=== PATIENT | female | born 1955 | race African-American/Black ===

== ENCOUNTER 2017-02-24 11:15 | Inpatient (IN) | payer MEDICARE, BC ==
[2017-02-24 14:30] VITALS: BMI 36.8
[2017-03-02] MEDS ORDERED: Tranexamic Acid 1,000 MG/100 ML BAG ONE ×2 (08:27→13:06)
[2017-03-02] MEDS ORDERED: Levofloxacin 500 mg/D5W 100 ml Premix Bag ONE (08:27)
[2017-03-02] MEDS ORDERED: Tranexamic Acid 1,000 MG in Sodium Chloride 0.9% 100 ML IVPB SCH (08:45)
[2017-03-02] MEDS ORDERED: Vancomycin HCl 1.5 GM in Sodium Chloride 0.9% 250 ML 300 ML IVPB SCH ×2 (08:45→21:00)
[2017-03-02] MEDS ORDERED: Ropivacaine 0.2% HCl/PF 20 ML ONE (09:33)
[2017-03-02] MEDS ORDERED: Fentanyl 100 MCG/2 ML VIAL ONE ×3 (09:33→15:23)
[2017-03-02] MEDS ORDERED: Midazolam HCl 2 mg/2 ml Vial ONE (09:33)
[2017-03-02] MEDS ORDERED: Ketorolac Tromethamine 30 MG/ML VIAL IVP PRN (10:38)
[2017-03-02] MEDS ORDERED: HYDROcodone/Acetaminophen 10/325 mg Tablet PO PRN (10:38)
[2017-03-02] MEDS ORDERED: Ropivacaine 0.2% 550 ML 550 ML NERVE BLCK SCH (10:38)
[2017-03-02] MEDS ORDERED: Ondansetron HCl/PF 4 MG/2 ML Vial IVP PRN ×2 (10:38→12:36)
[2017-03-02] MEDS ORDERED: Zolpidem Tartrate 5 MG TAB PO PRN ×2 (10:38→10:48)
[2017-03-02] MEDS ORDERED: Promethazine HCl 25 MG/ML VIAL IM PRN ×3 (10:38→12:36)
[2017-03-02] MEDS ORDERED: Fentanyl 100 MCG/2 ML VIAL SLOW IVP PRN ×2 (10:39→10:48)
[2017-03-02] MEDS ORDERED: diphenhydrAMINE 25 MG CAP PO PRN (10:48)
[2017-03-02] MEDS ORDERED: Acetaminophen 325 MG TAB PO PRN (10:48)
[2017-03-02] MEDS ORDERED: Ropivacaine 0.5% HCl/PF (150 MG/30 ML VIAL) ONE (11:02)
[2017-03-02] MEDS ORDERED: PHENYLEPHRINE-NS 100 MCG/ML 10 ML SYRINGE ONE (11:28)
[2017-03-02] MEDS ORDERED: Propofol 200 MG/20 ML VIAL ONE (11:28)
[2017-03-02] MEDS ORDERED: Ondansetron HCl/PF 4 MG/2 ML Vial ONE ×2 (11:28→15:40)
[2017-03-02] MEDS ORDERED: ePHEDrine/0.9% NaCl/PF SYRINGE 50 mg/10 ml ONE (11:28)
[2017-03-02] MEDS ORDERED: Promethazine HCl 25 MG/ML VIAL SLOW IVP PRN (12:36)
--- NOTE | 2017-03-02 12:57 | OP ---
PREOPERATIVE DIAGNOSIS: Degenerative joint disease of the left knee. POSTOPERATIVE DIAGNOSIS: Degenerative joint disease of the left knee. SURGEON: Choco Church M.D. CAFETERIA SUPERVISOR: Anthony Burgess PA-C. BLOOD LOSS: Minimal. SPECIMEN: None. DRAINS: None. COMPLICATIONS: None. TOURNIQUET TIME: 53 minutes. IMPLANTS USED: [place] [employer] 4 femur, 3 tibia, 11 mm CSX3 polyethylene, and A29 patella. PROCEDURE IN DETAIL: After informed consent was obtained in the preoperative holding area. The tone ent was taken to the operative suite where general anesthesia was induced. Once adequate level of ge neral anesthesia was obtained, the patient was positioned and a well-padded tourniquet was placed danica und the left proximal thigh. The left lower extremity was then prepped and draped in the usual steri le fashion. Prior to exsanguination, a time out was called and all members of the surgical team agre ed upon site, surgeon, and patient. The extremity was then exsanguinated and the tourniquet was rais ed. A midline longitudinal incision was then made directly over the patella extending two fingerbrea dths above the superior pole of the patella and two fingerbreadths inferior to the inferior patellar pole of the patella. Deeper subcutaneous layers were dissected sharply and local bleeding was contro lled with Bovie electrocautery. A quad tendon longitudinal split was then made sharply and a median parapatellar arthrotomy was carried out both sharp and with Bovie electrocautery, carried down to one fingerbreadth medial to the tibial tubercle. The knee was then placed into flexion and the patella was everted nicely, and a copious fat pad ectomy was performed allowing for greater exposure of the t ibia. The computer-assisted distal femoral fiducial was then placed and pinned firmly, and the dista l femoral cutting guide was pinned firmly into place. The oscillating saw was then used to remove th e appropriate amount of bone. The 4-in-1 cutting block was then placed on the distal femur and the o scillating saw was used to remove the appropriate amount of bone off of the anterior, posterior, and chamfer cuts. After completion of bone cuts, the anterior cruciate ligament was resected sharply and the posterior cruciate ligament retractor was placed and the tibia was subluxed for better exposure. Partial meniscectomies were carried out, and the tibial computer-assisted fiducial was pinned, and the cutting guide was placed. Oscillating saw was then used to remove the bone with Hohmann retracto rs used to take care and protect the collateral ligaments. After the tibial resection was performed, a laminar front desk was placed in between the freshened bone cuts. The knee placed at 90 degrees and further bilateral meniscectomies were carried out, and the curved osteotome and curettage was used t o remove any excess bone spurs in the posterior compartment. Exparel was then injected into the post erior capsule, ondina-articular synovia, pre-patella synovia, and musculature surrounding the capsule. The trial femoral component, tibial baseplate were placed with the appropriate polyethylene trial in sert with an appropriate polyethylene spacer and patellar button. The knee was taken through full ra nge of motion with flexion and extension from 0-90 degrees and patellar broach squarely in the troch michelle without any squinting or subluxation noted. The knee was also stable to varus and valgus stressi ng at 0, 15, 45, and 90 degrees of flexion. The drawer was negative. All trial components were then removed and the keel punch was used to provide the appropriate defect in the tibia with a mallet. Th e freshened bone cuts were copiously irrigated with pulsatile lavage of about 1-1/2 liters to remove all excess debris. The freshened bone cuts were then dried and with suction and lap sponge. The kne e was placed in flexion and retractors were placed to provide access to all bone cuts. Tobramycin im pregnated methyl methacrylate cement was then placed on the freshened bone cuts and implants which we re malleted firmly into place. Curettage and [place] elevators were used to remove any excess bone portia ent. The knee was placed into full extension and the patellar button was placed under compression, a nd the cement was allowed to cure. Once completed, the components were again taken through full rang e of motion and copious irrigation of the knee was carried out with another liter of normal saline. All components were inspected fully with full range of motion and varus and valgus stressing. There w as no laxity noted and full extension was observed clinically. Primary closure was accomplished with #2 interrupted Vicryl stitch of the arthrotomy defect. This was oversewn with a #2 running Quill ba rbed stitch. The gravitational platelet system was then injected into the arthrotomy prior to closur e. The subcutaneous layer was then closed with a running 0 barbed Monocryl stitch and skin closure a ccomplished with a running subcuticular 3-0 Monocryl barbed Quill stitch and augmented with cement on the skin. Tourniquet was lowered. Good spontaneous return of distal pulses was noted clinically an d a sterile dressing was applied to the incision. The procedure was terminated without any complicat ions. The patient was awakened in the operative suite and the tourniquet was removed, and the patien t was taken to the recovery room in stable condition.
--- NOTE | 2017-03-02 14:33 | RAD ---
LEFT KNEE TWO VIEWS: History: Post op total knee. Comparison: None. FINDINGS/IMPRESSION: Satisfactory appearance of left total knee arthroplasty. Expected post-operative gas and edema. POS: [facility]
[2017-03-02] MEDS ORDERED: HYDROcodone/Acetaminophen 10/325 mg Tablet ONE (15:35)
[2017-03-02] MEDS ORDERED: HYDROcodone/Acetaminophen 10/325 mg Tablet PO SCH (15:45)
[2017-03-02] MEDS ORDERED: Ondansetron HCl/PF 4 MG/2 ML Vial SLOW IVP SCH (15:45)
[2017-03-02] MEDS: Sodium Chloride 0.9% 1,000 ML IV SCH (17:44)
[2017-03-02] MEDS: HYDROcodone/Acetaminophen 10/325 mg Tablet PO PRN ×2 (18:29→23:24)
--- NOTE | 2017-03-02 18:45 | PDOC.PN ---
- Subjective Encounter Start Date: 03/02/17 Encounter Start Time: 17:45 Pt seen for management of medical comorbidities, including hypertension. Denies chest pain, shortness of breath, fevers or chills. - Objective MAR Reviewed: Yes Vital Signs & Weight: Vital Signs (12 hours) Temp Pulse Resp BP Pulse Ox 03/02/17 16:20 97.5 F L 87 18 103/67 96 Weight Weight 215 lb Phys Exam - Physical Examination Obese HEENT: moist MMs Neck: supple Respiratory: clear to auscultation bilateral Cardiovascular: RRR Gastrointestinal: soft s/p L knee surgery Neurological: moves all 4 limbs Psychiatric: normal affect Dx/Plan (1) Hypertension Code(s): I10 - ESSENTIAL (PRIMARY) HYPERTENSION Status: Chronic (2) Diabetes type 2, controlled Code(s): E11.9 - TYPE 2 DIABETES MELLITUS WITHOUT COMPLICATIONS Status: Chronic (3) Dyslipidemia Code(s): E78.5 - HYPERLIPIDEMIA, UNSPECIFIED Status: Chronic (4) Hypothyroidism Code(s): E03.9 - HYPOTHYROIDISM, UNSPECIFIED Status: Chronic (5) Obesity (BMI 30-39.9) Code(s): E66.9 - OBESITY, UNSPECIFIED Status: Chronic (6) Tobacco abuse Code(s): Z72.0 - TOBACCO USE Status: Chronic - Plan * . Monitor vital signs, titrate antihypertensives as needed. Start accuchecksw, insulin sliding scale. Smoking cessation counseling provided, start nicotine replacement therapy. Review of Systems - Review of Systems Respiratory: negative: Cough, Dry, Shortness of Breath, Hemoptysis, SOB with Excertion, Pleuritic Pain, Sputum, Wheezing Cardiovascular: negative: chest pain, palpitations, orthopnea, paroxysmal nocturnal dyspnea, edema, light headedness - Medications/Allergies Allergies/Adverse Reactions: Allergies Allergy/AdvReac Type Severity Reaction Status Date / Time amitriptyline Allergy Verified 02/24/17 14:31 amlodipine besylate Allergy Swollen Verified 02/24/17 14:31 [[address] [facility]] Lips amoxicillin Allergy Verified 02/24/17 14:31 atorvastatin Allergy Verified 02/24/17 14:31 azithromycin Allergy Verified 02/24/17 14:31 simvastatin Allergy Verified 02/24/17 14:33 tramadol Allergy makes me Verified 02/24/17 14:31 crazy Medications: Current Medications Acetaminophen (Tylenol) 650 mg PO Q4H PRN PRN Reason: RAMOS/ T > 101F; Mild Pain (1-3) Hydrocodone Bitart/Acetaminophen ([place] 10/325) 1 tab PO Q4H PRN PRN Reason: Pain (1-3) Hydrocodone Bitart/Acetaminophen ([place] 10/325) 2 tab PO Q4H PRN PRN Reason: PAIN (4-6) Last Admin: 03/02/17 18:29 Dose: 2 tab Alogliptin Benzoate (Alogliptin) 25 mg PO QAM [facility] Aspirin (Aspirin) 325 mg PO BID [facility] Celecoxib (Celebrex) 200 mg PO BID [facility] Cyclobenzaprine HCl (Flexeril) 5 mg PO TID PRN PRN Reason: SPASM Diphenhydramine HCl (Benadryl) 25 mg PO Q6H PRN PRN Reason: Itching Ergocalciferol (Drisdol) 1.25 mg PO Q7DAYS [facility] Fentanyl (Sublimaze) 50 mcg SLOW IVP Q1H PRN PRN Reason: breakthrough pain Ferrous Gluconate (Fergon) 324 mg PO BID-WM [facility] Glipizide (Glucotrol) 5 mg PO DAILY-AC [facility] Ropivacaine (Ropivacaine 0.2% 550 Ml) 550 mls @ 10 mls/hr NERVE BLCK INF [facility] Levofloxacin 500 mg/ Device 100 mls @ 100 mls/hr IVPB 0900 [facility] Stop: 03/03/17 09:59 Sodium Chloride (Normal Saline 0.9%) 1,000 mls @ 100 mls/hr IV .Q10H [facility] Last Admin: 03/02/17 17:44 Dose: Not Given Vancomycin HCl 1.5 gm/ Sodium (Chloride) 300 mls @ 200 mls/hr IVPB 2100 [facility] Stop: 03/02/17 22:29 Iron/Minerals/Multivitamins (Theragran M) 1 tab PO DAILY [facility] Ketorolac Tromethamine (Toradol) 15 mg IVP Q6H PRN PRN Reason: Moderate Pain (4-6) Stop: 03/05/17 10:39 Levothyroxine Sodium (Synthroid) 75 mcg PO 0600 [facility] Mometasone Furoate/Formoterol Fumar (Dulera 200 Mcg/5 Mcg Inhaler) 1 puff INH BID-RT [facility] Ondansetron HCl (Zofran) 4 mg IVP Q6H PRN PRN Reason: Nausea/Vomiting Pregabalin (Lyrica) 75 mg PO BID [facility] Promethazine HCl (Phenergan) 12.5 mg IM Q4H PRN PRN Reason: Nausea/Vomiting Rosuvastatin Calcium (Crestor) 10 mg PO HS [facility] Senna/Docusate Sodium (Senokot S) 2 tab PO BID [facility] Sertraline HCl (Zoloft) 50 mg PO QAM [facility] Sodium Chloride (Flush - Normal Saline) 10 ml IVF PRN PRN PRN Reason: Saline Flush Triamterene/HCTZ (Maxzide-25) 1 tab PO QAM [facility] Zolpidem Tartrate (Ambien) 5 mg PO HSPRN PRN PRN Reason: Insomnia
[2017-03-02] MEDS ORDERED: hydrALAZINE 20 MG/ML VIAL SLOW IVP PRN (19:04)
[2017-03-02] MEDS ORDERED: Dextrose 50% Abboject 50 ML SYRINGE SLOW IVP PRN (19:04)
[2017-03-02] MEDS ORDERED: Dextrose 5% in Water 1,000 ML IV PRN (19:04)
[2017-03-02] MEDS: Cyclobenzaprine 10 MG TAB PO PRN (19:48)
[2017-03-02] MEDS: Pregabalin 75 MG CAP PO SCH (19:48)
[2017-03-02] MEDS: Nicotine 14 MG PATCH TD SCH (19:49)
[2017-03-02] MEDS: Aspirin 325 MG TAB PO SCH (19:49)
[2017-03-02] MEDS: Mometasone/Formoterol 120 PUFF INHALER INH SCH (20:36)
[2017-03-03] MEDS: Sodium Chloride 0.9% 1,000 ML IV SCH ×3 (00:42→16:49)
[2017-03-03] MEDS: HYDROcodone/Acetaminophen 10/325 mg Tablet PO PRN ×2 (04:49→09:00)
[2017-03-03] MEDS: Levothyroxine Sodium 75 MCG TAB PO SCH (04:50)
[2017-03-03 05:20] LABS: Hematocrit 39.9 % (36.0-47.0); Mean Platelet Volume 6.7 fL (7.4-10.4); Red Blood Cell (RBC) Count 3.73 mill/uL (4.20-5.40); White Blood Cell (WBC) Count 11.3 thou/uL (4.8-10.8)
[2017-03-03] MEDS: Mometasone/Formoterol 120 PUFF INHALER INH SCH ×2 (07:03→18:29)
[2017-03-03] MEDS: Ferrous Gluconate 324 MG TAB PO SCH ×2 (07:52→17:20)
[2017-03-03] MEDS: glipiZIDE 5 MG TAB PO SCH (07:52)
[2017-03-03] MEDS: Alogliptin 25 MG TAB PO SCH (08:52)
[2017-03-03] MEDS: Aspirin 325 MG TAB PO SCH ×2 (08:52→20:32)
[2017-03-03] MEDS: Pregabalin 75 MG CAP PO SCH ×2 (08:53→20:31)
[2017-03-03] MEDS: Multivitamin W/ Minerals 1 TAB PO SCH (08:53)
[2017-03-03] MEDS: Senokot S 8.6-50 MG TAB PO SCH ×2 (08:54→20:31)
[2017-03-03] MEDS: Triamterene/Hydrochlorothiazide 37.5 mg/25 mg Tablet PO SCH (08:54)
[2017-03-03] MEDS: Cyclobenzaprine 10 MG TAB PO PRN (08:59)
[2017-03-03] MEDS ORDERED: Fentanyl 5000 MCG/250 ML CADD IV PRN (12:09)
[2017-03-03] MEDS ORDERED: Naloxone HCl 0.4 mg/ml Vial IV PRN (12:09)
[2017-03-03] MEDS ORDERED: FENTANYL IV PRN (13:45)
[2017-03-03] MEDS ORDERED: SODIUM CHLORIDE IV PRN (13:45)
[2017-03-03] MEDS ORDERED: ADMIXTURE FEE IV PRN (13:45)
[2017-03-03] MEDS: HumaLOG 300 UNITS/3 ML VIAL SC PRN (17:21)
--- NOTE | 2017-03-03 19:27 | PDOC.PN ---
- Subjective Encounter Start Date: 03/03/17 Encounter Start Time: 19:26 Subjective: seen and examined feeling nauseous - Objective Vital Signs & Weight: Vital Signs (12 hours) Temp Pulse Resp BP Pulse Ox Pulse Ox Pulse Ox 03/03/17 18:29 85 16 94 L 03/03/17 15:30 98.1 F 97 16 107/70 96 03/03/17 11:25 97.9 F 91 16 99/68 96 03/03/17 08:48 92 L 87 L 03/03/17 07:45 99 F 108 H 20 92 L Pulse Ox 03/03/17 18:29 03/03/17 15:30 03/03/17 11:25 03/03/17 08:48 90 L 03/03/17 07:45 Weight Admit Weight 215 lb Weight 215 lb I&O: 03/02/17 03/03/17 03/04/17 06:59 06:59 06:59 Intake Total 1420 1390 Output Total 500 450 Balance 920 940 Result Diagrams: 03/03/17 04:48 Additional Labs: Accuchecks 03/03/17 03/03/17 03/03/17 15:51 11:33 05:55 POC Glucose 223 H 137 H 211 H Phys Exam - Physical Examination Constitutional: NAD HEENT: PERRLA, moist MMs, sclera anicteric, TM's clear Neck: no nodes, no JVD, supple, full ROM Respiratory: no wheezing, no rales, no rhonchi Cardiovascular: RRR, no significant murmur, no rub Gastrointestinal: soft, non-tender, no distention, positive bowel sounds Dx/Plan (1) S/P lumbar fusion Code(s): Z98.1 - ARTHRODESIS STATUS Status: Acute (2) Status post total right knee replacement Code(s): Z96.651 - PRESENCE OF RIGHT ARTIFICIAL KNEE JOINT Status: Acute (3) Anxiety Code(s): F41.9 - ANXIETY DISORDER, UNSPECIFIED Status: Chronic (4) Diabetes type 2, controlled Code(s): E11.9 - TYPE 2 DIABETES MELLITUS WITHOUT COMPLICATIONS Status: Chronic (5) Dyslipidemia Code(s): E78.5 - HYPERLIPIDEMIA, UNSPECIFIED Status: Chronic (6) Hypertension Code(s): I10 - ESSENTIAL (PRIMARY) HYPERTENSION Status: Chronic (7) Hypothyroidism Code(s): E03.9 - HYPOTHYROIDISM, UNSPECIFIED Status: Chronic (8) Obesity (BMI 30-39.9) Code(s): E66.9 - OBESITY, UNSPECIFIED Status: Chronic - Plan plan discussed w/ family, PT/OT, health social work professor, speech therapy pain management via [employer]OR pump -: Zofran for nausea -: Dispo planning * .
[2017-03-03] MEDS: Nicotine 14 MG PATCH TD SCH (20:31)
[2017-03-03] MEDS: Ondansetron HCl/PF 4 MG/2 ML Vial IVP PRN (20:32)
[2017-03-04] MEDS: Sodium Chloride 0.9% 1,000 ML IV SCH ×2 (03:18→13:31)
[2017-03-04 05:56] LABS: Hematocrit 37.2 % (36.0-47.0); Mean Platelet Volume 6.8 fL (7.4-10.4); Red Blood Cell (RBC) Count 3.51 mill/uL (4.20-5.40); White Blood Cell (WBC) Count 12.8 thou/uL (4.8-10.8)
[2017-03-04] MEDS: HumaLOG 300 UNITS/3 ML VIAL SC PRN ×3 (06:05→20:51)
[2017-03-04] MEDS: Levothyroxine Sodium 75 MCG TAB PO SCH (06:07)
[2017-03-04] MEDS: glipiZIDE 5 MG TAB PO SCH (06:57)
[2017-03-04] MEDS: Mometasone/Formoterol 120 PUFF INHALER INH SCH ×2 (07:34→18:27)
[2017-03-04] MEDS: Senokot S 8.6-50 MG TAB PO SCH ×2 (08:34→20:52)
[2017-03-04] MEDS: Ferrous Gluconate 324 MG TAB PO SCH ×2 (08:37→17:14)
[2017-03-04] MEDS: Pregabalin 75 MG CAP PO SCH ×2 (08:38→21:07)
[2017-03-04] MEDS: Triamterene/Hydrochlorothiazide 37.5 mg/25 mg Tablet PO SCH (08:38)
[2017-03-04] MEDS: Aspirin 325 MG TAB PO SCH ×2 (08:38→20:50)
[2017-03-04] MEDS: Alogliptin 25 MG TAB PO SCH (08:39)
[2017-03-04] MEDS: Multivitamin W/ Minerals 1 TAB PO SCH (08:39)
[2017-03-04] MEDS: HYDROcodone/Acetaminophen 10/325 mg Tablet PO PRN ×3 (09:54→19:44)
[2017-03-04 17:24] LABS: Anion Gap 9 mmol/L (10-20); BUN (Urea Nitrogen) 11 mg/dL (9.8-20.1); BUN/Creatinine Ratio 12.79; Calc. Creatinine Clearance 103 mL/min (70-130); Calcium 8.3 mg/dL (7.8-10.44); Carbon Dioxide 27 mmol/L (23-31); Chloride 100 mmol/L (98-107); Estimated GFR-MDRD 81; Magnesium 2.1 mg/dL (1.6-2.6); Phosphorus 2.4 mg/dL (2.3-4.7)
[2017-03-04] MEDS: Ondansetron HCl/PF 4 MG/2 ML Vial IVP PRN (17:25)
[2017-03-04 17:51] LABS: Troponin I 0.165 ng/mL (< 0.028)
--- NOTE | 2017-03-04 18:14 | RAD ---
PORTABLE CHEST 03/04/17 PROVIDED CLINICAL HISTORY: Shortness of breath. FINDINGS: Comparison 07/04/16. The cardiac silhouette remains enlarged. Vascular calcification involves the aortic arch. There is qu estion of left mid lung zone air space disease. Evaluation is limited by portable technique and patie nt body habitus. IMPRESSION: 1. Cardiomegaly. 2. Possible left mid lung zone air space disease. Followup PA and lateral views of the chest are recommended. POS: [facility]
--- NOTE | 2017-03-04 19:34 | PDOC.PN ---
- Subjective Encounter Start Date: 03/04/17 Encounter Start Time: 17:00 Patient seen and examined. Was in pain when seen around 9 am. RN called around 4 pm due to tachycardia with temp 100. No overnight events - Objective MAR Reviewed: Yes Vital Signs & Weight: Vital Signs (12 hours) Temp Pulse Resp BP Pulse Ox 03/04/17 18:27 78 16 03/04/17 16:48 92/62 92 L 03/04/17 16:46 119 H 22 H 94/68 78 L 03/04/17 16:00 100 F H 120 H 22 H 94/59 L 94 L 03/04/17 12:35 97.9 F 79 18 100/70 96 03/04/17 11:20 110 H 18 99/68 94 L 03/04/17 10:02 116 H 20 95/63 03/04/17 08:00 98.2 F 82 18 99/68 93 L 03/04/17 07:55 98 F 98 18 Weight Admit Weight 215 lb Weight 215 lb I&O: 03/03/17 03/04/17 03/05/17 06:59 06:59 06:59 Intake Total 1420 1390 950 Output Total 500 1400 Balance 920 -10 950 Result Diagrams: 03/05/17 05:07 03/04/17 16:55 Additional Labs: Accuchecks 03/04/17 03/04/17 03/04/17 16:36 12:00 05:27 POC Glucose 219 H 132 H 210 H 03/03/17 20:55 POC Glucose 180 H EKG Reviewed by me: Yes (ST) Phys Exam - Physical Examination Constitutional: NAD Respiratory: no wheezing, no rhonchi Dec AE at bases, Symmetrical, Scat rales at bases Cardiovascular: RRR, no rub tachycardic, no heaves/pulsations Gastrointestinal: soft, non-tender, no distention, positive bowel sounds Musculoskeletal: no edema Neurological: moves all 4 limbs Psychiatric: normal affect, A&O x 3 Dx/Plan - Plan DVT proph w/SCDs (ASA BID per protocol) IMPRESSION: 1. Sinus tachycardia due to low grade fever 2. Fever - prob due to suspected Pneumonia ?Pneumococcus 3. Elevated troponins prob due to #1 4. DM2 5. HTN 6. Obesity BMI 36.9 7. Hypokalemia PLAN: * Empiric Atbx * Follow troponins * AM labs * Encourage IS * Cont to monitor * Replace Potassium Review of Systems - Medications/Allergies Allergies/Adverse Reactions: Allergies Allergy/AdvReac Type Severity Reaction Status Date / Time amitriptyline Allergy Verified 02/24/17 14:31 amlodipine besylate Allergy Swollen Verified 02/24/17 14:31 [From [facility]] Lips amoxicillin Allergy Verified 02/24/17 14:31 atorvastatin Allergy Verified 02/24/17 14:31 azithromycin Allergy Verified 02/24/17 14:31 simvastatin Allergy Verified 02/24/17 14:33 tramadol Allergy makes me Verified 02/24/17 14:31 crazy Medications: Current Medications Acetaminophen (Tylenol) 650 mg PO Q4H PRN PRN Reason: RAMOS/ T > 101F; Mild Pain (1-3) Hydrocodone Bitart/Acetaminophen ([place] 10/325) 1 tab PO Q4H PRN PRN Reason: Pain (1-3) Hydrocodone Bitart/Acetaminophen ([place] 10/325) 2 tab PO Q4H PRN PRN Reason: PAIN (4-6) Last Admin: 03/04/17 15:29 Dose: 2 tab Alogliptin Benzoate (Alogliptin) 25 mg PO QAM [facility] Last Admin: 03/04/17 08:39 Dose: 25 mg Aspirin (Aspirin) 325 mg PO BID [facility] Last Admin: 03/04/17 08:38 Dose: 325 mg Celecoxib (Celebrex) 200 mg PO BID [facility] Cyclobenzaprine HCl (Flexeril) 5 mg PO TID PRN PRN Reason: SPASM Last Admin: 03/03/17 08:59 Dose: 5 mg Dextrose/Water (Dextrose 50%) 25 gm SLOW IVP PRN PRN PRN Reason: Hypoglycemia Diphenhydramine HCl (Benadryl) 25 mg PO Q6H PRN PRN Reason: Itching Ergocalciferol (Drisdol) 1.25 mg PO Q7DAYS [facility] Fentanyl (Sublimaze) 50 mcg SLOW IVP Q1H PRN PRN Reason: breakthrough pain Ferrous Gluconate (Fergon) 324 mg PO BID-[facility] Last Admin: 03/04/17 17:14 Dose: Not Given Glipizide (Glucotrol) 5 mg PO DAILY-[facility] Last Admin: 03/04/17 06:57 Dose: 5 mg Glucagon (Glucagon) 1 mg IM PRN PRN PRN Reason: Hypoglycemia Hydralazine HCl (Apresoline) 10 mg SLOW IVP Q6H PRN PRN Reason: SBP Greater Than 170 Ropivacaine (Ropivacaine 0.2% 550 Ml) 550 mls @ 10 mls/hr NERVE BLCK INF [facility] Dextrose/Water (D5w) 1,000 mls @ 0 mls/hr IV .Q0M PRN; As Directed PRN Reason: Hypoglycemia Fentanyl 5,000 mcg/Miscellaneous Medication 1 each/ Sodium Chloride 250 mls @ 0 mls/hr IV INF PRN; As Directed PRN Reason: Pain Last Admin: 03/03/17 14:34 Dose: 250 mls Insulin Human Lispro (Humalog) 0 units SC .MILD SLIDING SCALE PRN PRN Reason: Mild Correctional Scale Last Admin: 03/04/17 18:51 Dose: 4 unit Iron/Minerals/Multivitamins (Theragran M) 1 tab PO DAILY [facility] Last Admin: 03/04/17 08:39 Dose: 1 tab Ketorolac Tromethamine (Toradol) 15 mg IVP Q6H PRN PRN Reason: Moderate Pain (4-6) Stop: 03/05/17 10:39 Last Admin: 03/04/17 08:39 Dose: 15 mg Levothyroxine Sodium (Synthroid) 75 mcg PO 0600 [facility] Last Admin: 03/04/17 06:07 Dose: 75 mcg Mometasone Furoate/Formoterol Fumar (Dulera 200 Mcg/5 Mcg Inhaler) 1 puff INH BID-RT [facility] Last Admin: 03/04/17 18:27 Dose: 1 puff Naloxone HCl (Narcan) 0.2 mg IV Q5MIN PRN PRN Reason: RR <8 or pt obtun/unarousable Nicotine (Nicoderm Patch) 14 mg TD Q24HR [facility] Last Admin: 03/03/17 20:31 Dose: 14 mg Ondansetron HCl (Zofran) 4 mg IVP Q6H PRN PRN Reason: Nausea/Vomiting Last Admin: 03/04/17 17:25 Dose: 4 mg Pregabalin (Lyrica) 75 mg PO BID [facility] Last Admin: 03/04/17 08:38 Dose: 75 mg Promethazine HCl (Phenergan) 12.5 mg IM Q4H PRN PRN Reason: Nausea/Vomiting Rosuvastatin Calcium (Crestor) 10 mg PO HS [facility] Last Admin: 03/03/17 20:32 Dose: 10 mg Senna/Docusate Sodium (Senokot S) 2 tab PO BID [facility] Last Admin: 03/04/17 08:34 Dose: 2 tab Sertraline HCl (Zoloft) 50 mg PO QAM [facility] Last Admin: 03/04/17 08:38 Dose: 50 mg Sodium Chloride (Flush - Normal Saline) 10 ml IVF PRN PRN PRN Reason: Saline Flush Triamterene/HCTZ (Maxzide-25) 1 tab PO QAM [facility] Last Admin: 03/04/17 08:38 Dose: 1 tab Zolpidem Tartrate (Ambien) 5 mg PO HSPRN PRN PRN Reason: Insomnia
[2017-03-04 20:34] LABS: Troponin I 0.224 ng/mL (< 0.028)
[2017-03-04] MEDS: Nicotine 14 MG PATCH TD SCH (20:50)
[2017-03-04] MEDS: Cyclobenzaprine 10 MG TAB PO PRN (23:05)
[2017-03-05] MEDS: HYDROcodone/Acetaminophen 10/325 mg Tablet PO PRN ×4 (02:00→13:48)
[2017-03-05 05:48] LABS: Hematocrit 36.7 % (36.0-47.0); Mean Platelet Volume 7.3 fL (7.4-10.4); Red Blood Cell (RBC) Count 3.47 mill/uL (4.20-5.40); White Blood Cell (WBC) Count 12.4 thou/uL (4.8-10.8)
[2017-03-05 06:11] LABS: Troponin I 0.156 ng/mL (< 0.028)
[2017-03-05] MEDS: Levothyroxine Sodium 75 MCG TAB PO SCH (06:12)
[2017-03-05] MEDS: HumaLOG 300 UNITS/3 ML VIAL SC PRN (06:14)
[2017-03-05] MEDS: Mometasone/Formoterol 120 PUFF INHALER INH SCH (07:10)
[2017-03-05] MEDS: Alogliptin 25 MG TAB PO SCH (08:44)
[2017-03-05] MEDS: Pregabalin 75 MG CAP PO SCH (08:45)
[2017-03-05] MEDS: glipiZIDE 5 MG TAB PO SCH (08:45)
[2017-03-05] MEDS: Aspirin 325 MG TAB PO SCH (08:45)
[2017-03-05] MEDS: Ferrous Gluconate 324 MG TAB PO SCH (08:45)
[2017-03-05] MEDS: Multivitamin W/ Minerals 1 TAB PO SCH (08:45)
[2017-03-05] MEDS: Triamterene/Hydrochlorothiazide 37.5 mg/25 mg Tablet PO SCH (08:48)
[2017-03-05] MEDS: Senokot S 8.6-50 MG TAB PO SCH (08:48)
[2017-03-05] MEDS ORDERED: Potassium Chloride 10 MEQ TAB PO SCH (09:30)
[2017-03-05 12:23] VITALS: BP 109/75; TEMP 98.1
--- NOTE | 2017-03-05 20:56 | PDOC.PN ---
- Subjective Encounter Start Date: 03/05/17 Encounter Start Time: 09:00 Patient seen and examined. No new complaints. No overnight events. Feels better. No CP/SOB. On room air - Objective Vital Signs & Weight: Vital Signs (12 hours) Temp Pulse Resp BP Pulse Ox 03/05/17 13:19 96 16 94 L 03/05/17 12:00 96 03/05/17 11:47 98.1 F 104 H 16 109/75 94 L 03/05/17 10:35 100 16 Weight Admit Weight 215 lb Weight 215 lb I&O: 03/04/17 03/05/17 03/06/17 06:59 06:59 06:59 Intake Total 1390 1450 Output Total 1400 Balance -10 1450 Result Diagrams: 03/05/17 05:07 03/04/17 16:55 Additional Labs: Accuchecks 03/05/17 03/05/17 11:48 05:47 POC Glucose 168 H 222 H Phys Exam - Physical Examination Constitutional: NAD Respiratory: no wheezing, no rhonchi Cardiovascular: RRR, no rub Gastrointestinal: soft, non-tender, positive bowel sounds Musculoskeletal: no edema Dx/Plan - Plan IMPRESSION: 1. Sinus tachycardia due to low grade fever - resolved. 2. Fever - prob due to suspected Pneumonia ?Pneumococcus - on Levaquin - improving 3. Elevated troponins prob due to #1 with hypoxia requiring supplemental O2 4. DM2 5. HTN 6. Obesity BMI 36.9 7. Hypokalemia PLAN: * Cont Levaquin - script sent * Advised patient to follow up with Dr Michel for possible stress test * AM labs * Encourage IS Laboratory Tests 03/04/17 03/04/17 03/05/17 16:55 19:54 05:07 Troponin I 0.165 H 0.224 H 0.156 H Review of Systems - Review of Systems Cardiovascular: negative: chest pain, palpitations, orthopnea, paroxysmal nocturnal dyspnea, edema, light headedness Gastrointestinal: negative: Nausea, Vomiting, Abdominal Pain, Diarrhea, Constipation, Melena, Hematochezia - Medications/Allergies Allergies/Adverse Reactions: Allergies Allergy/AdvReac Type Severity Reaction Status Date / Time amitriptyline Allergy Verified 02/24/17 14:31 amlodipine besylate Allergy Swollen Verified 02/24/17 14:31 [From [facility]] Lips amoxicillin Allergy Verified 02/24/17 14:31 atorvastatin Allergy Verified 02/24/17 14:31 azithromycin Allergy Verified 02/24/17 14:31 simvastatin Allergy Verified 02/24/17 14:33 tramadol Allergy makes me Verified 02/24/17 14:31 jason
[2017-03-05] MEDS ORDERED: CeleCOXIB 100 MG CAP PO SCH (21:00)
--- NOTE | 2017-03-08 12:16 | EKG ---
Test Reason : Blood Pressure : / mmHG Vent. Rate : 118 BPM Atrial Rate : 118 BPM P-R Int : 140 ms QRS Dur : 086 ms QT Int : 330 ms P-R-T Axes : 055 -22 -29 degrees QTc Int : 462 ms Sinus tachycardia Possible Left atrial enlargement Septal infarct , age undetermined cannot be excluded Abnormal ECG Confirmed by RUBY STEVENSON ([id number]) on 03/08/2017 12:16:16 PM Referred By: JOLIE Confirmed By:RUBY STEVENSON
[2017-03-09] MEDS ORDERED: Ergocalciferol 1.25 MG(50,000 UNITS) CAP PO SCH (09:00)
--- NOTE | 2017-03-09 13:23 | DIS ---
DATE OF ADMISSION: 03/02/2017 DATE OF DISCHARGE: 03/05/2017 PREOPERATIVE DIAGNOSIS: Left knee osteoarthritis/degenerative joint disease. DISCHARGE DIAGNOSIS: Left knee osteoarthritis/degenerative joint disease. PROCEDURE: The patient underwent a left total knee replacement. HOSPITAL COURSE: Hospital stay was unremarkable. The patient was admitted to [address] she worked with staff, physical therapy, occupational therapy, and did quite well. She was also seen by our medical service and overall our hospital stay was unremarkable. DISCHARGE CONDITION: Good/stable. DISPOSITION: Home with home health. FOLLOWUP: Followup would be in 3-4 weeks or sooner if there are problems or concerns. DISCHARGE MEDICATIONS: Given with usage instructions. This is Anthony Burgess PA-C dictating for Choco Church M.D.
== END 2017-03-05 14:10 | disposition home health service (06) | DRG 469 ==
LOC: SJJU 03-02 08:00 → SURG B 03-02 16:54
PROVIDERS: ADMIT Orthopaedic Surgery; ATTEND Orthopaedic Surgery
PROC: 0SRD0J9 Replacement of Left Knee Joint with Synthetic Substitute, Cemented, Open Approach (ICD-10-PCS; principal; 2017-03-02)
PROC: 3E0T3BZ Introduction of Anesthetic Agent into Peripheral Nerves and Plexi, Percutaneous Approach (ICD-10-PCS; 2017-03-02)
DX: M17.12 Unilateral primary osteoarthritis, left knee (principal); J13 Pneumonia due to Streptococcus pneumoniae; M06.9 Rheumatoid arthritis, unspecified; E03.9 Hypothyroidism, unspecified; E11.9 Type 2 diabetes mellitus without complications; I10 Essential (primary) hypertension; M79.7 Fibromyalgia; G47.33 Obstructive sleep apnea (adult) (pediatric); E55.9 Vitamin D deficiency, unspecified; F32.9 Major depressive disorder, single episode, unspecified; J45.909 Unspecified asthma, uncomplicated; K57.30 Diverticulosis of large intestine without perforation or abscess without bleeding; Z96.651 Presence of right artificial knee joint; Z98.1 Arthrodesis status; F17.210 Nicotine dependence, cigarettes, uncomplicated; Z79.84 Long term (current) use of oral hypoglycemic drugs; Z88.1 Allergy status to other antibiotic agents; Z88.8 Allergy status to other drugs, medicaments and biological substances; R50.82 Postprocedural fever; R00.0 Tachycardia, unspecified; E66.9 Obesity, unspecified; Z68.36 Body mass index [BMI] 36.0-36.9, adult; E87.6 Hypokalemia; F41.9 Anxiety disorder, unspecified; E78.2 Mixed hyperlipidemia; R09.02 Hypoxemia
CPT/HCPCS: 36415; 36416; 71010; 80069; 83735; 84484; 85027; 93005; 93010; 94640; 94664; 94760; A4306; C1713; C1776; G8978-GP-CL; G8979-GP-CI; J1885; J1956; J2250; J2405; J2704; J2795; J3010; J3370; J7050; J7620

== ENCOUNTER 2017-02-24 13:56 | Outpatient (CLI) | payer MEDICARE, BC ==
--- NOTE | 2017-02-24 15:55 | RAD ---
TWO VIEWS CHEST: Comparison: 05-21-15 History: Pre-operative radiograph. FINDINGS: Two views of the chest show normal sized cardiomediastinal silhouette. There is no evidence of consol idation, mass, or pleural effusion. Bone anchors are seen in the left humerus from prior left shoulde r surgery. IMPRESSION: No evidence of acute cardiopulmonary disease. POS: [facility]
[2017-02-24 16:23] LABS: Bilirubin Negative (Negative); Blood, Urine Negative (Negative); Glucose, Urine (Dipstick) Negative (Negative); Ketone, Urine Negative (Negative); Nitrite Negative (Negative); Protein, Urine (Dipstick) Negative (Neg-Trace); Urobilinogen 0.2 mg/dL (0.2-1.0)
[2017-02-24 16:25] LABS: Bacteria/HPF None Seen HPF (None Seen); Hyaline Casts/LPF 0-3 HYALINE CAST LPF (0-3 Hyaline)
[2017-02-24 16:28] LABS: Prothrombin Time 13.3 SEC (12.0-14.7)
[2017-02-24 16:29] LABS: PTT 35.5 SEC (22.9-36.1)
[2017-02-24 16:39] LABS: Anion Gap 14 mmol/L (10-20); BUN (Urea Nitrogen) 23 mg/dL (9.8-20.1); Calc. Creatinine Clearance 0 mL/min (70-130); Calcium 9.8 mg/dL (7.8-10.44); Carbon Dioxide 28 mmol/L (23-31); Chloride 103 mmol/L (98-107); Estimated GFR-MDRD 76
[2017-02-24 18:59] LABS: #Basophils 0.1 thou/uL (0.0-0.2); #Eosinphils 0.1 thou/uL (0.0-0.7); #Lymphocytes 4.5 thou/uL (1.20-3.40); #Monocytes 0.9 thou/uL (0.11-0.59); #Neutrophils 8.4 thou/uL (1.40-6.50); %Basophils 0.8 % (0.0-1.0); %Eosinophils 0.9 % (0.0-10.0); %Lymphocytes 32.1 % (21.0-51.0); %Monocytes 6.2 % (0.0-10.0); Hematocrit 50.9 % (36.0-47.0); Macrocytosis SLIGHT = 6-15 cells (100X) (0-5/hpf); Mean Platelet Volume 6.9 fL (7.4-10.4); Polychromasia SLIGHT = 2-3 cells (100X) (0-2/hpf); Red Blood Cell (RBC) Count 4.81 mill/uL (4.20-5.40); White Blood Cell (WBC) Count 14.1 thou/uL (4.8-10.8)
== END 2017-02-24 13:57 | disposition home or self-care (01) ==
LOC: LABBT 13:56
PROVIDERS: ATTEND Orthopaedic Surgery
DX: Z01.818 Encounter for other preprocedural examination (principal); M17.12 Unilateral primary osteoarthritis, left knee
CPT/HCPCS: 71020; 80048; 81001; 85025; 85610; 85730; 86850; 86900; 86901; 87081; 93005; 93010

== ENCOUNTER 2017-03-18 09:25 | Inpatient (IN) | payer MEDICARE, BC ==
[2017-03-17 14:40] VITALS: BMI 36.8
[2017-03-18 10:14] LABS: #Basophils 0.1 thou/uL (0.0-0.2); #Eosinphils 0.1 thou/uL (0.0-0.7); #Lymphocytes 3.2 thou/uL (1.20-3.40); #Monocytes 0.6 thou/uL (0.11-0.59); #Neutrophils 6.5 thou/uL (1.40-6.50); %Basophils 0.6 % (0.0-1.0); %Lymphocytes 30.7 % (21.0-51.0); %Monocytes 5.9 % (0.0-10.0); %Neutrophils 61.8 % (42.0-75.0); Hemoglobin 13.8 g/dL (12.0-16.0); Mean Corpuscular HGB CONC 33.1 g/dL (32.0-36.0); Mean Corpuscular Hemoglobin 35.5 pg (27.0-31.0); Mean Platelet Volume 6.2 fL (7.4-10.4); Platelet Count 401 thou/uL (130-400); RBC Distribution Width 14.3 % (11.5-14.5); Red Blood Cell (RBC) Count 3.88 mill/uL (4.20-5.40); White Blood Cell (WBC) Count 10.6 thou/uL (4.8-10.8)
[2017-03-18] MEDS ORDERED: Fentanyl 100 MCG/2 ML VIAL ONE ×4 (10:53→14:46)
[2017-03-18] MEDS ORDERED: cefTRIAXone\\ROCEPHIN 2 GM in Sodium Chloride 0.9% 100 ML IVPB SCH (12:15)
[2017-03-18] MEDS ORDERED: Vancomycin HCl 1.5 GM in Sodium Chloride 0.9% 250 ML 300 ML IVPB SCH (12:15)
[2017-03-18] MEDS ORDERED: Zolpidem Tartrate 5 MG TAB PO PRN (12:54)
[2017-03-18] MEDS ORDERED: Acetaminophen 325 MG TAB PO PRN (12:54)
[2017-03-18] MEDS ORDERED: diphenhydrAMINE 25 MG CAP PO PRN (12:54)
[2017-03-18] MEDS ORDERED: Promethazine HCl 25 MG/ML VIAL IM PRN (12:54)
[2017-03-18] MEDS ORDERED: Ondansetron HCl/PF 4 MG/2 ML Vial IVP PRN (12:54)
--- NOTE | 2017-03-18 13:21 | OP ---
PREOPERATIVE DIAGNOSES: Rupture of quadriceps and traumatic rupture of total knee incision. POSTOPERATIVE DIAGNOSES: Rupture of quadriceps and traumatic rupture of total knee incision. PROCEDURE: Irrigation and debridement of the left knee with revision of one portion total knee repla cement, size 11 x 3 tibial liner. SURGEON: Choco Chruch M.D. CARD WRITER HAND: Anthony Burgess PA-C. BLOOD LOSS: 200 mL SPECIMEN: Cultures were obtained before antibiotics were given. DRAINS: None. COMPLICATIONS: None. DESCRIPTION OF PROCEDURE: The patient was taken to the operating room where general anesthesia was i nduced. Left leg was prepped and draped in the usual sterile fashion. I did not use a tourniquet on this case. I opened up the skin incision. After the skin was opened, I could see that the quadrice ps tendon repair had ruptured, so the joint was exposed. I performed a complete synovectomy of the j oint. I removed the polyethylene liner and performed posterior synovectomy as well, removed all four materials consisting of sutures and all space including hematoma and nonviable synovium. The f luid was quite clear, did not see any signs of infection. Pulsatile lavage irrigation was used 5 lit ers of Betadine and 5 liters of clear. The retinaculum was repaired with #1 Vicryl for about 12 sutu res and then reinforced with #2 StrataFix, subcutaneous closed with 0 StrataFix, skin was closed with 0 Prolene, and a new polyethylene liner was left in the joint. Postoperative plan for this patient is to consult Dr. Sanchez. She will need 6 weeks of IV antibiotics . Cultures are pending at this time. I just started on vancomycin and Rocephin after cultures were obtained.
[2017-03-18] MEDS ORDERED: Lidocaine 1% PF 5 ML VIAL ONE (13:24)
[2017-03-18] MEDS ORDERED: PROPOFOL 200 MG/20 ML VIAL ONE (13:24)
[2017-03-18] MEDS ORDERED: Ondansetron HCl/PF 4 MG/2 ML Vial ONE (13:24)
[2017-03-18] MEDS ORDERED: Dexamethasone 20 MG/5 ML VIAL ONE (13:24)
[2017-03-18] MEDS ORDERED: HYDROmorphone 0.5 MG/0.5 ML SYRINGE ONE (14:45)
[2017-03-18] MEDS: Sodium Chloride 0.9% 1,000 ML IV SCH ×2 (16:18→20:15)
[2017-03-18] MEDS: Fentanyl 100 MCG/2 ML VIAL SLOW IVP PRN (16:23)
--- NOTE | 2017-03-18 19:10 | CON ---
DATE OF CONSULTATION: 03/18/2017 REASON FOR CONSULTATION: Left TKR disruption with concern for possible infection. HISTORY OF PRESENT ILLNESS: A 61-year-old female with history of type 2 diabetes, hyperlipidemia, hy pertension, hypothyroidism, and rheumatoid arthritis who underwent left knee replacement recently unf ortunately sustained a fall and disruption of the skin. The surgeon was not informed about this and now he had to take her in and do a washout. I did not have a chance of reviewing the operative proce dure. The note has not been transcribed yet. I spoke with Dr. Church and he did a liner exchange an d currently, Ms. Saab denies any headaches. No cough or sputum production. No chest pain. No abdo hank pain, mild pain at the operative site. Little bit drowsy from the anesthesia. PAST MEDICAL HISTORY: Hypertension, osteoarthritis, rheumatoid arthritis, hyperlipidemia, hypothyroi dism, type 2 diabetes. MEDICATIONS: Trazodone, vitamin D, Prozac, albuterol, Celebrex, levothyroxine, Januvia, cyclobenzapr ine, Cymbalta, Nasonex, Valium, glipizide, [place], triamterene, hydrochlorothiazide, and is on vancomy colleen and Rocephin. ALLERGIES: NORVASC, ZOCOR, LIPITOR, AMOXICILLIN, AND AZITHROMYCIN. FAMILY HISTORY: Noncontributory. PHYSICAL EXAMINATION: VITAL SIGNS: Temperature 98.7, blood pressure 140/70, pulse 78, respiratory rate 22. SKIN: Exam of the left knee operative site, peripheral IV access and a Patton catheter. HEENT: Ocular movements are conjugate. Oral cavity is unremarkable. NECK: Supple. LUNGS: With symmetric breath sounds with bilateral faint expiratory wheezing. HEART: S1, S2. Regular rate. No S3 or S4. ABDOMEN: Soft. Not distended or tender. No ascites. No bladder distention. EXTREMITIES: Limitation of movements in lower extremities associated with postop state plus the surg ical procedure. LABORATORY DATA: C-reactive 1.49. White cell count 10.6, hemoglobin 13.8, platelets 401. Chemistri es from 03/04/2017 with potassium 3.3, creatinine 0.7, glucose 230. Liver profile was normal. CRP w as 1.49 from last visit. Microbiology with pending cultures at this time. Gram stain with rare wbc' s, no organism seen. ASSESSMENT: 1. Rheumatoid arthritis. 2. Diabetes type 2. 3. Recent left total knee replacement with disruption following accidental fall, status post washout and liner exchange. DISCUSSION: The patient will continue on IV therapy and then we will follow up the culture results a nd adjust antimicrobials accordingly. PICC line placement. Disposition will probably be either reha bilitation transfer or home. She lives in [place]. I think she has a supportive family. The tone ent needs to strongly consider smoking cessation.
[2017-03-18] MEDS: Senokot S 8.6-50 MG TAB PO SCH (20:14)
[2017-03-18] MEDS: Aspirin 325 MG TAB PO SCH (20:14)
[2017-03-18] MEDS: HYDROcodone/Acetaminophen 10/325 mg Tablet PO PRN (20:14)
[2017-03-18] MEDS: Ferrous Gluconate 324 MG TAB PO SCH (20:15)
[2017-03-19] MEDS: Vancomycin HCl 1.5 GM in Sodium Chloride 0.9% 250 ML 300 ML IVPB SCH ×2 (01:05→14:22)
[2017-03-19] MEDS: HYDROcodone/Acetaminophen 10/325 mg Tablet PO PRN ×6 (01:44→23:07)
[2017-03-19] MEDS ORDERED: Dextrose 5% in Water 1,000 ML IV PRN (04:33)
[2017-03-19] MEDS ORDERED: Dextrose 50% Abboject 50 ML SYRINGE SLOW IVP PRN (04:33)
[2017-03-19] MEDS ORDERED: HumaLOG 300 UNITS/3 ML VIAL SC PRN (04:33)
--- NOTE | 2017-03-19 04:39 | PDOC.PN ---
- Subjective Encounter Start Date: 03/19/17 Encounter Start Time: 04:37 Pt seen for management of medical comorbidities, including diabetes mellitus. Reports pain in L knee, denies chest pain. Reports occasioanl SOBOE. - Objective MAR Reviewed: Yes Vital Signs & Weight: Vital Signs (12 hours) Temp Pulse Resp BP Pulse Ox 03/19/17 00:00 98.5 F 93 18 119/76 93 L 03/18/17 20:15 98.6 F 105 H 18 91 L 03/18/17 20:00 98.6 F 105 H 18 112/71 91 L Weight Weight 215 lb I&O: 03/17/17 03/18/17 03/19/17 06:59 06:59 06:59 Intake Total 610 Output Total 100 Balance 510 Result Diagrams: 03/18/17 10:04 Phys Exam - Physical Examination Obese HEENT: moist MMs, sclera anicteric Neck: supple Respiratory: clear to auscultation bilateral Cardiovascular: RRR Gastrointestinal: soft L knee in dressing Neurological: moves all 4 limbs Psychiatric: normal affect Skin: no rash Dx/Plan (1) DM2 (diabetes mellitus, type 2) Status: Chronic (2) Hypertension Code(s): I10 - ESSENTIAL (PRIMARY) HYPERTENSION Status: Chronic (3) Dyslipidemia Code(s): E78.5 - HYPERLIPIDEMIA, UNSPECIFIED Status: Chronic (4) Hypothyroidism Code(s): E03.9 - HYPOTHYROIDISM, UNSPECIFIED Status: Chronic (5) Obesity (BMI 30-39.9) Code(s): E66.9 - OBESITY, UNSPECIFIED Status: Chronic (6) Tobacco abuse Code(s): Z72.0 - TOBACCO USE Status: Chronic (7) Anxiety Code(s): F41.9 - ANXIETY DISORDER, UNSPECIFIED Status: Chronic - Plan * . Start accuchecks, insulin sliding scale. Monitor vital signs, titrarte antihypertensives as needed. PRN IV hydralazine for blood pressure spikes. Antibiotics as per ID service. Pt counseled re: tobacco cessation, start nicotine patch. DVT prophylaxis and pain management per orthopedic surgery service. Review of Systems - Review of Systems Respiratory: SOB with Excertion. negative: Cough, Dry, Shortness of Breath, Hemoptysis, Pleuritic Pain, Sputum, Wheezing Cardiovascular: negative: chest pain, palpitations, orthopnea, paroxysmal nocturnal dyspnea, edema, light headedness Musculoskeletal: Other (L knee pain) - Medications/Allergies Allergies/Adverse Reactions: Allergies Allergy/AdvReac Type Severity Reaction Status Date / Time amitriptyline Allergy Verified 03/17/17 14:29 amlodipine besylate Allergy Swollen Verified 03/17/17 14:29 [From [facility]] Lips amoxicillin Allergy Verified 03/17/17 14:29 atorvastatin Allergy Verified 03/17/17 14:29 azithromycin Allergy Verified 03/17/17 14:29 simvastatin Allergy Verified 03/17/17 14:29 tramadol Allergy makes me Verified 03/17/17 14:29 crazy Medications: Current Medications Acetaminophen (Tylenol) 650 mg PO Q4H PRN PRN Reason: RAMOS/ T > 101F; Mild Pain (1-3) Hydrocodone Bitart/Acetaminophen ([place] 10/325) 2 tab PO Q4H PRN PRN Reason: Severe Pain (7-10) Last Admin: 03/19/17 01:44 Dose: 2 tab Aspirin (Aspirin) 325 mg PO BID [facility] Last Admin: 03/18/17 20:14 Dose: 325 mg Dextrose/Water (Dextrose 50%) 25 gm SLOW IVP PRN PRN PRN Reason: Hypoglycemia Diphenhydramine HCl (Benadryl) 25 mg PO Q6H PRN PRN Reason: Itching Fentanyl (Sublimaze) 50 mcg SLOW IVP Q30MIN PRN PRN Reason: Moderate Pain (4-6) Fentanyl (Sublimaze) 100 mcg SLOW IVP Q1H PRN PRN Reason: Severe Pain (7-10) Last Admin: 03/18/17 16:23 Dose: 100 mcg Ferrous Gluconate (Fergon) 324 mg PO BID [facility] Last Admin: 03/18/17 20:15 Dose: 324 mg Glucagon (Glucagon) 1 mg IM PRN PRN PRN Reason: Hypoglycemia Ceftriaxone Sodium 2 gm/ (Sodium Chloride) 100 mls @ 200 mls/hr IVPB 1300 [place] Sodium Chloride (Normal Saline 0.9%) 1,000 mls @ 100 mls/hr IV .Q10H [facility] Last Admin: 03/18/17 20:15 Dose: 1,000 mls Vancomycin HCl 1.5 gm/ Sodium (Chloride) 300 mls @ 200 mls/hr IVPB 0200,1400 [facility] Last Admin: 03/19/17 01:05 Dose: 300 mls Dextrose/Water (D5w) 1,000 mls @ 0 mls/hr IV .Q0M PRN; As Directed PRN Reason: Hypoglycemia Insulin Human Lispro (Humalog) 0 units SC .MILD SLIDING SCALE PRN PRN Reason: Mild Correctional Scale Iron/Minerals/Multivitamins (Theragran M) 1 tab PO DAILY [place] Ondansetron HCl (Zofran) 4 mg IVP Q6H PRN PRN Reason: Nausea/Vomiting Promethazine HCl (Phenergan) 12.5 mg IM Q4H PRN PRN Reason: Nausea/Vomiting Senna/Docusate Sodium (Senokot S) 2 tab PO BID [facility] Last Admin: 03/18/17 20:14 Dose: 2 tab Sodium Chloride (Flush - Normal Saline) 10 ml IVF PRN PRN PRN Reason: Saline Flush Zolpidem Tartrate (Ambien) 5 mg PO HSPRN PRN PRN Reason: Insomnia
[2017-03-19] MEDS: Levothyroxine Sodium 75 MCG TAB PO SCH (05:44)
[2017-03-19 06:34] LABS: Hemoglobin 12.2 g/dL (12.0-16.0); Mean Corpuscular HGB CONC 32.5 g/dL (32.0-36.0); Mean Corpuscular Hemoglobin 35.1 pg (27.0-31.0); Mean Platelet Volume 6.5 fL (7.4-10.4); Platelet Count 391 thou/uL (130-400); Red Blood Cell (RBC) Count 3.47 mill/uL (4.20-5.40); White Blood Cell (WBC) Count 11.9 thou/uL (4.8-10.8)
[2017-03-19 06:38] LABS: INR-International Normal Ratio 1.2; Prothrombin Time 15.2 SEC (12.0-14.7)
[2017-03-19 06:57] LABS: Anion Gap 9 mmol/L (10-20); BUN (Urea Nitrogen) 16 mg/dL (9.8-20.1); Calc. Creatinine Clearance 112 mL/min (70-130); Calcium 8.6 mg/dL (7.8-10.44); Carbon Dioxide 27 mmol/L (23-31); Chloride 104 mmol/L (98-107); Estimated GFR-MDRD 89; Glucose 190 mg/dL (80-115); Potassium 4.3 mmol/L (3.5-5.1); Sodium 136 mmol/L (136-145)
[2017-03-19] MEDS: Ferrous Gluconate 324 MG TAB PO SCH ×2 (08:25→20:14)
[2017-03-19] MEDS: Multivitamin W/ Minerals 1 TAB PO SCH (08:26)
[2017-03-19] MEDS: Nicotine 21 MG PATCH TD SCH (08:26)
[2017-03-19] MEDS: Aspirin 325 MG TAB PO SCH ×2 (08:26→20:14)
[2017-03-19] MEDS: Senokot S 8.6-50 MG TAB PO SCH ×2 (08:26→20:14)
[2017-03-19] MEDS: Fentanyl 100 MCG/2 ML VIAL SLOW IVP PRN ×6 (08:49→22:17)
[2017-03-19] MEDS: Sodium Chloride 0.9% 1,000 ML IV SCH ×2 (08:49→20:26)
[2017-03-19] MEDS ORDERED: Ergocalciferol 1.25 MG(50,000 UNITS) CAP PO SCH (09:00)
[2017-03-19] MEDS: cefTRIAXone\\ROCEPHIN 2 GM in Sodium Chloride 0.9% 100 ML IVPB SCH (12:06)
[2017-03-19] MEDS: Mometasone/Formoterol 120 PUFF INHALER INH SCH ×2 (13:04→19:47)
--- NOTE | 2017-03-19 13:42 | SPC ---
RIGHT UPPER EXTREMITY PICC LINE ULTRASOUND AND FLUOROSCOPIC GUIDANCE: Fluoroscopy time: Zero minutes. Dose: 109 mGy*cm2. PROCEDURE: After informed consent had been obtained, the patient was placed on the interventional suite table in a supine position. The right upper arm was prepped and draped in a standard sterile fashion. Topic al anesthesia was achieved utilizing 1% Lidocaine and sodium bicarbonate. Under real-time sonography , the basilic vein of the right upper extremity was accessed with a small caliber needle with venous flash present at the needle hub. A guidewire was then advanced in to the needle, and under real-time fluoroscopy, the guidewire was advanced to the level of the inferior vena cava to confirm appropriat e venous placement. A small skin incision was made and the needle was removed. Over the guidewire, a single lumen PICC line was cut to 42 cm. The PICC line was advanced under real-time fluoroscopy ov er the guidewire to the level of the cavoatrial junction. The guidewire and peelaway sheath were the n removed. PICC line flushed and aspirated appropriately and was secured to the right upper extremit y. There were no procedural complications. IMPRESSION: Technically successful ultrasound and fluoroscopic-guided right upper extremity peripherally inserted central catheter line placement, as above. POS: [facility]
[2017-03-19] MEDS ORDERED: Heparin 1,000 UNITS/ML VIAL ONE (15:21)
[2017-03-19] MEDS ORDERED: Pregabalin 75 MG CAP PO SCH (20:45)
[2017-03-20] MEDS: Vancomycin HCl 1.5 GM in Sodium Chloride 0.9% 250 ML 300 ML IVPB SCH ×2 (01:12→15:03)
[2017-03-20] MEDS: Fentanyl 100 MCG/2 ML VIAL SLOW IVP PRN ×2 (02:26→17:02)
[2017-03-20] MEDS: HYDROcodone/Acetaminophen 10/325 mg Tablet PO PRN ×5 (03:53→21:33)
[2017-03-20] MEDS: Sodium Chloride 0.9% 1,000 ML IV SCH ×2 (03:53→17:48)
[2017-03-20] MEDS: Levothyroxine Sodium 75 MCG TAB PO SCH (05:46)
[2017-03-20 06:37] LABS: Hemoglobin 12.1 g/dL (12.0-16.0); Mean Corpuscular HGB CONC 31.7 g/dL (32.0-36.0); Mean Corpuscular Hemoglobin 34.2 pg (27.0-31.0); Mean Platelet Volume 6.7 fL (7.4-10.4); Platelet Count 365 thou/uL (130-400); RBC Distribution Width 14.2 % (11.5-14.5); Red Blood Cell (RBC) Count 3.53 mill/uL (4.20-5.40); White Blood Cell (WBC) Count 11.3 thou/uL (4.8-10.8)
[2017-03-20] MEDS ORDERED: HYDROcodone/Acetaminophen 10/325 mg Tablet PO PRN (08:11)
[2017-03-20] MEDS: ALPRAZolam 0.5 MG TAB PO PRN ×2 (08:33→18:55)
[2017-03-20] MEDS: Nicotine 21 MG PATCH TD SCH (08:33)
[2017-03-20] MEDS: Losartan 25 MG TAB PO SCH (08:33)
[2017-03-20] MEDS: Aspirin 325 MG TAB PO SCH ×2 (08:33→21:29)
[2017-03-20] MEDS: Ferrous Gluconate 324 MG TAB PO SCH ×2 (08:34→21:29)
[2017-03-20] MEDS: Alogliptin 25 MG TAB PO SCH (08:34)
[2017-03-20] MEDS: Pregabalin 75 MG CAP PO SCH ×2 (08:34→21:30)
[2017-03-20] MEDS: Triamterene/Hydrochlorothiazide 37.5 mg/25 mg Tablet PO SCH (08:34)
[2017-03-20] MEDS: Cyclobenzaprine 10 MG TAB PO PRN ×2 (08:34→18:56)
[2017-03-20] MEDS: Multivitamin W/ Minerals 1 TAB PO SCH (08:34)
[2017-03-20] MEDS ORDERED: CELECOXIB 50 MG PO SCH (09:00)
[2017-03-20] MEDS: Senokot S 8.6-50 MG TAB PO SCH ×2 (09:16→21:30)
[2017-03-20] MEDS: CeleCOXIB 100 MG CAP PO SCH ×2 (09:46→21:29)
[2017-03-20 13:16] LABS: Vancomycin, Trough 22.7 ug/mL
[2017-03-20] MEDS: cefTRIAXone\\ROCEPHIN 2 GM in Sodium Chloride 0.9% 100 ML IVPB SCH (13:59)
--- NOTE | 2017-03-20 14:17 | PDOC.PN ---
- Subjective Encounter Start Date: 03/20/17 Encounter Start Time: 11:20 Pt seen and examined, chart reviewed in its entirety, this is my first visit with this patient. S/P Left TKA revision for presumed infection, on Vanc and rocephin post op. No F/c, no CP or sOB, no N/V/D/C, no hematuria. sykes in place Cultures with rare growth today, no mention of morphology. 10 point ROS performed and neg for all systems except as per HPI - Objective MAR Reviewed: Yes Vital Signs & Weight: Vital Signs (12 hours) Temp Pulse Resp BP Pulse Ox 03/20/17 12:34 97.3 F L 85 16 162/95 H 95 03/20/17 09:03 97.6 F 87 20 150/90 H 95 03/20/17 08:45 97.6 F 87 20 95 03/20/17 04:38 85 20 145/95 H 95 Weight Admit Weight 215 lb Weight 215 lb I&O: 03/19/17 03/20/17 03/21/17 06:59 06:59 06:59 Intake Total 610 1400 Output Total 600 750 Balance 10 650 Result Diagrams: 03/20/17 06:05 03/19/17 06:16 Additional Labs: Accuchecks 03/20/17 03/20/17 03/19/17 11:24 05:59 19:43 POC Glucose 82 110 144 H 03/19/17 16:20 POC Glucose 139 H Radiology Reviewed by me: Yes EKG Reviewed by me: Yes Phys Exam - Physical Examination Constitutional: NAD HEENT: PERRLA, moist MMs, sclera anicteric, oral pharynx no lesions Neck: no nodes, no JVD, supple, full ROM Respiratory: no wheezing, no rales, no rhonchi, clear to auscultation bilateral Cardiovascular: RRR, no significant murmur, no rub Gastrointestinal: soft, non-tender, no distention, positive bowel sounds Musculoskeletal: pulses present, edema present left leg in striaght leg brace, post op dressing in place not removed Neurological: non-focal, normal sensation, moves all 4 limbs Lymphatic: no nodes Psychiatric: normal affect, A&O x 3 Skin: no rash, normal turgor, cap refill <2 seconds Dx/Plan - Plan cont current plan of care, continue antibiotics, PT/OT, licensed social worker, respiratory therapy, out of bed/ambulate * .
[2017-03-20] MEDS: Mometasone/Formoterol 120 PUFF INHALER INH SCH ×2 (15:38→19:08)
[2017-03-20] MEDS: Rosuvastatin 10 MG TAB PO SCH (21:30)
[2017-03-21] MEDS: Fentanyl 100 MCG/2 ML VIAL SLOW IVP PRN (00:49)
[2017-03-21] MEDS: Sodium Chloride 0.9% 1,000 ML IV SCH ×3 (00:50→17:34)
[2017-03-21] MEDS: Vancomycin HCl 1.5 GM in Sodium Chloride 0.9% 250 ML 300 ML IVPB SCH ×2 (01:30→13:41)
[2017-03-21] MEDS: HYDROcodone/Acetaminophen 10/325 mg Tablet PO PRN ×4 (03:11→21:58)
[2017-03-21] MEDS: ALPRAZolam 0.5 MG TAB PO PRN (03:12)
[2017-03-21] MEDS: Levothyroxine Sodium 75 MCG TAB PO SCH (06:43)
[2017-03-21] MEDS: Cyclobenzaprine 10 MG TAB PO PRN ×2 (06:46→17:34)
[2017-03-21 07:08] LABS: Hemoglobin 11.6 g/dL (12.0-16.0); Mean Corpuscular HGB CONC 32.2 g/dL (32.0-36.0); Mean Corpuscular Hemoglobin 34.7 pg (27.0-31.0); Mean Platelet Volume 6.1 fL (7.4-10.4); Platelet Count 344 thou/uL (130-400); Red Blood Cell (RBC) Count 3.35 mill/uL (4.20-5.40); White Blood Cell (WBC) Count 10.2 thou/uL (4.8-10.8)
[2017-03-21] MEDS: glipiZIDE 5 MG TAB PO SCH (08:26)
[2017-03-21] MEDS: Alogliptin 25 MG TAB PO SCH (08:27)
[2017-03-21] MEDS: CeleCOXIB 100 MG CAP PO SCH ×2 (08:27→21:52)
[2017-03-21] MEDS: Aspirin 325 MG TAB PO SCH ×2 (08:27→21:52)
[2017-03-21] MEDS: Ferrous Gluconate 324 MG TAB PO SCH ×2 (08:28→21:52)
[2017-03-21] MEDS: Multivitamin W/ Minerals 1 TAB PO SCH (08:28)
[2017-03-21] MEDS: Losartan 25 MG TAB PO SCH (08:28)
[2017-03-21] MEDS: Senokot S 8.6-50 MG TAB PO SCH ×2 (08:29→21:51)
[2017-03-21] MEDS: Triamterene/Hydrochlorothiazide 37.5 mg/25 mg Tablet PO SCH (08:29)
[2017-03-21] MEDS: Pregabalin 75 MG CAP PO SCH ×2 (08:29→21:53)
[2017-03-21] MEDS: Mometasone/Formoterol 120 PUFF INHALER INH SCH ×2 (08:32→19:15)
[2017-03-21] MEDS: Nicotine 21 MG PATCH TD SCH (08:36)
[2017-03-21] MEDS: cefTRIAXone\\ROCEPHIN 2 GM in Sodium Chloride 0.9% 100 ML IVPB SCH (13:37)
--- NOTE | 2017-03-21 14:07 | PDOC.PN ---
- Subjective Encounter Start Date: 03/21/17 Encounter Start Time: 10:20 no acute events, no new complaints, left leg aching from not being able ot bend. No F/c, no N/V/D/c, no CP or sOB. anxious earlier this AM, got ativan, better. No acute events overnight 10 point ROS performed and neg for all systems except as above - Objective MAR Reviewed: Yes Vital Signs & Weight: Vital Signs (12 hours) Temp Pulse Resp BP Pulse Ox 03/21/17 12:00 97.9 F 93 16 156/94 H 92 L 03/21/17 08:00 97.8 F 85 20 158/96 H 91 L 03/21/17 07:30 97.8 F 85 20 03/21/17 04:00 97.8 F 85 18 151/88 H 98 Weight Admit Weight 215 lb Weight 215 lb I&O: 03/20/17 03/21/17 03/22/17 06:59 06:59 06:59 Intake Total 1400 2102 1320 Output Total 750 6450 2400 Balance 106 -9413 -9051 Result Diagrams: 03/21/17 06:55 03/19/17 06:16 Additional Labs: Accuchecks 03/21/17 03/21/17 03/20/17 11:11 06:26 20:52 POC Glucose 119 H 111 H 166 H 03/20/17 16:50 POC Glucose 101 Phys Exam - Physical Examination Constitutional: NAD HEENT: PERRLA, moist MMs, sclera anicteric, oral pharynx no lesions Neck: no nodes, no JVD, supple, full ROM Respiratory: no wheezing, no rales, no rhonchi, clear to auscultation bilateral Cardiovascular: RRR, no significant murmur, no rub Gastrointestinal: soft, non-tender, no distention, positive bowel sounds Musculoskeletal: pulses present, edema present Neurological: non-focal, normal sensation, moves all 4 limbs Lymphatic: no nodes Psychiatric: normal affect, A&O x 3 Skin: no rash, normal turgor, cap refill <2 seconds Dx/Plan (1) Infected prosthetic knee joint Code(s): T84.59XA - INFECT/INFLM REACTION DUE TO OTH INTERNAL JOINT PROSTH, INIT ; Z96.659 - PRESENCE OF UNSPECIFIED ARTIFICIAL KNEE JOINT Status: Acute Qualifiers: Encounter type: initial encounter Qualified Code(s): T84.59XA - Infection and inflammatory reaction due to other internal joint prosthesis, initial encounter; Z96.659 - Presence of unspecified artificial knee joint; Z96.659 - Presence of unspecified artificial knee joint Comment: presumed. culture with mixed skin elo. broth cloudy, subbed out. On Vanc and rocephin. CCM, follow up cultures, ID on the case (2) DM2 (diabetes mellitus, type 2) Status: Chronic Qualifiers: Diabetes mellitus complication status: without complication Diabetes mellitus marine oil terminal superintendent insulin use: with halfway use Qualified Code(s): E11.9 - Type 2 diabetes mellitus without complications; Z79.4 - FDC (current) use of insulin; Z79.4 - FDC (current) use of insulin; Z79.4 - computer terminal operator ( current) use of insulin; Z79.4 - computer terminal operator (current) use of insulin (3) S/P lumbar fusion Code(s): Z98.1 - ARTHRODESIS STATUS Status: Acute (4) Status post total right knee replacement Code(s): Z96.651 - PRESENCE OF RIGHT ARTIFICIAL KNEE JOINT Status: Chronic (5) Anxiety Code(s): F41.9 - ANXIETY DISORDER, UNSPECIFIED Status: Chronic (6) Dyslipidemia Code(s): E78.5 - HYPERLIPIDEMIA, UNSPECIFIED Status: Chronic (7) Hypertension Code(s): I10 - ESSENTIAL (PRIMARY) HYPERTENSION Status: Chronic Qualifiers: Hypertension type: essential hypertension Qualified Code(s): I10 - Essential (primary) hypertension (8) Hypothyroidism Code(s): E03.9 - HYPOTHYROIDISM, UNSPECIFIED Status: Chronic Qualifiers: Hypothyroidism type: acquired Qualified Code(s): E03.9 - Hypothyroidism, unspecified (9) Obesity (BMI 30-39.9) Code(s): E66.9 - OBESITY, UNSPECIFIED Status: Chronic - Plan cont current plan of care, continue antibiotics, PT/OT * .
[2017-03-21] MEDS: Rosuvastatin 10 MG TAB PO SCH (21:51)
[2017-03-22] MEDS: Vancomycin HCl 1.5 GM in Sodium Chloride 0.9% 250 ML 300 ML IVPB SCH ×2 (02:33→14:39)
[2017-03-22] MEDS: HYDROcodone/Acetaminophen 10/325 mg Tablet PO PRN ×4 (05:42→23:05)
[2017-03-22] MEDS: Levothyroxine Sodium 75 MCG TAB PO SCH (05:44)
[2017-03-22 05:48] LABS: Hemoglobin 11.6 g/dL (12.0-16.0); Mean Corpuscular HGB CONC 32.6 g/dL (32.0-36.0); Mean Corpuscular Hemoglobin 34.8 pg (27.0-31.0); Mean Platelet Volume 6.8 fL (7.4-10.4); Platelet Count 355 thou/uL (130-400); Red Blood Cell (RBC) Count 3.34 mill/uL (4.20-5.40); White Blood Cell (WBC) Count 9.6 thou/uL (4.8-10.8)
[2017-03-22] MEDS: Mometasone/Formoterol 120 PUFF INHALER INH SCH ×2 (07:48→20:20)
[2017-03-22] MEDS: Nicotine 21 MG PATCH TD SCH (07:56)
[2017-03-22] MEDS: Aspirin 325 MG TAB PO SCH ×2 (07:57→22:13)
[2017-03-22] MEDS: Losartan 25 MG TAB PO SCH (07:57)
[2017-03-22] MEDS: Pregabalin 75 MG CAP PO SCH ×2 (07:58→22:11)
[2017-03-22] MEDS: glipiZIDE 5 MG TAB PO SCH (07:58)
[2017-03-22] MEDS: Multivitamin W/ Minerals 1 TAB PO SCH (07:58)
[2017-03-22] MEDS: CeleCOXIB 100 MG CAP PO SCH ×2 (07:58→22:11)
[2017-03-22] MEDS: Ferrous Gluconate 324 MG TAB PO SCH ×2 (07:58→22:12)
[2017-03-22] MEDS: Alogliptin 25 MG TAB PO SCH (07:58)
[2017-03-22] MEDS: Triamterene/Hydrochlorothiazide 37.5 mg/25 mg Tablet PO SCH (07:58)
[2017-03-22] MEDS: Senokot S 8.6-50 MG TAB PO SCH ×2 (07:59→22:12)
--- NOTE | 2017-03-22 12:39 | PDOC.PN ---
- Subjective Encounter Start Date: 03/22/17 Encounter Start Time: 11:00 Pt just transferred herself back to bed alone. SOB, but no CP, some knee pain, straight-leg brace on. No f/C, no N/V/D/C, no CP or orthopnea. vikas abx without itching or rash 10 point ROS performed and neg for all systems except as above - Objective MAR Reviewed: Yes Vital Signs & Weight: Vital Signs (12 hours) Temp Pulse Resp BP Pulse Ox 03/22/17 11:32 97.8 F 89 16 159/96 H 92 L 03/22/17 08:25 97.9 F 79 15 93 L 03/22/17 07:55 97.9 F 79 15 148/88 H 93 L Weight Admit Weight 215 lb Weight 215 lb I&O: 03/21/17 03/22/17 03/23/17 06:59 06:59 06:59 Intake Total 2102 2601 Output Total 6450 2400 Balance -4348 201 Result Diagrams: 03/22/17 05:15 03/19/17 06:16 Additional Labs: Accuchecks 03/22/17 03/22/17 03/21/17 10:37 05:47 19:40 POC Glucose 107 117 H 151 H 03/21/17 17:14 POC Glucose 133 H Phys Exam - Physical Examination Constitutional: NAD HEENT: PERRLA, moist MMs, sclera anicteric, oral pharynx no lesions Neck: no nodes, no JVD, supple, full ROM Respiratory: no wheezing, no rales, no rhonchi, clear to auscultation bilateral Cardiovascular: RRR, no significant murmur, no rub Gastrointestinal: soft, non-tender, no distention, positive bowel sounds Musculoskeletal: no edema, pulses present Neurological: non-focal, normal sensation, moves all 4 limbs Lymphatic: no nodes Psychiatric: normal affect, A&O x 3 Skin: no rash, normal turgor, cap refill <2 seconds Dx/Plan (1) Infected prosthetic knee joint Code(s): T84.59XA - INFECT/INFLM REACTION DUE TO OTH INTERNAL JOINT PROSTH, INIT ; Z96.659 - PRESENCE OF UNSPECIFIED ARTIFICIAL KNEE JOINT Status: Acute Qualifiers: Encounter type: initial encounter Qualified Code(s): T84.59XA - Infection and inflammatory reaction due to other internal joint prosthesis, initial encounter; Z96.659 - Presence of unspecified artificial knee joint; Z96.659 - Presence of unspecified artificial knee joint Comment: presumed. culture with mixed skin elo. broth cloudy, subbed out. On Vanc and rocephin. CCM, follow up cultures, ID on the case (2) DM2 (diabetes mellitus, type 2) Status: Chronic Qualifiers: Diabetes mellitus complication status: without complication Diabetes mellitus shelter insulin use: with lapel padder use Qualified Code(s): E11.9 - Type 2 diabetes mellitus without complications; Z79.4 - e commerce director (current) use of insulin; Z79.4 - nursing home (current) use of insulin; Z79.4 - nursing home ( current) use of insulin; Z79.4 - nursing home (current) use of insulin (3) S/P lumbar fusion Code(s): Z98.1 - ARTHRODESIS STATUS Status: Acute (4) Status post total right knee replacement Code(s): Z96.651 - PRESENCE OF RIGHT ARTIFICIAL KNEE JOINT Status: Chronic (5) Anxiety Code(s): F41.9 - ANXIETY DISORDER, UNSPECIFIED Status: Chronic (6) Dyslipidemia Code(s): E78.5 - HYPERLIPIDEMIA, UNSPECIFIED Status: Chronic (7) Hypertension Code(s): I10 - ESSENTIAL (PRIMARY) HYPERTENSION Status: Chronic Qualifiers: Hypertension type: essential hypertension Qualified Code(s): I10 - Essential (primary) hypertension (8) Hypothyroidism Code(s): E03.9 - HYPOTHYROIDISM, UNSPECIFIED Status: Chronic Qualifiers: Hypothyroidism type: acquired Qualified Code(s): E03.9 - Hypothyroidism, unspecified (9) Obesity (BMI 30-39.9) Code(s): E66.9 - OBESITY, UNSPECIFIED Status: Chronic - Plan * .
[2017-03-22] MEDS: cefTRIAXone\\ROCEPHIN 2 GM in Sodium Chloride 0.9% 100 ML IVPB SCH (13:20)
[2017-03-22 13:36] LABS: Vancomycin, Trough 26.5 ug/mL
--- NOTE | 2017-03-22 16:29 | RAD ---
PA AND LATERAL CHEST 03/22/17 HISTORY: Decreased oxygen saturation. COMPARISON: 03/04/17. FINDINGS: The cardiac silhouette remains enlarged. The pulmonary vasculature is within normal limits. Minimal l inear density seen in the left mid lung zone, but this is a stable finding and may be related to mild chronic lung changes and superimposition of structures. The lungs are otherwise clear. Right sided P ICC line is noted in place with tip overlying the SVC. Vascular calcifications seen in the thoracic a gaurang. IMPRESSION: Cardiomegaly without evidence of an acute cardiopulmonary process. POS: [facility]
[2017-03-22] MEDS: Rosuvastatin 10 MG TAB PO SCH (22:11)
[2017-03-23] MEDS: Vancomycin HCl 1.5 GM in Sodium Chloride 0.9% 250 ML 300 ML IVPB SCH ×2 (03:32→12:08)
[2017-03-23 05:41] LABS: Hemoglobin 11.2 g/dL (12.0-16.0); Mean Corpuscular HGB CONC 30.8 g/dL (32.0-36.0); Mean Corpuscular Hemoglobin 33.1 pg (27.0-31.0); Mean Platelet Volume 6.6 fL (7.4-10.4); Platelet Count 355 thou/uL (130-400); RBC Distribution Width 13.6 % (11.5-14.5); Red Blood Cell (RBC) Count 3.39 mill/uL (4.20-5.40); White Blood Cell (WBC) Count 9.2 thou/uL (4.8-10.8)
[2017-03-23] MEDS: Levothyroxine Sodium 75 MCG TAB PO SCH (06:58)
[2017-03-23] MEDS: Pregabalin 75 MG CAP PO SCH ×2 (07:41→20:52)
[2017-03-23] MEDS: Multivitamin W/ Minerals 1 TAB PO SCH (07:42)
[2017-03-23] MEDS: Aspirin 325 MG TAB PO SCH ×2 (07:42→20:51)
[2017-03-23] MEDS: Losartan 25 MG TAB PO SCH (07:42)
[2017-03-23] MEDS: Triamterene/Hydrochlorothiazide 37.5 mg/25 mg Tablet PO SCH (07:42)
[2017-03-23] MEDS: Alogliptin 25 MG TAB PO SCH (07:42)
[2017-03-23] MEDS: Nicotine 21 MG PATCH TD SCH (07:43)
[2017-03-23] MEDS: glipiZIDE 5 MG TAB PO SCH (07:43)
[2017-03-23] MEDS: Ferrous Gluconate 324 MG TAB PO SCH ×2 (07:43→20:52)
[2017-03-23] MEDS: Senokot S 8.6-50 MG TAB PO SCH ×2 (07:43→20:53)
[2017-03-23] MEDS: CeleCOXIB 100 MG CAP PO SCH ×2 (07:43→20:51)
[2017-03-23] MEDS ORDERED: ISOVUE-370 76%-LOCM 1 ML ONE ×2 (09:58→09:59)
[2017-03-23] MEDS: Mometasone/Formoterol 120 PUFF INHALER INH SCH ×2 (10:01→19:25)
[2017-03-23] MEDS: ALPRAZolam 0.5 MG TAB PO PRN (12:07)
[2017-03-23] MEDS: cefTRIAXone\\ROCEPHIN 2 GM in Sodium Chloride 0.9% 100 ML IVPB SCH ×2 (12:07→18:40)
[2017-03-23] MEDS: HYDROcodone/Acetaminophen 10/325 mg Tablet PO PRN ×2 (12:29→18:27)
[2017-03-23 14:36] LABS: Actual Bicarbonate (HCO3a) 27.2 mEq/L (22-26); Base Excess (BEa) 2.2 mEq/L (0 (+/-) 2.5); CO2 Tension 43.9 mmHg (35.0-45.0); Calcium, Ionized 1.2 mmol/L (1.12-1.30); Hematocrit-ABG 39.2 % (36.0-47.0); Hemoglobin (Hb) 12.2 g/dL (12.0-16.0); pH, Arterial 7.41 (7.35-7.45)
[2017-03-23 14:38] LABS: O2 Tension (PaO2) 48.5 mmHg (80.0-100.0)
[2017-03-23 14:39] LABS: ALV-art Gradient 45.935 (0-20); Puncture Site RBRACH
--- NOTE | 2017-03-23 16:06 | PDOC.PN ---
- Subjective Encounter Start Date: 03/23/17 Encounter Start Time: 09:50 Pt denies any complaints, but does admit to SOB, no ches tpain. no N/V/D/C. doenst like her accuchecks, sugars have been pretty good. Pt hypoxic, mid 80s on RA 10 point ROS performed and neg for all systems except as above. - Objective MAR Reviewed: Yes Vital Signs & Weight: Vital Signs (12 hours) Temp Pulse Resp BP Pulse Ox 03/23/17 12:05 98.0 F 100 18 132/87 92 L 03/23/17 08:40 98.7 F 104 H 20 92 L 03/23/17 08:05 98.7 F 104 H 20 154/95 H 87 L Weight Admit Weight 215 lb Weight 215 lb I&O: 03/22/17 03/23/17 03/24/17 06:59 06:59 06:59 Intake Total 2601 2020 Output Total 2400 Balance 201 2020 Result Diagrams: 03/23/17 04:55 03/19/17 06:16 Additional Labs: Accuchecks 03/23/17 03/22/17 05:53 19:18 POC Glucose 97 123 H Radiology Reviewed by me: Yes EKG Reviewed by me: Yes Phys Exam - Physical Examination Constitutional: NAD HEENT: PERRLA, moist MMs, sclera anicteric, oral pharynx no lesions Neck: no nodes, no JVD, supple, full ROM Respiratory: no wheezing, no rales, no rhonchi, clear to auscultation bilateral Cardiovascular: no significant murmur, no rub regular, tachy Gastrointestinal: soft, non-tender, no distention, positive bowel sounds Musculoskeletal: pulses present, edema present Neurological: non-focal, normal sensation, moves all 4 limbs Lymphatic: no nodes Psychiatric: normal affect, A&O x 3 Skin: no rash, normal turgor, cap refill <2 seconds Dx/Plan (1) Infected prosthetic knee joint Code(s): T84.59XA - INFECT/INFLM REACTION DUE TO OTH INTERNAL JOINT PROSTH, INIT ; Z96.659 - PRESENCE OF UNSPECIFIED ARTIFICIAL KNEE JOINT Status: Acute Qualifiers: Encounter type: initial encounter Qualified Code(s): T84.59XA - Infection and inflammatory reaction due to other internal joint prosthesis, initial encounter; Z96.659 - Presence of unspecified artificial knee joint; Z96.659 - Presence of unspecified artificial knee joint Comment: presumed. culture with mixed skin elo. broth cloudy, subbed out. On Vanc and rocephin. CCM, follow up cultures, ID on the case (2) DM2 (diabetes mellitus, type 2) Status: Chronic Qualifiers: Diabetes mellitus complication status: without complication Diabetes mellitus care home insulin use: with ground support equipment mechanic use Qualified Code(s): E11.9 - Type 2 diabetes mellitus without complications; Z79.4 - purchasing clerk (current) use of insulin; Z79.4 - nursing home (current) use of insulin; Z79.4 - nursing home ( current) use of insulin; Z79.4 - nursing home (current) use of insulin (3) S/P lumbar fusion Code(s): Z98.1 - ARTHRODESIS STATUS Status: Acute (4) Status post total right knee replacement Code(s): Z96.651 - PRESENCE OF RIGHT ARTIFICIAL KNEE JOINT Status: Chronic (5) Anxiety Code(s): F41.9 - ANXIETY DISORDER, UNSPECIFIED Status: Chronic (6) Dyslipidemia Code(s): E78.5 - HYPERLIPIDEMIA, UNSPECIFIED Status: Chronic (7) Hypertension Code(s): I10 - ESSENTIAL (PRIMARY) HYPERTENSION Status: Chronic Qualifiers: Hypertension type: essential hypertension Qualified Code(s): I10 - Essential (primary) hypertension (8) Hypothyroidism Code(s): E03.9 - HYPOTHYROIDISM, UNSPECIFIED Status: Chronic Qualifiers: Hypothyroidism type: acquired Qualified Code(s): E03.9 - Hypothyroidism, unspecified (9) Obesity (BMI 30-39.9) Code(s): E66.9 - OBESITY, UNSPECIFIED Status: Chronic (10) Hypoxemia Code(s): R09.02 - HYPOXEMIA Status: Acute (11) Hypoxemia requiring supplemental oxygen Code(s): R09.02 - HYPOXEMIA; Z99.81 - DEPENDENCE ON SUPPLEMENTAL OXYGEN Status : Acute Comment: py hypoxic and tachy, ABG confirmed RA hypoxia, with increased A-a gradient. Will get CT angio to R/O PE. DDimer useless in this post op patient. - Plan cont current plan of care, continue antibiotics, PT/OT, respiratory therapy * .
[2017-03-23] MEDS ORDERED: Albuterol Sulfate 2.5 mg/3 ml Neb NEB PRN (16:10)
[2017-03-23] MEDS ORDERED: Furosemide 40 MG/4 ML VIAL SLOW IVP SCH (16:15)
--- NOTE | 2017-03-23 16:20 | CT ---
CT ARTERIOGRAM CHEST WITH IV CONTRAST AND 3D MIP IMAGIN03/23/17 HISTORY: Tachypnea. Dyspnea. Recent surgery. COMPARISON: 07/04/16. FINDINGS: There is good contrast opacification of the pulmonary arteries and aortic arch with bovine origin of the great vessels. Mild arterial calcification is apparent. Pericardial fluid has increased slightly . No lobar consolidation is apparent. Pulmonary hyperinflation with scattered emphysematous changes a re again demonstrated. Scattered nonspecific lymph nodes throughout the mediastinum measure up to 1.7 cm greatest diameter. IMPRESSION: 1. No CT evidence of pulmonary embolus. 2. COPD. 3. Slight interval enlargement of the pericardial effusion. POS: [facility]
[2017-03-23] MEDS: Rosuvastatin 10 MG TAB PO SCH (20:52)
[2017-03-24] MEDS ORDERED: Vancomycin HCl 1.5 GM in Sodium Chloride 0.9% 250 ML 300 ML IVPB SCH ×2 (02:00→06:00)
[2017-03-24] MEDS: HYDROcodone/Acetaminophen 10/325 mg Tablet PO PRN ×4 (03:04→16:46)
[2017-03-24] MEDS: Levothyroxine Sodium 75 MCG TAB PO SCH (05:28)
[2017-03-24 06:02] LABS: Mean Corpuscular HGB CONC 31.9 g/dL (32.0-36.0); Mean Corpuscular Hemoglobin 34.2 pg (27.0-31.0); Mean Platelet Volume 6.5 fL (7.4-10.4); Platelet Count 337 thou/uL (130-400); RBC Distribution Width 13.6 % (11.5-14.5); Red Blood Cell (RBC) Count 3.22 mill/uL (4.20-5.40)
[2017-03-24] MEDS: glipiZIDE 5 MG TAB PO SCH (07:33)
[2017-03-24] MEDS: Mometasone/Formoterol 120 PUFF INHALER INH SCH (08:00)
[2017-03-24] MEDS: Pregabalin 75 MG CAP PO SCH (08:34)
[2017-03-24] MEDS: Senokot S 8.6-50 MG TAB PO SCH (08:34)
[2017-03-24] MEDS: Triamterene/Hydrochlorothiazide 37.5 mg/25 mg Tablet PO SCH (08:35)
[2017-03-24] MEDS: CeleCOXIB 100 MG CAP PO SCH (08:35)
[2017-03-24] MEDS: Losartan 25 MG TAB PO SCH (08:35)
[2017-03-24] MEDS: Multivitamin W/ Minerals 1 TAB PO SCH (08:35)
[2017-03-24] MEDS: Alogliptin 25 MG TAB PO SCH (08:35)
[2017-03-24] MEDS: Ferrous Gluconate 324 MG TAB PO SCH (08:35)
[2017-03-24] MEDS: Aspirin 325 MG TAB PO SCH (08:35)
[2017-03-24] MEDS: Nicotine 21 MG PATCH TD SCH (08:36)
[2017-03-24 12:34] LABS: ALT (SGPT) 11 U/L (8-55); AST (SGOT) 19 U/L (5-34); Albumin 3.6 g/dL (3.4-4.8); Alkaline Phosphatase 63 U/L (40-150); Anion Gap 15 mmol/L (10-20); BUN (Urea Nitrogen) 13 mg/dL (9.8-20.1); Bilirubin, Total 0.4 mg/dL (0.2-1.2); Calc. Creatinine Clearance 118 mL/min (70-130); Calcium 9.5 mg/dL (7.8-10.44); Carbon Dioxide 27 mmol/L (23-31); Chloride 101 mmol/L (98-107); Estimated GFR-MDRD Greater than 90; Globulin 3.2 g/dL (2.4-3.5); Glucose 117 mg/dL (80-115); Potassium 3.6 mmol/L (3.5-5.1); Protein, Total 6.8 g/dL (6.0-8.3); Sodium 139 mmol/L (136-145)
[2017-03-24 12:44] LABS: Vancomycin, Trough 24.6 ug/mL
--- NOTE | 2017-03-24 13:44 | PDOC.PN ---
- Subjective Encounter Start Date: 03/24/17 Encounter Start Time: 06:20 Pt breathing much better. No F/C, no N/V/D/C, no CP, no cough erika with nebs. CTA yesterday negative. Down to 2L NC O2. No other compalints, no overnight events 10 point ROs performed and neg for all systems except as per hPI - Objective MAR Reviewed: Yes Vital Signs & Weight: Vital Signs (12 hours) Temp Pulse Resp BP Pulse Ox 03/24/17 12:58 97.7 F 99 16 135/87 93 L 03/24/17 08:57 98.3 F 89 16 133/84 92 L 03/24/17 08:30 98.3 F 89 16 92 L 03/24/17 03:56 98.3 F 91 16 149/89 H 95 Weight Admit Weight 215 lb Weight 215 lb I&O: 03/23/17 03/24/17 03/25/17 06:59 06:59 06:59 Intake Total 2019 1850 915 Balance 2019 1850 915 Result Diagrams: 03/24/17 05:35 03/24/17 12:03 Radiology Reviewed by me: Yes EKG Reviewed by me: Yes Phys Exam - Physical Examination Constitutional: NAD HEENT: PERRLA, moist MMs, sclera anicteric, oral pharynx no lesions Neck: no nodes, no JVD, supple, full ROM Respiratory: no wheezing, no rales, no rhonchi, clear to auscultation bilateral Cardiovascular: RRR, no significant murmur, no rub Gastrointestinal: soft, non-tender, no distention, positive bowel sounds Musculoskeletal: pulses present, edema present Neurological: non-focal, normal sensation, moves all 4 limbs Lymphatic: no nodes Psychiatric: normal affect, A&O x 3 Skin: no rash, normal turgor, cap refill <2 seconds Dx/Plan (1) Infected prosthetic knee joint Code(s): T84.59XA - INFECT/INFLM REACTION DUE TO OTH INTERNAL JOINT PROSTH, INIT ; Z96.659 - PRESENCE OF UNSPECIFIED ARTIFICIAL KNEE JOINT Status: Acute Qualifiers: Encounter type: initial encounter Qualified Code(s): T84.59XA - Infection and inflammatory reaction due to other internal joint prosthesis, initial encounter; Z96.659 - Presence of unspecified artificial knee joint; Z96.659 - Presence of unspecified artificial knee joint Comment: presumed. culture with mixed skin elo. broth cloudy, subbed out. On Vanc and rocephin. CCM, follow up cultures, ID on the case (2) DM2 (diabetes mellitus, type 2) Status: Chronic Qualifiers: Diabetes mellitus complication status: without complication Diabetes mellitus intermission coordinator insulin use: with chcf use Qualified Code(s): E11.9 - Type 2 diabetes mellitus without complications; Z79.4 - half-way (current) use of insulin; Z79.4 - half-way (current) use of insulin; Z79.4 - half-way ( current) use of insulin; Z79.4 - intermission coordinator (current) use of insulin (3) Status post total right knee replacement Code(s): Z96.651 - PRESENCE OF RIGHT ARTIFICIAL KNEE JOINT Status: Chronic (4) Anxiety Code(s): F41.9 - ANXIETY DISORDER, UNSPECIFIED Status: Chronic (5) Dyslipidemia Code(s): E78.5 - HYPERLIPIDEMIA, UNSPECIFIED Status: Chronic (6) Hypertension Code(s): I10 - ESSENTIAL (PRIMARY) HYPERTENSION Status: Chronic Qualifiers: Hypertension type: essential hypertension Qualified Code(s): I10 - Essential (primary) hypertension (7) Hypothyroidism Code(s): E03.9 - HYPOTHYROIDISM, UNSPECIFIED Status: Chronic Qualifiers: Hypothyroidism type: acquired Qualified Code(s): E03.9 - Hypothyroidism, unspecified (8) Obesity (BMI 30-39.9) Code(s): E66.9 - OBESITY, UNSPECIFIED Status: Chronic (9) Hypoxemia Code(s): R09.02 - HYPOXEMIA Status: Acute Comment: emphesematous changes to CT. Duonebs and ambuterol ordered, improved. Wean o2 as tolerated. Can go home on O2 temporarily if needed (10) Hypoxemia requiring supplemental oxygen Code(s): R09.02 - HYPOXEMIA; Z99.81 - DEPENDENCE ON SUPPLEMENTAL OXYGEN Status : Acute Comment: py hypoxic and tachy, ABG confirmed RA hypoxia, with increased A-a gradient. Will get CT angio to R/O PE. DDimer useless in this post op patient. - Plan cont current plan of care, continue antibiotics, PT/OT, delinquency prevention social worker, respiratory therapy * .
[2017-03-24 16:18] VITALS: BP 134/77; TEMP 98.4
--- NOTE | 2017-03-25 15:17 | DIS ---
DATE OF ADMISSION: 03/18/2017 DATE OF DISCHARGE: 03/24/2017 PREOPERATIVE DIAGNOSES: Rupture of quadriceps and traumatic rupture of total knee incision. POSTOPERATIVE DIAGNOSES: Rupture of quadriceps and traumatic rupture of total knee incision. PROCEDURE: Irrigation and debridement of left knee with revision of 1 portion total knee replacement size 11 X3 tibial liner. HOSPITAL STAY: The patient did okay. She had a lot a bit pain, some anxiousness, which was eased wi th meds, tincture of time, PT/OT staff. We did have her see her hospitalist group for medical assist ant Dr. Sanchez was consulted for antibiotic preventive treatment. Otherwise, rest of her hospital sta y was fairly unremarkable. She did PT, OT, and progressed quite well by 03/24/2017, she was ready to discharge home with family. DISCHARGE CONDITION: Good/stable. DISPOSITION: Home with family. FOLLOWUP: Followup would be in 10-[address] Choco Church, sooner if there are problems or con cerns. She would also follow up with her own PCP regarding her health issues and Dr. Sanchez regarding Infectious Disease issues. DISCHARGE MEDICATIONS: Given with usage instructions.
== END 2017-03-24 17:00 | disposition home or self-care (01) | DRG 488 ==
LOC: SURG A 09:25 → SURG B 16:08
PROVIDERS: ADMIT Orthopaedic Surgery; ATTEND Orthopaedic Surgery
PROC: 0SBD0ZZ Excision of Left Knee Joint, Open Approach (ICD-10-PCS; principal; 2017-03-18)
PROC: 0SPD09Z Removal of Liner from Left Knee Joint, Open Approach (ICD-10-PCS; 2017-03-18)
PROC: 0SUW09Z Supplement Left Knee Joint, Tibial Surface with Liner, Open Approach (ICD-10-PCS; 2017-03-18)
PROC: 02HV33Z Insertion of Infusion Device into Superior Vena Cava, Percutaneous Approach (ICD-10-PCS; 2017-03-19)
PROC: B5181ZA Fluoroscopy of Superior Vena Cava using Low Osmolar Contrast, Guidance (ICD-10-PCS; 2017-03-19)
DX: T84.023A Instability of internal left knee prosthesis, initial encounter (principal); T81.31XA Disruption of external operation (surgical) wound, not elsewhere classified, initial encounter; M06.9 Rheumatoid arthritis, unspecified; E03.9 Hypothyroidism, unspecified; E11.9 Type 2 diabetes mellitus without complications; E78.5 Hyperlipidemia, unspecified; I10 Essential (primary) hypertension; Z96.652 Presence of left artificial knee joint; Z91.81 History of falling; Z88.1 Allergy status to other antibiotic agents; Z88.8 Allergy status to other drugs, medicaments and biological substances; Z79.84 Long term (current) use of oral hypoglycemic drugs; Z79.52 Long term (current) use of systemic steroids; G89.29 Other chronic pain; M54.9 Dorsalgia, unspecified; E55.9 Vitamin D deficiency, unspecified; F32.9 Major depressive disorder, single episode, unspecified; J45.40 Moderate persistent asthma, uncomplicated; F17.210 Nicotine dependence, cigarettes, uncomplicated; F41.9 Anxiety disorder, unspecified; E66.9 Obesity, unspecified; Z68.36 Body mass index [BMI] 36.0-36.9, adult; R09.02 Hypoxemia; Z98.1 Arthrodesis status; Z96.651 Presence of right artificial knee joint; W19.XXXA Unspecified fall, initial encounter
CPT/HCPCS: 36415; 36416; 36569; 71045; 71275; 80048; 80053; 80202; 82805; 85025; 85027; 85610; 86140; 87070; 87205; 94640; 99211; C1751; C1776; G0463; G8978-GP-CM; G8979-GP-CL; G8987-GO-CK; G8988-GO-CI; J0696; J1100; J1170; J1644; J1940; J2001; J2405; J2704; J3010; J3370; J7050; J7620

== ENCOUNTER 2017-12-07 13:27 | Outpatient (CLI) | payer MEDICARE ==
[2017-12-07 15:14] LABS: Bilirubin Negative (Negative); Blood, Urine Negative (Negative); Clarity CLEAR (Clear); Glucose, Urine (Dipstick) Negative (Negative); Leukocyte Trace (Negative); Nitrite Negative (Negative); Protein, Urine (Dipstick) Negative (Neg-Trace); Specific Gravity, Urine 1.012 (1.002-1.036); Urobilinogen 0.2 mg/dL (0.2-1.0)
[2017-12-07 15:15] LABS: Bacteria/HPF None Seen HPF (None Seen); Hyaline Casts/LPF 0-3 HYALINE CAST LPF (0-3 Hyaline); RBC/HPF 0-3 HPF (0-3); Squamous Epithelial 0-3 HPF (0-3); WBC/HPF 0-3 HPF (0-3)
[2017-12-07 15:18] LABS: Prothrombin Time 13.4 SEC (12.0-14.7)
[2017-12-07 15:34] LABS: Anion Gap 12 mmol/L (10-20); BUN (Urea Nitrogen) 19 mg/dL (9.8-20.1); Calc. Creatinine Clearance 0 mL/min (70-130); Calcium 9.1 mg/dL (7.8-10.44); Carbon Dioxide 28 mmol/L (23-31); Chloride 102 mmol/L (98-107); Estimated GFR-MDRD 68; Glucose 135 mg/dL (80-115); Potassium 3.6 mmol/L (3.5-5.1); Sodium 138 mmol/L (136-145)
--- NOTE | 2017-12-07 15:52 | EKG ---
Test Reason : Blood Pressure : / mmHG Vent. Rate : 073 BPM Atrial Rate : 073 BPM P-R Int : 152 ms QRS Dur : 092 ms QT Int : 390 ms P-R-T Axes : 061 -73 -61 degrees QTc Int : 429 ms Normal sinus rhythm Left axis deviation Pulmonary disease pattern Incomplete right bundle branch block Abnormal ECG When compared with ECG of 04-MAR-2017 17:04, Vent. rate has decreased BY 45 BPM Inverted T waves have replaced nonspecific T wave abnormality in Inferior leads Confirmed by MELANIA BEE, DR. Dodge ([id number]) on 12/07/2017 3:51:50 PM Referred By: BILL Confirmed By:DR. Dar VELÁZQUEZ MD
[2017-12-07 16:09] LABS: #Eosinphils 0.1 thou/uL (0.0-0.7); #Lymphocytes 2.9 thou/uL (1.20-3.40); #Monocytes 0.6 thou/uL (0.11-0.59); #Neutrophils 5.8 thou/uL (1.40-6.50); %Basophils 0.5 % (0.0-1.0); %Eosinophils 1.4 % (0.0-10.0); %Lymphocytes 30.4 % (21.0-51.0); %Monocytes 5.8 % (0.0-10.0); %Neutrophils 61.8 % (42.0-75.0); Hemoglobin 13.2 g/dL (12.0-16.0); Mean Corpuscular HGB CONC 32.3 g/dL (32.0-36.0); Mean Corpuscular Hemoglobin 29.6 pg (27.0-31.0); Mean Corpuscular Volume 91.6 fL (78.0-98.0); PLT Morphology Comment Appears Adequate; Platelet Count 318 thou/uL (130-400); RBC Distribution Width 14.7 % (11.5-14.5); RBC Morphology Normal; Red Blood Cell (RBC) Count 4.45 mill/uL (4.20-5.40); White Blood Cell (WBC) Count 9.4 thou/uL (4.8-10.8)
--- NOTE | 2017-12-07 16:25 | RAD ---
CHEST TWO VIEWS: Comparison: 04-01-12, 02-24-17 History: Pre-operative exam. FINDINGS: There is atherosclerosis of the aorta. Enlarged cardiac silhouette. Pulmonary vessels and hilum are n ormal. Costophrenic angles are clear. Hyperinflation with chronic changes. No consolidation or mass. No pneumothorax or osseous abnormality. IMPRESSION: 1. Atherosclerosis. 2. Cardiomegaly. No evidence of congestive heart failure. POS: LIZA
== END 2017-12-07 13:28 | disposition home or self-care (01) ==
LOC: LABBT 13:27
PROVIDERS: ATTEND Orthopaedic Surgery
DX: Z01.818 Encounter for other preprocedural examination (principal); S83.105A Unspecified dislocation of left knee, initial encounter; I70.0 Atherosclerosis of aorta; I51.7 Cardiomegaly
CPT/HCPCS: 71046; 80048; 81001; 85025; 85610; 86850; 86900; 86901; 93005; 93010

== ENCOUNTER 2017-12-07 13:30 | Inpatient (IN) | payer MEDICARE ==
[2017-12-14] MEDS ORDERED: Sodium Chloride 0.9% 0 ML ONE (08:31)
[2017-12-14] MEDS ORDERED: CEFAZOLIN/Water 2 GM/20 ML SYRINGE ONE (08:31)
[2017-12-14] MEDS ORDERED: Vancomycin HCl 1.5 GM in Sodium Chloride 0.9% 250 ML 300 ML IVPB SCH (08:45)
[2017-12-14] MEDS ORDERED: Fentanyl 100 MCG/2 ML VIAL ONE ×3 (09:49→14:01)
[2017-12-14] MEDS ORDERED: Midazolam HCl 2 mg/2 ml Vial ONE (09:49)
[2017-12-14] MEDS ORDERED: Zolpidem Tartrate 5 MG TAB PO PRN ×2 (10:13→11:07)
[2017-12-14] MEDS ORDERED: Promethazine HCl 25 MG/ML VIAL IM PRN ×3 (10:13→12:40)
[2017-12-14] MEDS ORDERED: Ondansetron HCl/PF 4 MG/2 ML Vial IVP PRN ×3 (10:13→12:40)
[2017-12-14] MEDS ORDERED: Ropivacaine HCl/PF 250 ML in Premix Bag 1 BAG NERVE BLCK SCH (10:13)
[2017-12-14] MEDS ORDERED: Fentanyl 100 MCG/2 ML VIAL IV PRN (10:15)
[2017-12-14] MEDS ORDERED: Fentanyl 100 MCG/2 ML VIAL SLOW IVP PRN (11:07)
[2017-12-14] MEDS ORDERED: diphenhydrAMINE 25 MG CAP PO PRN (11:07)
[2017-12-14] MEDS ORDERED: Acetaminophen 325 MG TAB PO PRN (11:07)
[2017-12-14] MEDS ORDERED: Ropivacaine 0.5% HCl/PF (150 MG/30 ML VIAL) ONE (11:52)
[2017-12-14] MEDS ORDERED: Bupivacaine 0.25% HCL 30 ML VIAL ONE (11:52)
[2017-12-14] MEDS ORDERED: Promethazine HCl 25 MG/ML VIAL SLOW IVP PRN (12:40)
[2017-12-14] MEDS ORDERED: Ketorolac Tromethamine 30 MG/ML VIAL ONE (13:24)
[2017-12-14] MEDS ORDERED: PROPOFOL 200 MG/20 ML VIAL ONE (13:29)
[2017-12-14] MEDS ORDERED: Ondansetron HCl/PF 4 MG/2 ML Vial ONE (13:29)
[2017-12-14] MEDS ORDERED: Lidocaine 1% PF 5 ML VIAL ONE (13:29)
--- NOTE | 2017-12-14 13:30 | OP ---
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 Medial patellar retinacular chronic failure, status post primary repair, i ncision and drainage, washout of a traumatic dehiscence of left knee following total knee arthroplast y. POSTOPERATIVE DIAGNOSES: Left knee chronic quadriceps tendon rupture with medial collateral instabil ity, patellar subluxation. Medial patellar retinacular chronic failure, status post primary repair, incision and drainage, washout of a traumatic dehiscence of left knee following total knee arthroplas ty. OPERATIVE PROCEDURE: Arthrotomy, one component revision (polyethylene swap), left total knee arthrop lasty with open primary repair of chronic quadriceps tendon rupture and medial capsule rupture. SURGEON: Choco Church M.D. FOOD AND BEVERAGE OPERATIONS MANAGER: Rishi Florentino PA-C. ANESTHESIA: General via laryngeal mask airway augmented with indwelling femoral block. TOURNIQUET TIME: 35 minutes. ESTIMATED BLOOD LOSS: Less than 100. FINDINGS: Quadriceps tendon rupture and arthrotomy failure, medial capsule with a patellar subluxati on. Instability primary medial collateral ligament which is probably traumatic in nature following t otal knee arthroplasty. Knee instability. DRAINS: None. SPECIMENS: None. COMPLICATIONS: None. COUNTS: Correct. INDICATIONS FOR SURGERY: Jolynn is a 62-year-old female who has had a total knee arth roplasty approximately a year ago and within the immediate postoperative phase, the patient fell resu lting in a traumatic dehiscence of her knee. She had an immediate incision, drainage, washout, prima ry repair immediately upon the fall. I believe she sustained a medial collateral ligament injury at the time of the fall. Also, after that she had a second surgery which was a primary repair of her qu adriceps tendon rupture, which has been chronic in nature. She has continued to have patellar instab ility and medial collateral ligament stability and has elected to proceed with a 1 stage polyethylene swap for build up to ameliorate ligament instability. Also with primary repair of arthrotomy and he r quadriceps tendon. PROCEDURE IN DETAIL: After informed consent was obtained in the preoperative holding area, the patie nt received preoperative antibiotics. She was then taken to the operative suite where general anesth esia was induced and LMA was placed. Once adequate anesthesia was obtained, the patient was position ed appropriately on the operating table in supine position. A well-padded tourniquet was then placed over the left lower extremity and the left lower extremity was then prepped and draped in usual ster ile fashion. Prior to exsanguination, a timeout was called and all members of surgical team agreed u luis miguel site, surgeon, and patient. After this, the tourniquet was raised where it remained for the everton yanick of the case. Incision was made directly over the patient's prior incision site in the midline. We then sharply undermined the tissues and identified the FCR capsule. A median parapatellar arthr otomy was performed. We then carried our undermining up, identified the vastus medialis oblique and undermined and brought it inferiorly. We then carried the capsulotomy down inferiorly to the tubercl e, identified the polyethylene, used a sharp osteotome quarter inch to remove the size 11 polyethylen e. We then upsized to a 16 with trials and elected to proceed to go ahead and place this as it achie alexys the amount of space occupying necessity, but did place the patient in a little more valgus than e xpected, but the medial compartment was tight. We did place the appropriate polyethylene, malleted in firmly and squarely and it fit nicely with a good snap in place, confirming placement. The patien t was solid with lateral valgus stressing. She still had some medial laxity confirming her MCL injur y. We then turned attention to primary repair of the medial capsulotomy and her vastus medialis obli que and quadriceps tendon rupture. This was drawn down. We did perform a patellar advancement super ior, but prior to a watertight capsular repair the entire wound and components were copiously irrigat ed with normal saline with pulsatile lavage to a capacity of 3 liters. Watertight repair was then ac complished with #2 Ethibond with interrupted [id number]-pf-vaibz stitches. This was taken through full r danielle of motion and appeared to be watertight closure of the capsule and her extensor mechanism. Subc utaneous layer was closed with running 0 Quill stitch. The subcuticular layer was closed with 2-0 ru nning Quill stitch which was reinforced with skin cement. Sterile dressing was applied. The patient was placed in a long leg immobilizer which she will remain in for the next couple of weeks. This wa s intended to protect her repair. The patient will convalesce overnight. We will check on her in morning. The procedure was terminated without complications. The patient was awakened in the oper ative suite. LMA was removed. She was taken to recovery room in stable condition.
[2017-12-14] MEDS ORDERED: Sodium Chloride For Inhalation 0.9% 3 ML NEB ONE (13:32)
[2017-12-14] MEDS ORDERED: Albuterol Sulfate 1.25 MG/3 ML NEB ONE (13:32)
[2017-12-14] MEDS ORDERED: Dextrose 5% in Water 1,000 ML IV PRN (15:18)
[2017-12-14] MEDS ORDERED: HumaLOG 300 UNITS/3 ML VIAL SC PRN ×2 (15:18)
[2017-12-14] MEDS ORDERED: Dextrose 50% Abboject 50 ML SYRINGE SLOW IVP PRN (15:18)
[2017-12-14] MEDS: Sodium Chloride 0.9% 1,000 ML IV SCH ×2 (15:23→21:17)
[2017-12-14] MEDS: Ketorolac Tromethamine 30 MG/ML VIAL IVP SCH ×3 (15:23→23:38)
[2017-12-14] MEDS: HYDROcodone/Acetaminophen 10/325 mg Tablet PO PRN ×3 (15:34→23:45)
[2017-12-14] MEDS ORDERED: Albuterol Sulfate 2.5 mg/3 ml Neb NEB PRN (15:44)
--- NOTE | 2017-12-14 15:46 | PDOC.EVN ---
Event Note - Event Note Event Note: consuklt for med management COPD, DM, HTN, tob abuse, POD #0 L total knee revision patellar tendon and medial capsule repair by Dr Church. Home meds, duonebs, prn albuterol and nicotine patch added
--- NOTE | 2017-12-14 16:08 | RAD ---
LEFT KNEE 2 VIEWS: HISTORY: Postop. FINDINGS: A total knee prosthesis is in good position. No signs of fracture or loosening. Air is seen in the soft tissue related to the recent surgery. IMPRESSION: Placement of total knee prosthesis which appears to be in satisfactory position. POS: C
[2017-12-14] MEDS: Nicotine 7 MG PATCH TD SCH (16:35)
[2017-12-14] MEDS: CEFAZOLIN/Water 2 GM/20 ML SYRINGE SLOW IVP SCH (16:36)
[2017-12-14] MEDS: Mometasone/Formoterol 120 PUFF INHALER INH SCH (19:07)
[2017-12-14] MEDS: CeleCOXIB 100 MG CAP PO SCH (19:49)
[2017-12-14] MEDS: Ferrous Gluconate 324 MG TAB PO SCH (19:50)
[2017-12-14] MEDS: Pregabalin 75 MG CAP PO SCH (19:50)
[2017-12-14] MEDS: Senokot S 8.6-50 MG TAB PO SCH (19:50)
[2017-12-14] MEDS: Rosuvastatin 10 MG TAB PO SCH (19:50)
[2017-12-14] MEDS ORDERED: Aspirin 81 mg Enteric Coated Tablet PO SCH (21:00)
[2017-12-15] MEDS: CEFAZOLIN/Water 2 GM/20 ML SYRINGE SLOW IVP SCH
[2017-12-15] MEDS: HYDROcodone/Acetaminophen 10/325 mg Tablet PO PRN ×5 (03:48→23:22)
[2017-12-15 04:39] LABS: Hemoglobin 11.4 g/dL (12.0-16.0); Mean Corpuscular HGB CONC 30.9 g/dL (32.0-36.0); Mean Corpuscular Hemoglobin 28.5 pg (27.0-31.0); Mean Corpuscular Volume 92.4 fL (78.0-98.0); Mean Platelet Volume 6.7 fL (7.4-10.4); Platelet Count 253 thou/uL (130-400); Red Blood Cell (RBC) Count 3.99 mill/uL (4.20-5.40); White Blood Cell (WBC) Count 9.2 thou/uL (4.8-10.8)
[2017-12-15] MEDS: Levothyroxine Sodium 75 MCG TAB PO SCH (05:37)
[2017-12-15] MEDS: Ketorolac Tromethamine 30 MG/ML VIAL IVP SCH (05:38)
[2017-12-15] MEDS: Mometasone/Formoterol 120 PUFF INHALER INH SCH ×2 (07:49→19:01)
[2017-12-15] MEDS: Pregabalin 75 MG CAP PO SCH ×2 (07:57→20:41)
[2017-12-15] MEDS: Alogliptin 25 MG TAB PO SCH (07:59)
[2017-12-15] MEDS: Ferrous Gluconate 324 MG TAB PO SCH ×2 (07:59→20:41)
[2017-12-15] MEDS: Multivitamin W/ Minerals 1 TAB PO SCH (07:59)
[2017-12-15] MEDS: CeleCOXIB 100 MG CAP PO SCH ×2 (08:00→20:41)
[2017-12-15] MEDS: Aspirin 81 mg Enteric Coated Tablet PO SCH (08:01)
[2017-12-15] MEDS: Sodium Chloride 0.9% 1,000 ML IV SCH ×2 (08:05→16:36)
[2017-12-15] MEDS: Senokot S 8.6-50 MG TAB PO SCH ×2 (08:06→20:41)
[2017-12-15] MEDS: Losartan 25 MG TAB PO SCH (10:20)
[2017-12-15] MEDS: Triamterene/Hydrochlorothiazide 37.5 mg/25 mg Tablet PO SCH (10:21)
[2017-12-15 12:02] VITALS: BMI 36.6
[2017-12-15] MEDS: Nicotine 7 MG PATCH TD SCH (14:43)
[2017-12-15] MEDS: Rosuvastatin 10 MG TAB PO SCH (20:41)
[2017-12-16] MEDS: Cyclobenzaprine 10 MG TAB PO PRN ×2 (00:11→11:42)
[2017-12-16] MEDS: Sodium Chloride 0.9% 1,000 ML IV SCH ×2 (03:20→14:05)
[2017-12-16] MEDS: HYDROcodone/Acetaminophen 10/325 mg Tablet PO PRN ×5 (03:21→23:57)
[2017-12-16] MEDS: Levothyroxine Sodium 75 MCG TAB PO SCH (06:02)
[2017-12-16] MEDS: Mometasone/Formoterol 120 PUFF INHALER INH SCH ×2 (07:19→19:03)
[2017-12-16] MEDS: Losartan 25 MG TAB PO SCH (08:44)
[2017-12-16] MEDS: CeleCOXIB 100 MG CAP PO SCH ×2 (08:44→20:05)
[2017-12-16] MEDS: Triamterene/Hydrochlorothiazide 37.5 mg/25 mg Tablet PO SCH (08:44)
[2017-12-16] MEDS: Senokot S 8.6-50 MG TAB PO SCH ×2 (08:45→20:05)
[2017-12-16] MEDS: Ferrous Gluconate 324 MG TAB PO SCH ×2 (08:45→20:04)
[2017-12-16] MEDS: Pregabalin 75 MG CAP PO SCH ×2 (08:45→20:04)
[2017-12-16] MEDS: Alogliptin 25 MG TAB PO SCH (08:46)
[2017-12-16] MEDS: Multivitamin W/ Minerals 1 TAB PO SCH (08:46)
[2017-12-16] MEDS: Aspirin 81 mg Enteric Coated Tablet PO SCH (08:46)
[2017-12-16] MEDS: Nicotine 7 MG PATCH TD SCH (16:03)
[2017-12-16] MEDS: Rosuvastatin 10 MG TAB PO SCH (20:05)
[2017-12-17] MEDS: Sodium Chloride 0.9% 1,000 ML IV SCH ×2 (00:25→08:10)
[2017-12-17] MEDS: Cyclobenzaprine 10 MG TAB PO PRN ×2 (01:28→11:56)
[2017-12-17] MEDS: HYDROcodone/Acetaminophen 10/325 mg Tablet PO PRN ×3 (03:57→11:56)
[2017-12-17] MEDS: Levothyroxine Sodium 75 MCG TAB PO SCH (05:33)
--- NOTE | 2017-12-17 07:57 | DIS ---
DATE OF ADMISSION: 12/14/2017 DATE OF DISCHARGE: 12/17/2017 PREOPERATIVE DIAGNOSES: Left knee chronic quadriceps tendon rupture with medial collateral instabili ty. Patellar subluxation medial patellar retinacular chronic failure, status post primary repair, in cision and drainage, washout traumatic dehiscence of left knee following total knee arthroplasty. POSTOPERATIVE DIAGNOSES: : Left knee chronic quadriceps tendon rupture with medial collateral insta bility. Patellar subluxation medial patellar retinacular chronic failure, status post primary repair , incision and drainage, washout traumatic dehiscence of left knee following total knee arthroplasty. PROCEDURE: The patient underwent arthrotomy, one component revision polyethylene flap, left total kn ee arthroplasty with open primary repair of chronic quadriceps tendon rupture and medial capsule rupt ure. HOSPITAL COURSE: Hospital stay unremarkable. The patient was admitted to [address] here she worked with staff, physical therapy, occupational therapy, and progressed quite well. By po stoperative day #3, she was ready to discharge home. DISCHARGE CONDITION: Good/stable. DISPOSITION: Home with family. FOLLOWUP: Follow up would be in 2-3 weeks, sooner if there are problems or concerns. DISCHARGE MEDICATIONS: Given with usage instructions.
[2017-12-17] MEDS: CeleCOXIB 100 MG CAP PO SCH (08:07)
[2017-12-17] MEDS: Pregabalin 75 MG CAP PO SCH (08:07)
[2017-12-17] MEDS: Multivitamin W/ Minerals 1 TAB PO SCH (08:08)
[2017-12-17] MEDS: Losartan 25 MG TAB PO SCH (08:08)
[2017-12-17] MEDS: Senokot S 8.6-50 MG TAB PO SCH (08:08)
[2017-12-17] MEDS: Ferrous Gluconate 324 MG TAB PO SCH (08:08)
[2017-12-17] MEDS: Triamterene/Hydrochlorothiazide 37.5 mg/25 mg Tablet PO SCH (08:08)
[2017-12-17] MEDS: Aspirin 81 mg Enteric Coated Tablet PO SCH (08:09)
[2017-12-17] MEDS: Alogliptin 25 MG TAB PO SCH (08:09)
--- NOTE | 2017-12-17 08:35 | PDOC.PN ---
- Subjective Encounter Start Date: 12/15/17 Encounter Start Time: 09:30 pt did well overnight,pain controlled, no F/C, no N/V/d/c, doesnt like accuschecks. denies CP or sOB All systems reviewed and neg x as above - Objective MAR Reviewed: Yes Vital Signs & Weight: Vital Signs (12 hours) Temp Pulse Resp BP BP Pulse Ox 12/17/17 07:25 97.3 F L 83 16 120/86 96 12/17/17 04:00 98.4 F 81 20 131/83 98 12/17/17 00:28 97 16 12/16/17 23:59 98.6 F 75 20 108/77 92 L 12/16/17 20:54 92 L Weight Admit Weight 213 lb Weight 213 lb I&O: 12/16/17 12/17/17 12/18/17 06:59 06:59 06:59 Intake Total 1040 1210 Balance 1040 1210 Result Diagrams: 12/15/17 04:16 Additional Labs: Accuchecks 12/17/17 12/16/17 12/16/17 05:18 20:10 11:05 POC Glucose 149 H 141 H 161 H Phys Exam - Physical Examination Constitutional: NAD HEENT: PERRLA, moist MMs, sclera anicteric, TM's clear Neck: no nodes, no JVD, supple, full ROM Respiratory: no wheezing, no rales, no rhonchi Cardiovascular: RRR, no significant murmur Gastrointestinal: soft, non-tender, no distention, positive bowel sounds Musculoskeletal: no edema left knee in straight-leg brace Neurological: non-focal, normal sensation, moves all 4 limbs Lymphatic: no nodes Psychiatric: normal affect, A&O x 3 Skin: no rash, normal turgor, cap refill <2 seconds Dx/Plan (1) Hypoxemia requiring supplemental oxygen Code(s): R09.02 - HYPOXEMIA; Z99.81 - DEPENDENCE ON SUPPLEMENTAL OXYGEN Status : Acute Comment: history of this post op. supplemental O2. has at home already (2) DM2 (diabetes mellitus, type 2) Status: Chronic Qualifiers: Diabetes mellitus group home insulin use: without group home use Diabetes mellitus complication status: without complication Qualified Code(s): E11.9 - Type 2 diabetes mellitus without complications (3) Hypothyroidism Code(s): E03.9 - HYPOTHYROIDISM, UNSPECIFIED Status: Chronic Qualifiers: Hypothyroidism type: acquired (4) Obesity (BMI 30-39.9) Code(s): E66.9 - OBESITY, UNSPECIFIED Status: Chronic (5) Status post total right knee replacement Code(s): Z96.651 - PRESENCE OF RIGHT ARTIFICIAL KNEE JOINT Status: Chronic Comment: s/p revision and tendon repair (6) Tobacco abuse Code(s): Z72.0 - TOBACCO USE Status: Chronic - Plan cont current plan of care, plan discussed w/ family, PT/OT, out of bed/ambulate * . home soon
--- NOTE | 2017-12-17 08:37 | PDOC.PN ---
- Subjective Encounter Start Date: 12/16/17 Encounter Start Time: 10:00 no changes, still not getting apround well. planning to discharg etomorrow. No CP or SOB, no F/C, no N/V/d/C vikas po. All systems reviewed and neg x as above - Objective MAR Reviewed: Yes Vital Signs & Weight: Vital Signs (12 hours) Temp Pulse Resp BP BP Pulse Ox 12/17/17 07:25 97.3 F L 83 16 120/86 96 12/17/17 04:00 98.4 F 81 20 131/83 98 12/17/17 00:28 97 16 12/16/17 23:59 98.6 F 75 20 108/77 92 L 12/16/17 20:54 92 L Weight Admit Weight 213 lb Weight 213 lb I&O: 12/16/17 12/17/17 12/18/17 06:59 06:59 06:59 Intake Total 1040 1210 Balance 1040 1210 Result Diagrams: 12/15/17 04:16 Additional Labs: Accuchecks 12/17/17 12/16/17 12/16/17 05:18 20:10 11:05 POC Glucose 149 H 141 H 161 H Phys Exam - Physical Examination Constitutional: NAD HEENT: PERRLA, moist MMs, sclera anicteric, oral pharynx no lesions Neck: no nodes, no JVD, supple, full ROM Respiratory: no wheezing, no rales, no rhonchi, clear to auscultation bilateral Cardiovascular: RRR, no significant murmur, no rub Gastrointestinal: soft, non-tender, no distention, positive bowel sounds Musculoskeletal: edema present Neurological: non-focal, normal sensation Lymphatic: no nodes Psychiatric: normal affect, A&O x 3 Skin: no rash, normal turgor, cap refill <2 seconds Dx/Plan (1) Hypoxemia requiring supplemental oxygen Code(s): R09.02 - HYPOXEMIA; Z99.81 - DEPENDENCE ON SUPPLEMENTAL OXYGEN Status : Acute Comment: history of this post op. supplemental O2. has at home already (2) DM2 (diabetes mellitus, type 2) Status: Chronic Qualifiers: Diabetes mellitus mcfp insulin use: without intermediate project manager use Diabetes mellitus complication status: without complication Qualified Code(s): E11.9 - Type 2 diabetes mellitus without complications (3) Hypothyroidism Code(s): E03.9 - HYPOTHYROIDISM, UNSPECIFIED Status: Chronic Qualifiers: Hypothyroidism type: acquired (4) Obesity (BMI 30-39.9) Code(s): E66.9 - OBESITY, UNSPECIFIED Status: Chronic (5) Status post total right knee replacement Code(s): Z96.651 - PRESENCE OF RIGHT ARTIFICIAL KNEE JOINT Status: Chronic Comment: s/p revision and tendon repair (6) Tobacco abuse Code(s): Z72.0 - TOBACCO USE Status: Chronic - Plan * .
--- NOTE | 2017-12-17 08:40 | PDOC.PN ---
- Subjective Encounter Start Date: 12/17/17 Encounter Start Time: 08:38 wheezing some. no f/C, no nv/d/c. plans for discharge made today. All systems reviewed adn neg x as above - Objective MAR Reviewed: Yes Vital Signs & Weight: Vital Signs (12 hours) Temp Pulse Resp BP BP Pulse Ox 12/17/17 07:25 97.3 F L 83 16 120/86 96 12/17/17 04:00 98.4 F 81 20 131/83 98 12/17/17 00:28 97 16 12/16/17 23:59 98.6 F 75 20 108/77 92 L 12/16/17 20:54 92 L Weight Admit Weight 213 lb Weight 213 lb I&O: 12/16/17 12/17/17 12/18/17 06:59 06:59 06:59 Intake Total 1040 1210 Balance 1040 1210 Result Diagrams: 12/15/17 04:16 Additional Labs: Accuchecks 12/17/17 12/16/17 12/16/17 05:18 20:10 11:05 POC Glucose 149 H 141 H 161 H Phys Exam - Physical Examination Constitutional: NAD HEENT: PERRLA, moist MMs, sclera anicteric, oral pharynx no lesions Neck: no nodes, no JVD, supple, full ROM Respiratory: no rales, no rhonchi exp wheezes heard Cardiovascular: RRR, no significant murmur, no rub Gastrointestinal: soft, non-tender, no distention, positive bowel sounds Musculoskeletal: edema present Neurological: non-focal, normal sensation, moves all 4 limbs Lymphatic: no nodes Psychiatric: normal affect, A&O x 3 Skin: no rash, normal turgor, cap refill <2 seconds Dx/Plan (1) Hypoxemia requiring supplemental oxygen Code(s): R09.02 - HYPOXEMIA; Z99.81 - DEPENDENCE ON SUPPLEMENTAL OXYGEN Status : Acute Comment: history of this post op. supplemental O2. has at home already (2) DM2 (diabetes mellitus, type 2) Status: Chronic Qualifiers: Diabetes mellitus halfway insulin use: without halfway use Diabetes mellitus complication status: without complication Qualified Code(s): E11.9 - Type 2 diabetes mellitus without complications (3) Hypothyroidism Code(s): E03.9 - HYPOTHYROIDISM, UNSPECIFIED Status: Chronic Qualifiers: Hypothyroidism type: acquired (4) Obesity (BMI 30-39.9) Code(s): E66.9 - OBESITY, UNSPECIFIED Status: Chronic (5) Status post total right knee replacement Code(s): Z96.651 - PRESENCE OF RIGHT ARTIFICIAL KNEE JOINT Status: Chronic Comment: s/p revision and tendon repair (6) Tobacco abuse Code(s): Z72.0 - TOBACCO USE Status: Chronic - Plan cont current plan of care, plan discussed w/ family, PT/OT, respiratory therapy , incentive spirometry, out of bed/ambulate * .
[2017-12-17] MEDS: Mometasone/Formoterol 120 PUFF INHALER INH SCH (09:10)
[2017-12-17 11:51] VITALS: BP 117/76; TEMP 97.9
[2017-12-21] MEDS ORDERED: Ergocalciferol 1.25 MG(50,000 UNITS) CAP PO SCH (09:00)
== END 2017-12-17 12:20 | disposition home or self-care (01) | DRG 468 ==
LOC: SURG A 12-14 08:10 → SJJU 12-14 14:00
PROVIDERS: ADMIT Orthopaedic Surgery; ATTEND Orthopaedic Surgery
PROC: 0SWD0JC Revision of Synthetic Substitute in Left Knee Joint, Patellar Surface, Open Approach (ICD-10-PCS; principal; 2017-12-14)
PROC: 0SPD09Z Removal of Liner from Left Knee Joint, Open Approach (ICD-10-PCS; 2017-12-14)
PROC: 0SUW09Z Supplement Left Knee Joint, Tibial Surface with Liner, Open Approach (ICD-10-PCS; 2017-12-14)
DX: M25.362 Other instability, left knee (principal); S83.015A Lateral dislocation of left patella, initial encounter; R09.02 Hypoxemia; E11.9 Type 2 diabetes mellitus without complications; E03.9 Hypothyroidism, unspecified; E66.9 Obesity, unspecified; Z96.651 Presence of right artificial knee joint; F17.210 Nicotine dependence, cigarettes, uncomplicated; Z79.899 Other long term (current) drug therapy; Z79.891 Long term (current) use of opiate analgesic; Z68.36 Body mass index [BMI] 36.0-36.9, adult
CPT/HCPCS: 36415; 36416; 85027; 94640; 96374; C1776; G8978-GP-CL; G8979-GP-CI; G8987-GO-CK; G8988-GO-CI; J1885; J2001; J2250; J2405; J2704; J2795; J3010; J3370; J7050; J7620; S0020

== ENCOUNTER 2018-07-28 11:51 | Inpatient (IN) | payer MEDICARE ==
[~2018-07-28 11:51] MED LIST: ISOVUE-370 76%-LOCM 1 ML ONE
[2018-07-28 12:41] LABS: #Basophils 0.1 thou/uL (0.0-0.2); #Eosinphils 0.1 thou/uL (0.0-0.7); #Lymphocytes 2.9 thou/uL (1.20-3.40); #Monocytes 0.5 thou/uL (0.11-0.59); #Neutrophils 5.7 thou/uL (1.40-6.50); %Basophils 1.1 % (0.0-1.0); %Eosinophils 1.5 % (0.0-10.0); %Lymphocytes 30.8 % (21.0-51.0); %Monocytes 5.5 % (0.0-10.0); %Neutrophils 61.1 % (42.0-75.0); Hemoglobin 13.4 g/dL (12.0-16.0); Mean Corpuscular HGB CONC 32.3 g/dL (32.0-36.0); Mean Corpuscular Volume 89.5 fL (78.0-98.0); Mean Platelet Volume 7.9 fL (7.4-10.4); Platelet Count 215 thou/uL (130-400); Red Blood Cell (RBC) Count 4.63 mill/uL (4.20-5.40); White Blood Cell (WBC) Count 9.3 thou/uL (4.8-10.8)
[2018-07-28 12:43] LABS: INR-International Normal Ratio 1.2; PTT 41.6 SEC (22.9-36.1)
[2018-07-28 12:56] LABS: ALT (SGPT) 14 U/L (8-55); AST (SGOT) 19 U/L (5-34); Albumin 3.7 g/dL (3.4-4.8); Alkaline Phosphatase 72 U/L (40-150); Anion Gap 8 mmol/L (10-20); BUN (Urea Nitrogen) 18 mg/dL (9.8-20.1); Bilirubin, Total 0.6 mg/dL (0.2-1.2); Calc. Creatinine Clearance 0 mL/min (70-130); Calcium 9.1 mg/dL (7.8-10.44); Carbon Dioxide 32 mmol/L (23-31); Chloride 102 mmol/L (98-107); Estimated GFR-MDRD 55; Globulin 2.9 g/dL (2.4-3.5); Glucose 72 mg/dL (80-115); Potassium 3.3 mmol/L (3.5-5.1); Protein, Total 6.6 g/dL (6.0-8.3); Sodium 139 mmol/L (136-145)
[2018-07-28] MEDS ORDERED: methylPREDNISolone Sod Succ/PF 125 MG/2 ML VIAL ONE (13:07)
--- NOTE | 2018-07-28 13:21 | CT ---
CTA Angio Chest W WO Con History: [Dyspnea] Comparison: CT angiogram chest March 2017 Findings: CT angiogram of the chest performed after the intravenous administration of contrast. 3-D r endering provided. No proximal segmental pulmonary arterial filling defect. No pulmonary embolism. Pulmonary trunk is not definitely dilated. There is a size increasing large pericardial effusion. The greatest dimension along the lateral ventricle of the effusion measures approximately 2 cm. This is increased in size from the 2018 CT angiogram examination. There is reflux of contrast within the s uprahepatic IVC and hepatic veins. There is mild flattening of the interventricular septum. There is right atrial and right ventricular enlargement. Prevascular lymph node is similar to the comparison examination. Moderate paraseptal emphysema in the lung apices. Mild centrilobular emphysema. No significant pleural effusion. Mild pulmonary venous congestion. No thoracic spine compression fracture. No displaced rib fracture. Sternum and manubrium are intact. There is a large hypodensity superior pole left kidney, similar, suggestive of a cyst. Aortic contour is nonaneurysmal. Impression: 1. Enlarging moderate to large pericardial effusion with right heart strain. No pulmonary embolism. 2. Obstructive pulmonary disease.
--- NOTE | 2018-07-28 15:44 | PDOC.FPRHP ---
- History of Present Illness Chief Complaint: SOB, pericardial effusion History of Present Illness: This is 63 yo female with a pmh of HTN, DM2, chronic back pain, COPD, panic attacks who presents to the ED from Dr. Michel' clinic. She was sent due to pericardial effusion seen on echocardiogram as well as SOB. She reports some SOB but none more than she has been having. She denies chest pain, dyspnea, nausea, vomiting, diaphoresis, or palpitations. She reports she uses 2L of home O2 when needed but states she has had to us it more often. ED Course: solumedrol, duoneb - Allergies/Adverse Reactions Allergies Allergy/AdvReac Type Severity Reaction Status Date / Time amitriptyline Allergy Verified 07/28/18 17:56 amlodipine besylate Allergy Swollen Verified 07/28/18 17:56 [From [facility]] Lips atorvastatin Allergy Verified 07/28/18 17:56 simvastatin Allergy Verified 07/28/18 17:56 tramadol Allergy makes me Verified 07/28/18 17:56 crazy - Home Medications Medication Instructions Recorded Confirmed Type Cholecalciferol (Vitamin D3) 50,000 unit PO Q7DAYS 05/21/15 07/28/18 History [Vitamin D3] Losartan Potassium [Cozaar] 50 mg PO BID 05/21/15 07/28/18 History Triamterene/Hydrochlorothiazid 1 cap PO QAM 05/21/15 07/28/18 History [Triamterene-Hctz 37.5-25 mg Cp] Pregabalin [Lyrica] 75 mg PO BID 06/23/16 07/28/18 History Rosuvastatin [Crestor] 10 mg PO HS 06/23/16 07/28/18 History Budesonide-Formoterol [Symbicort 1 puff INH BID 02/24/17 07/28/18 History 160-4.5] Aspirin [Ecotrin Low Strength] 81 mg PO DAILY 12/07/17 07/28/18 History HYDROcodone Bit/APAP 10/325 [[place]] 1 tab PO Q4H PRN 30 Days tab 12/17/1707/28 Rx Baclofen 10 mg PO Q8HR 07/28/18 07/28/18 History Celecoxib [Celebrex] 200 mg PO DAILY 07/28/18 07/28/18 History FLUoxetine HCl [Prozac] 20 mg PO DAILY 07/28/18 07/28/18 History Levothyroxine Sodium 50 mcg PO DAILY 07/28/18 07/28/18 History Morphine ER [MS Contin] 15 mg PO Q8HR 07/28/18 07/28/18 History glipiZIDE [Glipizide] 5 mg PO DAILY 07/28/18 07/28/18 History - History PMHx: COPD, HTN, HLD, chronic back pain, Hypothyroidism, PSHx: Back surgery, BTL, Knee replacement FHx: Noncontributory Social: 40 pack year history, current smoker, denies alcohol or drugs - Review of Systems General: reports: fatigue. denies: fever/chills, weight/appetite/sleep changes , night sweats Eyes: denies: eye pain, vision changes ENT: denies: nasal congestion, rhinorrhea Respiratory: reports: cough, shortness of breath, exercise intolerance. denies : congestion Cardiovascular: denies: chest pain, palpitation, edema, paroxysmal nocturnal dyspnea Gastrointestinal: denies: nausea, vomiting, diarrhea, constipation, abdominal pain Genitourinary: denies: incontinence, dysuria Skin: denies: rashes, lesions Musculoskeletal: reports: pain (back pain) Neurological: reports: numbness (chronic LLE). denies: syncope Psychological: reports: anxiety, depression - Vital signs BP: 102/68 HR: 76 RR: 20 Tmax: 97.9 Pox: 95% on 4L nc Wt: 94 kg - Physical Exam Constitutional: NAD, awake, alert and oriented, well developed HEENT: normocephalic and atraumatic, PERRLA, EOMI, MMM Neck: supple, FROM, trachea midline, no JVD Chest: no-tender to palpation, no lesions Heart: RRR, normal S1/S2, no murmurs/rubs/gallops, pulses present, no edema Lungs: other (Diffuse wheezing present, good air movement) Abdomen: soft, non-tender, bowel sounds present, no masses/distention Musculoskeletal: normal structure, ROM grossly normal Neurological: CN II-XII intact Skin: good turgor, capillary refill <2 seconds Heme/Lymphatic: no unusual bruising or bleeding, no purpura Psychiatric: normal mood and affect, good judgment and insight, intact recent and remote memory FMR H&P: Results - Labs Result Diagrams: 07/28/18 12:22 07/28/18 12:22 Lab results: WBC 9.3 thou/uL (4.8-10.8) 07/28/18 12:22 Hgb 13.4 g/dL (12.0-16.0) 07/28/18 12:22 Hct 41.5 % (36.0-47.0) 07/28/18 12:22 MCV 89.5 fL (78.0-98.0) 07/28/18 12:22 Plt Count 215 thou/uL (130-400) 07/28/18 12:22 Neutrophils % 61.1 % (42.0-75.0) 07/28/18 12:22 Sodium 139 mmol/L (136-145) 07/28/18 12:22 Potassium 3.3 mmol/L (3.5-5.1) L 07/28/18 12:22 Chloride 102 mmol/L (98-107) 07/28/18 12:22 Carbon Dioxide 32 mmol/L (23-31) H 07/28/18 12:22 BUN 18 mg/dL (9.8-20.1) 07/28/18 12:22 Creatinine 1.20 mg/dL (0.6-1.1) H 07/28/18 12:22 Glucose 72 mg/dL (80-115) L 07/28/18 12:22 Calcium 9.1 mg/dL (7.8-10.44) 07/28/18 12:22 Total Bilirubin 0.6 mg/dL (0.2-1.2) 07/28/18 12:22 AST 19 U/L (5-34) 07/28/18 12:22 ALT 14 U/L (8-55) 07/28/18 12:22 Alkaline Phosphatase 72 U/L (40-150) 07/28/18 12:22 B-Natriuretic Peptide 508.6 pg/mL (0-100) H 07/28/18 12:22 Serum Total Protein 6.6 g/dL (6.0-8.3) 07/28/18 12:22 Albumin 3.7 g/dL (3.4-4.8) 07/28/18 12:22 - Radiology Interpretation CT scan - chest Status: report reviewed by me (CTA 1. Enlarging moderate to large pericardial effusion with right heart strain. No pulmonary embolism. 2. Obstructive pulmonary disease) FMR H&P: A/P - Problem List (1) Pericardial effusion Current Visit: Yes Status: Acute Code(s): I31.3 - PERICARDIAL EFFUSION ( NONINFLAMMATORY) (2) COPD exacerbation Current Visit: Yes Status: Acute Code(s): J44.1 - CHRONIC OBSTRUCTIVE PULMONARY DISEASE W (ACUTE) EXACERBATION (3) Anxiety Current Visit: No Status: Chronic Code(s): F41.9 - ANXIETY DISORDER, UNSPECIFIED (4) DM2 (diabetes mellitus, type 2) Current Visit: No Status: Chronic Qualifiers: Diabetes mellitus skilled nursing insulin use: without skilled nursing use Diabetes mellitus complication status: without complication Qualified Code(s): E11.9 - Type 2 diabetes mellitus without complications (5) Dyslipidemia Current Visit: No Status: Chronic Code(s): E78.5 - HYPERLIPIDEMIA, UNSPECIFIED (6) Hypertension Current Visit: No Status: Chronic Code(s): I10 - ESSENTIAL (PRIMARY) HYPERTENSION Qualifiers: Hypertension type: essential hypertension Qualified Code(s): I10 - Essential (primary) hypertension (7) Hypothyroidism Current Visit: No Status: Chronic Code(s): E03.9 - HYPOTHYROIDISM, UNSPECIFIED Qualifiers: Hypothyroidism type: acquired Qualified Code(s): E03.9 - Hypothyroidism, unspecified (8) Obesity (BMI 30-39.9) Current Visit: No Status: Chronic Code(s): E66.9 - OBESITY, UNSPECIFIED (9) Tobacco abuse Current Visit: No Status: Chronic Code(s): Z72.0 - TOBACCO USE - Plan This is a 63 yo female with a pmh of HTN, DM2, chronic back pain, COPD, panic attacks Acute on chronic hypoxic respiratory failure present on admission likely 2/2 COPD exacerbation -Admit to tele obs -S/P solumedrol, continue PO steroids -Scheduled duonebs -continue home meds -Wean oxygen to 2L or less Pericardial effusion -No signs of circulatory compromise at this time -Dr. Michel consulted -NPO after midnight DM2 -Continue home meds -ACHS glu checks, mild SSI -A1c pending HTN -Continue home meds Chronic back pain -Continue home meds Anxiety -Continue home meds Code: full Prophylaxis: SCDs Family: brother and children at bedside Diet: HH, CC, NPO after midnight Fluids: SL Disposition: Home in 1-2 days PCP: WILL FMR H&P: Upper Level - Pertinent history Pt is a 63 y/o F presenting for SOB. Sent from cardiology for eval for PE. Not seen on CTA, but pleural effusion noted. Please see nurse intern note for additional details. - Plan Date/Time: 07/28/18 8163 I, Gómez Olvera, have evaluated this patient and agree with findings/plan as outlined by nurse intern resident. Pertinent changes/additions are listed here. # Acute on Chronic Hypoxic Respiratory Failure- Pt now on 2L O2(home dose) most likely 2/2 COPD exacerbation vs Pulmonary HTN exacerbation given ABG hypercarbic and hypoxic findings. Will continue to give O2 and start prednisone and scheduled albuterol nebulizers for COPD. If not improving, will defer to Dr Michel for additional intervention/management. # Pericardial Effusion- Dr Michel aware and will follow patient. Will focus on pain control and prepare pt for possible drainage in AM. Did have ECHO performed today outpt, but do not have results. # LATRICE- Will give gentle fluids and continue to monitor. # HTN- Cont hime meds and monitoring # DM2- Will place on insulin and continue to monitor. Addendum - Attending - Attending Attestation Date/Time: 07/28/181999 I personally evaluated the patient and discussed the management with Dr. Hollis /May I agree with the History, Examination, Assessment and Plan documented above with any addition or exceptions noted below. Patient sent to ER from [facility] office for further evaluation of hypoxia , PE ruled out with thoracic CTA notable pericardial effusion and significant PMHX tobacco abuse and COPD r/o cor pulmonale. Will admit start nebulizer treatment and oral steroids for COPD . Cardiology consultation regard recommendations for further consideration of pericardial effusion.
[2018-07-28 15:54] LABS: Actual Bicarbonate (HCO3a) 29.8 mEq/L (22-28); Analyzer IN Cardio ER; Base Excess (BEa) 2.2 mEq/L (-2.0 to +3.0); CO2 Tension 59.2 mmHg (35.0-45.0); Calcium, Ionized 1.22 mmol/L (1.12-1.30); Hemoglobin (Hb) 14.5 g/dL (12.0-16.0); Potassium - ABG Lab 3.69 mmol/L (3.70-5.30); pH, Arterial 7.32 (7.35-7.45)
[2018-07-28 15:57] LABS: O2 Tension (PaO2) 57.5 mmHg (> 80.0)
[2018-07-28 15:58] LABS: Puncture Site LRA
[2018-07-28] MEDS ORDERED: Dextrose 5% in Water 1,000 ML IV PRN (17:54)
[2018-07-28] MEDS ORDERED: HumaLOG 300 UNITS/3 ML VIAL SC PRN (17:54)
[2018-07-28] MEDS ORDERED: Ondansetron ODT 4 MG TAB PO PRN (17:54)
[2018-07-28] MEDS ORDERED: Dextrose 50% Abboject 50 ML SYRINGE SLOW IVP PRN (17:54)
[2018-07-28] MEDS ORDERED: Acetaminophen 325 MG TAB PO PRN (17:54)
[2018-07-28] MEDS ORDERED: HYDROcodone/Acetaminophen 10/325 mg Tablet PO PRN (18:35)
[2018-07-28 20:11] VITALS: BMI 36.7
[2018-07-28] MEDS: Pregabalin 75 MG CAP PO SCH (20:42)
[2018-07-28] MEDS: Losartan 25 MG TAB PO SCH (20:43)
[2018-07-28] MEDS: Rosuvastatin 10 MG TAB PO SCH (20:44)
[2018-07-28] MEDS: Baclofen 10 MG TAB PO SCH (20:44)
[2018-07-28] MEDS ORDERED: Non-Formulary Item 1 EACH (Budesonide-Formoterol [Symbicort 160-4.5] 1 PUFF) INH SCH (21:00)
[2018-07-28] MEDS: Lactated Ringer's 1,000 ML IV SCH (21:43)
[2018-07-28] MEDS: Nicotine 14 MG PATCH TD SCH (21:43)
[2018-07-28] MEDS ORDERED: Carvedilol 3.125 MG TAB PO SCH (21:45)
[2018-07-28] MEDS: Morphine ER 15 MG TAB PO SCH (21:58)
[2018-07-29 06:02] LABS: Hemoglobin A1c 5.9 % (4.0-6.0)
[2018-07-29] MEDS: Baclofen 10 MG TAB PO SCH ×3 (06:09→22:25)
[2018-07-29] MEDS: Morphine ER 15 MG TAB PO SCH ×3 (06:10→22:25)
[2018-07-29] MEDS: Lactated Ringer's 1,000 ML IV SCH (06:11)
[2018-07-29] MEDS: Levothyroxine Sodium 50 MCG TAB PO SCH (06:11)
[2018-07-29 06:12] LABS: #Lymphocytes 1.4 thou/uL (1.20-3.40); #Monocytes 0.1 thou/uL (0.11-0.59); #Neutrophils 6.3 thou/uL (1.40-6.50); %Eosinophils 0.1 % (0.0-10.0); %Lymphocytes 17.8 % (21.0-51.0); %Monocytes 1.2 % (0.0-10.0); %Neutrophils 80.9 % (42.0-75.0); Mean Corpuscular Hemoglobin 27.6 pg (27.0-31.0); Mean Corpuscular Volume 89.1 fL (78.0-98.0); Mean Platelet Volume 8.9 fL (7.4-10.4); Platelet Count 210 thou/uL (130-400); Red Blood Cell (RBC) Count 4.71 mill/uL (4.20-5.40); White Blood Cell (WBC) Count 7.8 thou/uL (4.8-10.8)
[2018-07-29 06:29] LABS: Anion Gap 16 mmol/L (10-20); BUN (Urea Nitrogen) 22 mg/dL (9.8-20.1); Calc. Creatinine Clearance 75 mL/min (70-130); Calcium 9.2 mg/dL (7.8-10.44); Carbon Dioxide 21 mmol/L (23-31); Chloride 102 mmol/L (98-107); Estimated GFR-MDRD 58; Glucose 221 mg/dL (80-115); Potassium 4.7 mmol/L (3.5-5.1); Sodium 134 mmol/L (136-145)
--- NOTE | 2018-07-29 06:34 | PDOC.FM ---
- Subjective Subjective: Pt states her breathing is slightly improved overnight. She denies chest pain. She was tearful stating she just wants to enjoy her snf. She denies nausea, vomiting, or diarrhea. - Objective MAR Reviewed: Yes Vital Signs & Weight: Vital Signs (12 hours) Temp Pulse Resp BP BP Pulse Ox 07/29/18 03:21 97.8 F 63 22 H 139/67 97 07/29/18 01:50 18 100 07/28/18 23:03 97.9 F 66 20 130/70 96 07/28/18 22:13 100 07/28/18 22:12 100 07/28/18 20:28 124/71 07/28/18 20:09 97.3 F L 90 20 95 07/28/18 19:33 97.6 F 07/28/18 19:01 71 18 100 Weight Weight 97.069 kg I&O: 07/27/18 07/28/18 07/29/18 06:59 06:59 06:59 Intake Total 1240 Output Total 800 Balance 440 Result Diagrams: 07/29/18 04:32 07/29/18 04:32 Phys Exam - Physical Examination Constitutional: NAD dry mm Neck: no JVD Respiratory: wheezing present good air movement Cardiovascular: RRR, no significant murmur, no rub Gastrointestinal: soft, non-tender, no distention, positive bowel sounds Musculoskeletal: no edema, pulses present Neurological: moves all 4 limbs Psychiatric: A&O x 3 Skin: cap refill <2 seconds Dx/Plan (1) Pericardial effusion Code(s): I31.3 - PERICARDIAL EFFUSION (NONINFLAMMATORY) Status: Acute (2) COPD exacerbation Code(s): J44.1 - CHRONIC OBSTRUCTIVE PULMONARY DISEASE W (ACUTE) EXACERBATION Status: Acute (3) Anxiety Code(s): F41.9 - ANXIETY DISORDER, UNSPECIFIED Status: Chronic (4) DM2 (diabetes mellitus, type 2) Status: Chronic Qualifiers: Diabetes mellitus fpc insulin use: without truck terminal manager use Diabetes mellitus complication status: without complication Qualified Code(s): E11.9 - Type 2 diabetes mellitus without complications (5) Dyslipidemia Code(s): E78.5 - HYPERLIPIDEMIA, UNSPECIFIED Status: Chronic (6) Hypertension Code(s): I10 - ESSENTIAL (PRIMARY) HYPERTENSION Status: Chronic Qualifiers: Hypertension type: essential hypertension Qualified Code(s): I10 - Essential (primary) hypertension (7) Hypothyroidism Code(s): E03.9 - HYPOTHYROIDISM, UNSPECIFIED Status: Chronic Qualifiers: Hypothyroidism type: acquired Qualified Code(s): E03.9 - Hypothyroidism, unspecified (8) Obesity (BMI 30-39.9) Code(s): E66.9 - OBESITY, UNSPECIFIED Status: Chronic (9) Tobacco abuse Code(s): Z72.0 - TOBACCO USE Status: Chronic - Plan Plan: This is a 63 yo female with a pmh of HTN, DM2, chronic back pain, COPD, panic attacks Acute on chronic hypoxic respiratory failure present on admission likely 2/2 COPD exacerbation -Admit to tele obs -S/P solumedrol, continue PO steroids -Scheduled duonebs -continue home meds -Wean oxygen to 2L or less Pericardial effusion -No signs of circulatory compromise at this time -Dr. Michel consulted -NPO after midnight for pericardial centesis DM2 -Continue home meds -ACHS glu checks, mild SSI -A1c 5.9 HTN -Continue home meds Chronic back pain -Continue home meds Anxiety -Continue home meds Addendum - Attending - Attending Attestation Date/Time: 07/29/18 7436 I personally evaluated the patient and discussed the management with Dr. Hollis I agree with the History, Examination, Assessment and Plan documented above with any addition or exceptions noted below. Additional information severe pulmonary Hypertension will be transferred today to higher level of care in [place] Patient and family counseled to care plan and endorse understanding for reason to transfer.
[2018-07-29] MEDS: Mometasone/Formoterol 120 PUFF INHALER INH SCH ×2 (06:48→20:28)
[2018-07-29] MEDS ORDERED: Prevnar 13-Val Conj/PF 0.5 ML SYRINGE IM ONE (09:00)
[2018-07-29] MEDS: Pregabalin 75 MG CAP PO SCH ×2 (09:14→20:54)
[2018-07-29] MEDS: Triamterene/Hydrochlorothiazide 37.5 mg/25 mg Tablet PO SCH (09:14)
[2018-07-29] MEDS: predniSONE 20 MG TAB PO SCH (09:15)
[2018-07-29] MEDS: Aspirin 81 mg Enteric Coated Tablet PO SCH (09:15)
[2018-07-29] MEDS: CeleCOXIB 100 MG CAP PO SCH (09:16)
[2018-07-29] MEDS: Carvedilol 3.125 MG TAB PO SCH ×2 (09:16→20:55)
[2018-07-29] MEDS: FLUoxetine HCl 20 MG CAP PO SCH (09:16)
[2018-07-29] MEDS: Losartan 25 MG TAB PO SCH ×2 (09:16→20:53)
[2018-07-29] MEDS: glipiZIDE 5 MG TAB PO SCH (09:16)
--- NOTE | 2018-07-29 09:42 | CON ---
DATE OF CONSULTATION: 07/29/2018 HISTORY OF PRESENT ILLNESS: The patient is an unfortunate 63-year-old woman, who presents with increasing dyspnea. The patient has a history of a nonischemic cardiomyopathy. She has previously undergone cardiac evaluation. She underwent a cardiac catheterization in June of 2017 and was found to have normal left ventricular ejection fraction with a 20% mid LAD lesion. The patient at that time was noted to have normal PA pressures on her echocardiogram. The patient in the past year has developed progressive dyspnea. She reports short dyspnea at rest. The patient denies having any chest discomfort. PAST MEDICAL HISTORY: 1. Coronary artery disease. 2. History of cardiomyopathy. 3. Diabetes mellitus. 4. Hypertension. 5. Hypercholesterolemia. PAST SURGICAL HISTORY: She had a lumbar surgery. She has had rotator cuff surgery. SOCIAL HISTORY: She is a former smoker. ALLERGIES: AMLODIPINE, LIPITOR, AMOXICILLIN, AZITHROMYCIN, AND ZOCOR. CURRENT MEDICATIONS: Include, 1. Coreg 3.125 b.i.d. 2. Glipizide 5 daily. 3. Prozac 20 daily. 4. Celebrex 200 daily. 5. Crestor 10 at bedtime. 6. Lyrica 75 b.i.d. 7. Losartan 50 b.i.d. 8. Crestor 10 daily. 9. Synthroid 50 mcg daily. REVIEW OF SYSTEMS: Ten-point system noticeable for increasing anxiety. PHYSICAL EXAMINATION: GENERAL: This is an obese woman in mild distress. VITAL SIGNS: Blood pressure 132/63. NECK: Full with jugular venous distention to the jaw. LUNGS: Clear to auscultation. HEART: Regular rate and rhythm. Normal S1, S2 with a 2/6 systolic murmur. ABDOMEN: Distended. EXTREMITIES: Showed mild bilateral edema. LABORATORY DATA: White blood cell count 7.8, hemoglobin 13.0, hematocrit 42.0, platelets are 210. Sodium was 134, potassium 4.7, chloride 102, bicarbonate 21, BUN 22, creatinine 1.14. IMAGING STUDIES: Her echocardiogram revealed her to have normal left ventricular ejection fraction with a markedly dilated right ventricle and right atrial enlargement. There was severe tricuspid regurgitation with severe pulmonary hypertension with PA pressures approximately 100. Her CT scan of the chest revealed over 100. There was also a [id number] pericardial effusion. CT scan of the chest revealed a moderate to large pericardial effusion with evidence of COPD. IMPRESSION: 1. Severe pulmonary hypertension. 2. Large pericardial effusion. 3. Hypertension. 4. Diabetes mellitus. This patient has developed severe pulmonary hypertension. CT scan reveals no evidence of pulmonary embolism. More than likely this patient has developed acute primary hypertension. I have discussed this case with Dr. Salazar in [place], and the patient is recommended she will be transferred there for evaluation for pulmonary hypertension. We will follow this patient with you through her hospitalization. Please call my office. Job ID: [id number]
[2018-07-29] MEDS ORDERED: hydrOXYzine 25 MG TAB PO PRN (10:48)
[2018-07-29] MEDS: HumaLOG 300 UNITS/3 ML VIAL SC PRN ×2 (11:49→17:35)
[2018-07-29] MEDS: Rosuvastatin 10 MG TAB PO SCH (20:54)
[2018-07-29] MEDS: Nicotine 14 MG PATCH TD SCH (22:24)
[2018-07-30] MEDS: Levothyroxine Sodium 50 MCG TAB PO SCH (05:09)
[2018-07-30] MEDS: Baclofen 10 MG TAB PO SCH ×3 (05:09→22:08)
[2018-07-30] MEDS: Morphine ER 15 MG TAB PO SCH ×3 (05:09→22:10)
[2018-07-30] MEDS ORDERED: guaiFENesin 200 MG TAB PO PRN (06:55)
--- NOTE | 2018-07-30 06:56 | PDOC.FM ---
- Subjective Subjective: Pt doing well this AM. Is doing well but is anxious about her medical plan. States respiratory status has improved and is less SOB and O2 demand is better on 2L from 3.5. - Objective Vital Signs & Weight: Vital Signs (12 hours) Temp Pulse Resp BP Pulse Ox 07/30/18 04:00 97.6 F 75 18 136/74 92 L 07/30/18 01:31 87 18 93 L 07/29/18 21:30 97.5 F L 76 18 114/58 L 95 07/29/18 20:27 71 22 H 91 L 07/29/18 20:00 97.6 F 68 22 H 168/86 H 93 L Weight Weight 97.069 kg I&O: 07/28/18 07/29/18 07/30/18 06:59 06:59 06:59 Intake Total 1240 2353 Output Total 800 1150 Balance 440 1203 Result Diagrams: 07/29/18 04:32 07/29/18 04:32 Phys Exam - Physical Examination Constitutional: NAD HEENT: PERRLA, moist MMs Neck: no nodes, no JVD Respiratory: no wheezing, no rales, no rhonchi Cardiovascular: RRR, no significant murmur Gastrointestinal: soft, non-tender Musculoskeletal: no edema, pulses present Neurological: non-focal, normal sensation Psychiatric: normal affect, A&O x 3 Skin: no rash, normal turgor Dx/Plan (1) Pulmonary hypertension Code(s): I27.20 - PULMONARY HYPERTENSION, UNSPECIFIED Status: Acute (2) COPD exacerbation Code(s): J44.1 - CHRONIC OBSTRUCTIVE PULMONARY DISEASE W (ACUTE) EXACERBATION Status: Acute (3) Pericardial effusion Code(s): I31.3 - PERICARDIAL EFFUSION (NONINFLAMMATORY) Status: Acute (4) Hypoxemia requiring supplemental oxygen Code(s): R09.02 - HYPOXEMIA; Z99.81 - DEPENDENCE ON SUPPLEMENTAL OXYGEN Status : Acute (5) DM2 (diabetes mellitus, type 2) Status: Chronic Qualifiers: Diabetes mellitus fruit stuffer insulin use: without fruit stuffer use Diabetes mellitus complication status: without complication Qualified Code(s): E11.9 - Type 2 diabetes mellitus without complications (6) Hypertension Code(s): I10 - ESSENTIAL (PRIMARY) HYPERTENSION Status: Chronic Qualifiers: Hypertension type: essential hypertension Qualified Code(s): I10 - Essential (primary) hypertension - Plan Plan: This is a 63 yo female with HTN, DM2, chronic back pain, COPD, panic attacks 1. Acute on chronic hypoxic respiratory failure 2/2 likely pulmonary HTN and COPD EXacerbation -Pt is scheduled to be transferred to [place] for a procedure for her pulmonary HTN which is severely elevated. Not able to transfer yesterday as there was not an available bed, but will still plan to transfer. Respiratory status improving as COPD has become more controlled. 2. Pulmonary HTN- Apparent new diagnosis and cardiology recommends transfer to higher level of care for eval of procedure. 3. Pericardial effusion -Focus on pain control. VSS, and Dr. Michel following 4. DM2 - Continue home meds, ACHS glu checks, mild SSI, A1c 5.9 5. HTN -Continue home meds 6. Chronic back pain -Continue home meds 7. Anxiety -Continue home med DISPO: Stable for discharge when bed available. Addendum - Attending - Attending Attestation Date/Time: 07/30/18 5967 I personally evaluated the patient and discussed the management with Dr. Olvera I agree with the History, Examination, Assessment and Plan documented above with any addition or exceptions noted below.Awaiting bed at tertiary care.
[2018-07-30] MEDS ORDERED: guaiFENesin 200 MG TAB PO SCH (07:00)
[2018-07-30] MEDS: Mometasone/Formoterol 120 PUFF INHALER INH SCH ×2 (07:13→18:19)
[2018-07-30] MEDS: glipiZIDE 5 MG TAB PO SCH (07:51)
[2018-07-30] MEDS: Losartan 25 MG TAB PO SCH ×2 (07:51→22:09)
[2018-07-30] MEDS: FLUoxetine HCl 20 MG CAP PO SCH (07:51)
[2018-07-30] MEDS: CeleCOXIB 100 MG CAP PO SCH (07:52)
[2018-07-30] MEDS: Triamterene/Hydrochlorothiazide 37.5 mg/25 mg Tablet PO SCH (07:52)
[2018-07-30] MEDS: Pregabalin 75 MG CAP PO SCH ×2 (07:52→20:14)
[2018-07-30] MEDS: predniSONE 20 MG TAB PO SCH (07:52)
[2018-07-30] MEDS: Carvedilol 3.125 MG TAB PO SCH ×2 (07:52→22:09)
[2018-07-30] MEDS: Aspirin 81 mg Enteric Coated Tablet PO SCH (07:53)
--- NOTE | 2018-07-30 11:18 | EKG ---
Test Reason : CP Blood Pressure : / mmHG Vent. Rate : 074 BPM Atrial Rate : 074 BPM P-R Int : 168 ms QRS Dur : 090 ms QT Int : 398 ms P-R-T Axes : 057 245 -20 degrees QTc Int : 441 ms Normal sinus rhythm with sinus arrhythmia Possible Left atrial enlargement Right superior axis deviation Right ventricular hypertrophy Possible Inferior infarct , age undetermined T wave abnormality, consider anterolateral ischemia Abnormal ECG Confirmed by DR. Kian MARTINEZ ([id number]) on 07/30/2018 11:18:16 AM Referred By: Confirmed By:DR. Kian MARTINEZ
--- NOTE | 2018-07-30 19:04 | PDOC.CTH ---
Cardiology Progress Note - Subjective No new issues. - Objective Vital Signs Temp Pulse Resp BP Pulse Ox 07/30/18 18:18 71 18 91 L 07/30/18 16:40 98.3 F 71 18 139/71 95 07/30/18 13:58 83 16 92 L 07/30/18 12:40 97.9 F 69 18 147/78 H 74 L 07/30/18 10:47 72 16 89 L 07/30/18 07:47 97.8 F 74 22 H 145/83 H 92 L 07/30/18 07:45 96 07/30/18 07:16 96 07/30/18 07:15 66 16 96 07/30/18 07:13 66 16 96 Weight 214 lb 07/29/18 07/30/18 07/31/18 06:59 06:59 06:59 Intake Total 1240 2353 900 Output Total 800 1150 1040 Balance 440 1203 -140 - Physical Examination General/Neuro: alert & oriented x3, NAD Neck: no JVD present Lungs: CTA, unlabored respirations Heart: RRR Abdomen: NT/ND Extremities: + edema B (1+) - Telemetry Telemetry Rhythm: NSR - Labs Result Diagrams: 07/29/18 04:32 07/29/18 04:32 Troponin/CKMB Troponin I 0.012 ng/mL (< 0.028) 07/28/18 12:22 - Assessment/Plan 1. Pulmonary HTN 2. Large pericardial effusion 3. HTN 4. DMT2 PLAN: - Continue IV lasix. - If significantly SOB despite adequate diuresis may need pericardiocenthesis. - Plan is to transfer to [place] for now.
[2018-07-30] MEDS ORDERED: Furosemide 40 MG/4 ML VIAL SLOW IVP SCH (19:15)
[2018-07-30] MEDS: Nicotine 14 MG PATCH TD SCH (22:09)
[2018-07-30] MEDS: Rosuvastatin 10 MG TAB PO SCH (22:09)
[2018-07-31] MEDS: Levothyroxine Sodium 50 MCG TAB PO SCH (06:29)
[2018-07-31] MEDS: Morphine ER 15 MG TAB PO SCH ×3 (06:29→21:07)
[2018-07-31] MEDS: Baclofen 10 MG TAB PO SCH ×3 (06:29→22:31)
--- NOTE | 2018-07-31 07:02 | PDOC.FM ---
- Subjective Subjective: Pt doing well. Nervous and anxious about transfer pending. No SOB, CP. Is on O2. - Objective Vital Signs & Weight: Vital Signs (12 hours) Temp Pulse Resp BP Pulse Ox 07/31/18 03:54 98.0 F 86 18 130/85 94 L 07/31/18 01:35 66 16 07/30/18 21:51 75 16 Weight Weight 97.069 kg I&O: 07/30/18 07/31/18 08/01/18 06:59 06:59 06:59 Intake Total 2353 1150 Output Total 1150 1040 Balance 1203 110 Result Diagrams: 07/29/18 04:32 07/29/18 04:32 Phys Exam - Physical Examination Constitutional: NAD HEENT: PERRLA, moist MMs Respiratory: no wheezing, no rales, no rhonchi Cardiovascular: RRR, no significant murmur Gastrointestinal: soft, non-tender, no distention Musculoskeletal: no edema, pulses present Neurological: non-focal Psychiatric: normal affect, A&O x 3 Skin: no rash, normal turgor, cap refill <2 seconds Dx/Plan (1) Pulmonary hypertension Code(s): I27.20 - PULMONARY HYPERTENSION, UNSPECIFIED Status: Acute (2) COPD exacerbation Code(s): J44.1 - CHRONIC OBSTRUCTIVE PULMONARY DISEASE W (ACUTE) EXACERBATION Status: Acute (3) Pericardial effusion Code(s): I31.3 - PERICARDIAL EFFUSION (NONINFLAMMATORY) Status: Acute (4) Hypoxemia requiring supplemental oxygen Code(s): R09.02 - HYPOXEMIA; Z99.81 - DEPENDENCE ON SUPPLEMENTAL OXYGEN Status : Acute (5) DM2 (diabetes mellitus, type 2) Status: Chronic Qualifiers: Diabetes mellitus middle or intermediate school principal insulin use: without assisted use Diabetes mellitus complication status: without complication Qualified Code(s): E11.9 - Type 2 diabetes mellitus without complications (6) Hypertension Code(s): I10 - ESSENTIAL (PRIMARY) HYPERTENSION Status: Chronic Qualifiers: Hypertension type: essential hypertension Qualified Code(s): I10 - Essential (primary) hypertension - Plan Plan: 1. Acute on chronic hypoxic respiratory failure 2/2 likely pulmonary HTN and COPD Exacerbation- Improving -Pt is scheduled to be transferred to [place] for a procedure for her pulmonary HTN which is severely elevated. Not able to transfer yesterday as there was not an available bed, but will still plan to transfer. Respiratory status improving as COPD has become more controlled. 2. Pulmonary HTN- Apparent new diagnosis and cardiology recommends transfer to higher level of care for eval of procedure. 3. Pericardial effusion -Pain control. VSS, and Cardiology following 4. DM2 - Continue home meds, ACHS glu checks, mild SSI, A1c 5.9 5. HTN -Continue home meds 6. Chronic back pain -Continue home meds 7. Anxiety -Continue home med DISPO: Stable for discharge when bed available. Addendum - Attending - Attending Attestation Date/Time: 07/31/18 4628 I personally evaluated the patient and discussed the management with Dr. Olvera I agree with the History, Examination, Assessment and Plan documented above with any addition or exceptions noted below. Awaiting Bed in [place] patient anxious clinically stable for now.
[2018-07-31] MEDS: Mometasone/Formoterol 120 PUFF INHALER INH SCH ×2 (07:16→19:10)
[2018-07-31] MEDS: CeleCOXIB 100 MG CAP PO SCH (08:45)
[2018-07-31] MEDS: Losartan 25 MG TAB PO SCH ×2 (08:45→21:06)
[2018-07-31] MEDS: predniSONE 20 MG TAB PO SCH (08:45)
[2018-07-31] MEDS: glipiZIDE 5 MG TAB PO SCH (08:45)
[2018-07-31] MEDS: Aspirin 81 mg Enteric Coated Tablet PO SCH (08:46)
[2018-07-31] MEDS: Carvedilol 3.125 MG TAB PO SCH ×2 (08:46→21:06)
[2018-07-31] MEDS: FLUoxetine HCl 20 MG CAP PO SCH (08:46)
[2018-07-31] MEDS: Pregabalin 75 MG CAP PO SCH ×2 (08:46→21:06)
[2018-07-31] MEDS: Triamterene/Hydrochlorothiazide 37.5 mg/25 mg Tablet PO SCH (08:46)
--- NOTE | 2018-07-31 16:02 | PDOC.CTH ---
Cardiology Progress Note - Subjective Breathing is better as compared to yesterday. Diuresing. - Objective Vital Signs Temp Pulse Resp BP Pulse Ox 07/31/18 14:09 70 16 97 07/31/18 10:19 84 16 96 07/31/18 08:35 97.8 F 89 18 159/78 H 96 07/31/18 07:20 81 16 98 07/31/18 07:16 81 16 98 Weight 214 lb 07/30/18 07/31/18 08/01/18 06:59 06:59 06:59 Intake Total 2353 1150 Output Total 1150 1040 Balance 1203 110 - Physical Examination General/Neuro: alert & oriented x3, NAD Neck: no JVD present Lungs: other: (Reduced breath sounds bilat. ) Heart: RRR Abdomen: NT/ND Extremities: + edema B (1+) - Telemetry Telemetry Rhythm: NSR - Labs Result Diagrams: 07/29/18 04:32 07/29/18 04:32 Troponin/CKMB Troponin I 0.012 ng/mL (< 0.028) 07/28/18 12:22 - Assessment/Plan 1. Pulmonary HTN 2. Large pericardial effusion 3. HTN 4. DMT2 PLAN: - One dose IV lasix today. - If significantly SOB despite adequate diuresis may need pericardiocenthesis. Slight improvement in symptoms today. - Plan is to transfer to [place] for now.
[2018-07-31] MEDS: HumaLOG 300 UNITS/3 ML VIAL SC PRN (17:44)
[2018-07-31] MEDS: Rosuvastatin 10 MG TAB PO SCH (21:06)
[2018-07-31] MEDS: Nicotine 14 MG PATCH TD SCH (21:12)
[2018-08-01] MEDS: Morphine ER 15 MG TAB PO SCH ×3 (06:08→21:43)
[2018-08-01] MEDS: Baclofen 10 MG TAB PO SCH ×3 (06:09→21:43)
[2018-08-01] MEDS: Levothyroxine Sodium 50 MCG TAB PO SCH (06:09)
[2018-08-01] MEDS: Mometasone/Formoterol 120 PUFF INHALER INH SCH ×2 (07:13→18:29)
--- NOTE | 2018-08-01 07:22 | PDOC.EVN ---
Addendum - Attending - Attending Attestation Date/Time: 08/01/18 [id number] I personally evaluated the patient and discussed the management with Dr. Meyers. I agree with the History, Examination, Assessment and Plan documented in her progress note with any addition or exceptions noted below. Patient overall stable. Awaiting acceptance of transfer to [place] per Cardiology recommendations.
[2018-08-01] MEDS: predniSONE 20 MG TAB PO SCH (08:50)
[2018-08-01] MEDS: Carvedilol 3.125 MG TAB PO SCH ×2 (08:50→19:55)
[2018-08-01] MEDS: FLUoxetine HCl 20 MG CAP PO SCH (08:50)
[2018-08-01] MEDS: Losartan 25 MG TAB PO SCH ×2 (08:50→19:55)
[2018-08-01] MEDS: glipiZIDE 5 MG TAB PO SCH (08:51)
[2018-08-01] MEDS: CeleCOXIB 100 MG CAP PO SCH (08:51)
[2018-08-01] MEDS: Aspirin 81 mg Enteric Coated Tablet PO SCH (08:52)
[2018-08-01] MEDS: Pregabalin 75 MG CAP PO SCH ×2 (08:52→19:55)
[2018-08-01] MEDS: Triamterene/Hydrochlorothiazide 37.5 mg/25 mg Tablet PO SCH (08:55)
--- NOTE | 2018-08-01 09:49 | PDOC.FM ---
- Subjective Subjective: Patient reports some continued SOB on 2L O2, but reports that it is improved since admission. Denies any chest pain or edema. Endorses a cough. Tolerating PO well and denies N/V. She reports some difficulty with SOB while walking. Reports anxiety about her situation. - Objective MAR Reviewed: Yes Vital Signs & Weight: Vital Signs (12 hours) Temp Pulse Resp BP BP Pulse Ox 08/01/18 07:45 97.7 F 77 14 151/89 H 92 L 08/01/18 07:19 92 L 08/01/18 07:17 72 20 92 L 08/01/18 07:13 71 16 92 L 08/01/18 04:00 98 F 72 18 161/74 H 92 L 08/01/18 03:29 98.0 F 72 18 161/74 H 92 L 08/01/18 03:23 76 16 07/31/18 23:34 80 16 07/31/18 23:28 91 L Weight Weight 97.069 kg I&O: 07/31/18 08/01/18 08/02/18 06:59 06:59 06:59 Intake Total 1150 1120 Output Total 1040 972 Balance 110 148 Result Diagrams: 07/29/18 04:32 07/29/18 04:32 Phys Exam - Physical Examination Constitutional: NAD (resting comfortably in bed on 2L O2) HEENT: moist MMs, sclera anicteric Respiratory: no wheezing, no rales, no rhonchi, clear to auscultation bilateral Cardiovascular: RRR, no significant murmur, no rub Gastrointestinal: soft, non-tender, no distention, positive bowel sounds Musculoskeletal: no edema, pulses present Neurological: non-focal, moves all 4 limbs Psychiatric: normal affect, A&O x 3 Skin: normal turgor, cap refill <2 seconds Dx/Plan (1) Acute on chronic respiratory failure with hypoxia and hypercapnia Code(s): J96.21 - ACUTE AND CHRONIC RESPIRATORY FAILURE WITH HYPOXIA; J96.22 - ACUTE AND CHRONIC RESPIRATORY FAILURE WITH HYPERCAPNIA Status: Acute (2) Pulmonary hypertension Code(s): I27.20 - PULMONARY HYPERTENSION, UNSPECIFIED Status: Acute (3) Pericardial effusion Code(s): I31.3 - PERICARDIAL EFFUSION (NONINFLAMMATORY) Status: Acute (4) Hypoxemia requiring supplemental oxygen Code(s): R09.02 - HYPOXEMIA; Z99.81 - DEPENDENCE ON SUPPLEMENTAL OXYGEN Status : Chronic (5) DM2 (diabetes mellitus, type 2) Status: Chronic Qualifiers: Diabetes mellitus nursing home insulin use: without terminal block assembler use Diabetes mellitus complication status: without complication Qualified Code(s): E11.9 - Type 2 diabetes mellitus without complications (6) Hypertension Code(s): I10 - ESSENTIAL (PRIMARY) HYPERTENSION Status: Chronic Qualifiers: Hypertension type: essential hypertension Qualified Code(s): I10 - Essential (primary) hypertension (7) Obesity (BMI 30-39.9) Code(s): E66.9 - OBESITY, UNSPECIFIED Status: Chronic (8) Tobacco abuse Code(s): Z72.0 - TOBACCO USE Status: Chronic - Plan Plan: Acute on chronic hypoxic hypercapneic respiratory failure 2/2 Severe Pulmonary HTN and COPD exacerbation. Symptoms improving on 2L O2, duonebs, and steroids. Pulmonary HTN newly diagnosed. ABG pH 7.32, pCO2 59.2, pO2 57.5. -Dr. Michel with cardiology on board, it was recommended for patient to be transferred to [place] to be cared for by Dr. Salazar for further evaluation and management of Severe Pulmonary HTN. This transfer has been denied. Will discuss the plan regarding this with Dr. Michel today. -Continue O2 COPD exacerbation, improved -Continue steroids -Continue duonebs Pulmonary HTN New diagnosis and cardiology recommends transfer to higher level of care for eval of procedure, this has been denied so far. -Will continue to discuss plan with cardiology -Continue O2 Large Pericardial effusion -Cardiology on board, appreciate recs -Consider pericardiocentesis if worsened symptoms Diabetes Mellitus, Type 2 Controlled with A1c 5.9%. -Continue home glipizide -ACHS glu checks HTN -Continue home losartan, coreg, triamterene-HCTZ Chronic back pain -Continue home meds Anxiety -Continue home fluoxetine and hydroxyzine Code status: full VTE ppx: SCD's DISPO: Stable for transfer, however this was declined. Will discuss new plan with Dr. Michel
[2018-08-01] MEDS: HumaLOG 300 UNITS/3 ML VIAL SC PRN (17:53)
[2018-08-01] MEDS: Rosuvastatin 10 MG TAB PO SCH (19:55)
[2018-08-01 22:21] VITALS: BP 149/79; TEMP 97.5
[2018-08-02] MEDS: Nicotine 14 MG PATCH TD SCH (00:39)
--- NOTE | 2018-08-02 10:22 | DIS ---
DATE OF ADMISSION: 07/29/2018 DATE OF DISCHARGE: 08/01/2018 ADMITTING ATTENDING: Kapil Bocanegra MD DISCHARGE ATTENDING: Layton Heredia MD ADMITTING RESIDENT: Tylor Hollis DO DISCHARGE RESIDENT: Deanne Meyers MD CONSULTS: Dr. Michel with Cardiology. PROCEDURES: None. PRIMARY DIAGNOSES: 1. Acute on chronic respiratory failure with hypoxia and hypercapnia. 2. Pulmonary hypertension. 3. Pericardial effusion. 4. Hypoxia requiring supplemental oxygen. 5. Chronic obstructive pulmonary disease exacerbation. SECONDARY DIAGNOSES: 1. Diabetes mellitus type 2. 2. Hypertension. 3. Chronic back pain. 4. Anxiety. 5. Tobacco abuse. 6. Obesity. DISCHARGE MEDICATIONS: 1. DuoNeb 3 mL neb q.4 hours. 2. Aspirin 81 mg daily. 3. Baclofen 10 mg p.o. q.8 hours. 4. Carvedilol 3.125 mg p.o. b.i.d. 5. Celebrex 200 mg p.o. daily. 6. Fluoxetine 20 mg p.o. daily. 7. Glipizide 5 mg p.o. daily. 8. Hydroxyzine 25 mg p.o. q.6 hours p.r.n. anxiety. 9. Synthroid 50 mcg p.o. daily. 10. Losartan 50 mg p.o. b.i.d. 11. Dulera one puff inhaled b.i.d. 12. MS Contin 15 mg p.o. q.8 hours. 13. Prednisone 40 mg p.o. q.a.m. for one more day. 14. Lyrica 75 mg p.o. b.i.d. 15. Crestor 10 mg p.o. at bedtime. 16. Triamterene/hydrochlorothiazide 1 tablet p.o. q.a.m. DISCONTINUED MEDICATIONS: None. HISTORY OF PRESENT ILLNESS/HOSPITAL COURSE: A 63-year-old female with past medical history of hypertension, diabetes, COPD, who presented from Dr. Michel's office due to a large pericardial effusion and new onset severe pulmonary hypertension. The patient had been having shortness of breath as well as cough. She was on oxygen at home, but has been having to use it more frequently. The patient was evaluated for potential to transfer to Dr. Salazar at [facility] for further evaluation of her severe pulmonary hypertension. The patient was stabilized from our standpoint and then transferred to [place] for further care regarding this. DISPOSITION: Guarded. DISCHARGE INSTRUCTIONS: 1. Location, [facility]. 2. Diet, heart healthy. 3. Activity, as tolerated. 4. Follow up with PCP after discharge from [facility]. Job ID: [id number]
[2018-08-04] MEDS ORDERED: Ergocalciferol 1.25 MG(50,000 UNITS) CAP PO SCH (09:00)
== END 2018-08-01 23:15 | disposition short-term general hospital (02) | DRG 314 ==
LOC: ERS 11:51 → IMCU/EMU 17:31 → INTOOBSV 17:31 → 2SW 20:00 → OBSVTOIN 07-29 08:42 → 2NO 07-29 21:42
PROVIDERS: ADMIT Family Medicine; ATTEND Family Medicine
DX: I31.3 Pericardial effusion (noninflammatory) (principal); J96.21 Acute and chronic respiratory failure with hypoxia; J96.22 Acute and chronic respiratory failure with hypercapnia; J44.1 Chronic obstructive pulmonary disease with (acute) exacerbation; N17.9 Acute kidney failure, unspecified; I42.9 Cardiomyopathy, unspecified; I27.20 Pulmonary hypertension, unspecified; I10 Essential (primary) hypertension; E11.9 Type 2 diabetes mellitus without complications; E78.5 Hyperlipidemia, unspecified; E03.9 Hypothyroidism, unspecified; G89.29 Other chronic pain; M54.9 Dorsalgia, unspecified; I25.10 Atherosclerotic heart disease of native coronary artery without angina pectoris; F41.0 Panic disorder [episodic paroxysmal anxiety]; F41.9 Anxiety disorder, unspecified; F17.210 Nicotine dependence, cigarettes, uncomplicated; E66.9 Obesity, unspecified; Z68.36 Body mass index [BMI] 36.0-36.9, adult; Z99.81 Dependence on supplemental oxygen; Z79.84 Long term (current) use of oral hypoglycemic drugs; Z79.899 Other long term (current) drug therapy; Z79.82 Long term (current) use of aspirin; Z88.8 Allergy status to other drugs, medicaments and biological substances; Z88.0 Allergy status to penicillin
CPT/HCPCS: 36415; 36416; 71275; 80048; 80053; 82805; 83036; 83880; 84484; 85025; 85610; 85730; 93005; 94640; 94664; 94760; 96374; 99213; G0463; J2930; J7512; J7620; Q9966

== ENCOUNTER 2019-05-09 10:15 | Outpatient (CLI) | payer MEDICARE ==
--- NOTE | 2019-05-12 11:23 | MMO ---
Bilateral MAMMO Bilat Screen [facility]. CLINICAL HISTORY: Patient is 64 years old and is seen for screening. The patient has the following family history of breast cancer: sister, at age 49. The patient has no personal history of cancer. VIEWS: The views performed were: bilateral craniocaudal with tomosynthesis; bilateral mediolateral oblique; and bilateral mediolateral oblique with tomosynthesis. This study has been interpreted with the assistance of computer-aided detection. MAMMOGRAM FINDINGS: There are scattered fibroglandular densities. Benign calcifications are noted. There are no suspicious masses, suspicious calcifications, or new areas of architectural distortion. IMPRESSION: THERE IS NO MAMMOGRAPHIC EVIDENCE OF MALIGNANCY. A ROUTINE FOLLOW-UP MAMMOGRAM IN 1 YEAR IS RECOMMENDED. THE RESULTS OF THIS EXAM WERE SENT TO THE PATIENT. ACR BI-RADS Category 2 - Benign finding MAMMOGRAPHY NOTE: 1. A negative mammogram report should not delay a biopsy if a dominant of clinically suspicious mass is present. 2. Approximately 10% to 15% of breast cancers are not detected by mammography. 3. Adenosis and dense breasts may obscure an underlying neoplasm. Reported by: PEEWEE SAEED MD Electonically Signed: [id number]
== END 2019-05-09 10:16 | disposition home or self-care (01) ==
LOC: BICMAMMO 10:15
PROVIDERS: ATTEND Nurse Practitioner
DX: Z12.31 Encounter for screening mammogram for malignant neoplasm of breast (principal); Z80.3 Family history of malignant neoplasm of breast
CPT/HCPCS: 77063; 77067

== ENCOUNTER 2020-11-29 23:23 | Emergency (ER) | payer MEDICARE ==
[2020-11-29] MEDS ORDERED: Ketorolac Tromethamine 30 MG/ML VIAL ONE (23:52)
[2020-11-30 08:41] LABS: #Monocytes 0.5 thou/uL (0.11-0.59); %Basophils 0.2 % (0.0-1.0); %Eosinophils 0.4 % (0.0-10.0); %Lymphocytes 7.9 % (21.0-51.0); %Monocytes 4.3 % (0.0-10.0); %Neutrophils 87.2 % (42.0-75.0); Hemoglobin 11.3 g/dL (12.0-16.0); Mean Corpuscular HGB CONC 31.4 g/dL (32.0-36.0); Mean Corpuscular Hemoglobin 28.5 pg (27.0-31.0); Mean Corpuscular Volume 90.9 fL (78.0-98.0); Mean Platelet Volume 6.8 fL (7.4-10.4); Platelet Count 380 thou/uL (130-400); RBC Distribution Width 13.2 % (11.5-14.5); Red Blood Cell (RBC) Count 3.98 mill/uL (4.20-5.40); White Blood Cell (WBC) Count 12.7 thou/uL (4.8-10.8)
[2020-11-30 08:42] LABS: ALT (SGPT) 15 U/L (8-55); AST (SGOT) 22 U/L (5-34); Albumin 3.3 g/dL (3.4-4.8); Alkaline Phosphatase 163 U/L (40-110); Anion Gap 15 mmol/L (10-20); BUN (Urea Nitrogen) 13 mg/dL (9.8-20.1); Bilirubin, Total 0.3 mg/dL (0.2-1.2); Calc. Creatinine Clearance 0 mL/min (70-130); Calcium 9.1 mg/dL (7.8-10.44); Carbon Dioxide 28 mmol/L (23-31); Chloride 92 mmol/L (98-107); Globulin 3.8 g/dL (2.4-3.5); Glucose 385 mg/dL (80-115); Potassium 3.9 mmol/L (3.5-5.1); Protein, Total 7.1 g/dL (5.8-8.1); Sodium 131 mmol/L (136-145)
== END 2020-11-30 01:12 | disposition home or self-care (01) ==
LOC: ERS 23:23
DX: J44.1 Chronic obstructive pulmonary disease with (acute) exacerbation (principal); E11.9 Type 2 diabetes mellitus without complications; M79.7 Fibromyalgia; M19.90 Unspecified osteoarthritis, unspecified site; J45.909 Unspecified asthma, uncomplicated; G47.30 Sleep apnea, unspecified; E03.9 Hypothyroidism, unspecified; E78.5 Hyperlipidemia, unspecified; E78.00 Pure hypercholesterolemia, unspecified; I10 Essential (primary) hypertension; F17.210 Nicotine dependence, cigarettes, uncomplicated
CPT/HCPCS: 71045; 80053; 83605; 83880; 84484; 85025; 93005; 94644; 96374; J1885

== ENCOUNTER 2020-12-16 15:26 | Inpatient (IN) | payer MEDICARE ==
[~2020-12-16 15:26] MED LIST changes: -ISOVUE-370 76%-LOCM 1 ML ONE; +Iopamidol-370 76% 500 ML 1 ML ONE
[2020-12-16 16:18] LABS: #Lymphocytes 1.1 thou/uL (1.20-3.40); #Monocytes 0.4 thou/uL (0.11-0.59); #Neutrophils 7.8 thou/uL (1.40-6.50); %Basophils 0.1 % (0.0-1.0); %Eosinophils 0.2 % (0.0-10.0); %Lymphocytes 11.5 % (21.0-51.0); %Monocytes 4.5 % (0.0-10.0); %Neutrophils 83.6 % (42.0-75.0); Hemoglobin 10.5 g/dL (12.0-16.0); Mean Corpuscular HGB CONC 30.3 g/dL (32.0-36.0); Mean Corpuscular Hemoglobin 27.8 pg (27.0-31.0); Mean Corpuscular Volume 91.7 fL (78.0-98.0); Platelet Count 384 thou/uL (130-400); RBC Distribution Width 14.2 % (11.5-14.5); Red Blood Cell (RBC) Count 3.76 mill/uL (4.20-5.40); White Blood Cell (WBC) Count 9.4 thou/uL (4.8-10.8)
[2020-12-16] MEDS ORDERED: Cefepime 2 GM VIAL ONE (16:33)
[2020-12-16 16:43] LABS: Anion Gap 17 mmol/L (10-20); BUN (Urea Nitrogen) 8 mg/dL (9.8-20.1); Calc. Creatinine Clearance 0 mL/min (70-130); Carbon Dioxide 27 mmol/L (23-31); Chloride 92 mmol/L (98-107); Potassium 3.1 mmol/L (3.5-5.1); Sodium 133 mmol/L (136-145)
[2020-12-16 16:44] LABS: ALT (SGPT) 17 U/L (8-55); AST (SGOT) 17 U/L (5-34); Albumin 2.9 g/dL (3.4-4.8); Alkaline Phosphatase 131 U/L (40-110); Bilirubin, Total 0.5 mg/dL (0.2-1.2); Calcium 8.6 mg/dL (7.8-10.44); Globulin 3.9 g/dL (2.4-3.5); Glucose 524 mg/dL (80-115); Protein, Total 6.8 g/dL (5.8-8.1)
[2020-12-16] MEDS ORDERED: Insulin Regular 300 UNITS/3 ML VIAL ONE ×2 (16:51→16:53)
[2020-12-16] MEDS ORDERED: Potassium Chloride 20 MEQ TAB ONE (17:14)
[2020-12-16] MEDS ORDERED: Senokot S 8.6-50 MG TAB PO PRN (17:53)
[2020-12-16] MEDS ORDERED: Acetaminophen 325 MG TAB PO PRN (17:53)
[2020-12-16] MEDS ORDERED: Dextrose 50% Abboject 50 ML SYRINGE SLOW IVP PRN (19:19)
[2020-12-16] MEDS ORDERED: Dextrose 5% in Water 1,000 ML IV PRN (19:19)
[2020-12-16 19:26] LABS: Lactic Acid 3.6 mmol/L (0.5-2.2)
[2020-12-16] MEDS ORDERED: hydrOXYzine 25 MG TAB PO SCH (20:19)
[2020-12-17] MEDS: HumaLOG 300 UNITS/3 ML VIAL SC PRN ×4 (00:08→18:46)
[2020-12-17] MEDS: HYDROcodone/Acetaminophen 10/325 mg Tablet PO PRN ×4 (00:56→21:04)
[2020-12-17] MEDS ORDERED: FLU VACC QS2021-22(65YR UP)/PF 240 MCG/0.7 ML SYRINGE IM ONE (01:30)
[2020-12-17] MEDS: Cefepime 1 GM in Sodium Chloride 0.9% 100 ML IVPB SCH ×2 (05:13→16:00)
[2020-12-17] MEDS ORDERED: ALPRAZolam 0.25 MG TAB PO SCH (07:00)
[2020-12-17] MEDS: Albuterol 200 PUFF (6.7GM INHALER) INH SCH ×3 (07:43→20:50)
[2020-12-17] MEDS ORDERED: Enoxaparin Sodium 40 MG/0.4 ML SYRINGE SC SCH (09:00)
[2020-12-17 10:17] LABS: Hemoglobin A1c 13.8 % (4.0-6.0)
[2020-12-17 10:31] LABS: ALT (SGPT) 15 U/L (8-55); AST (SGOT) 17 U/L (5-34); Albumin 2.7 g/dL (3.4-4.8); Alkaline Phosphatase 113 U/L (40-110); Anion Gap 12 mmol/L (10-20); BUN (Urea Nitrogen) 7 mg/dL (9.8-20.1); Bilirubin, Total 0.4 mg/dL (0.2-1.2); Calc. Creatinine Clearance 95 mL/min (70-130); Calcium 8.3 mg/dL (7.8-10.44); Carbon Dioxide 30 mmol/L (23-31); Chloride 97 mmol/L (98-107); Globulin 3.4 g/dL (2.4-3.5); Glucose 230 mg/dL (80-115); Magnesium 1.6 mg/dL (1.6-2.6); Potassium 3.3 mmol/L (3.5-5.1); Protein, Total 6.1 g/dL (5.8-8.1); Sodium 136 mmol/L (136-145)
[2020-12-17 11:52] LABS: Band 5 % (5-11); Hemoglobin 9.8 g/dL (12.0-16.0); Lymphocytes 21 % (21-51); MDiff Complete? YES; Mean Corpuscular HGB CONC 32.6 g/dL (32.0-36.0); Mean Corpuscular Hemoglobin 29.3 pg (27.0-31.0); Mean Corpuscular Volume 89.9 fL (78.0-98.0); Mean Platelet Volume 7.2 fL (7.4-10.4); Monocytes 5 % (0-10); Myelocyte 1 % (0-0); Neutrophil 68 % (42-75); Platelet Count 365 thou/uL (130-400); Platelet Morphology Comment Appears Adequate; RBC Distribution Width 14.3 % (11.5-14.5); RBC Morphology Normal; Red Blood Cell (RBC) Count 3.35 mill/uL (4.20-5.40); White Blood Cell (WBC) Count 8.8 thou/uL (4.8-10.8)
[2020-12-17] MEDS ORDERED: Potassium Chloride 20 MEQ TAB PO SCH (12:15)
[2020-12-17] MEDS ORDERED: Lantus 1000 UNITS/10 ML VIAL SC SCH (12:30)
[2020-12-17] MEDS: hydrOXYzine 25 MG TAB PO PRN (12:53)
[2020-12-17 13:04] LABS: Actual Bicarbonate (HCO3a) 27.7 mEq/L (22-28); Base Excess (BEa) 3.6 mEq/L (-2.0 to +3.0); CO2 Tension 39.9 mmHg (35.0-45.0); Calcium, Ionized (arterial) 1.13 mmol/L (1.12-1.30); Carboxyhemoglobin (COHb) 0.6 gm% (0.0-3.0); Hemoglobin (Hb) 9.3 g/dL (12.0-16.0); O2 Tension (PaO2), arterial 63.7 mmHg (> 80.0); Potassium - ABG Lab 3.33 mmol/L (3.70-5.30); pH, Arterial 7.46 (7.35-7.45)
[2020-12-17 13:06] LABS: Puncture Site RRA
[2020-12-17 13:07] LABS: ALV-art Gradient 178.755 mmHg (0-20)
[2020-12-17] MEDS: Pregabalin 75 MG CAP PO SCH ×2 (14:17→21:03)
[2020-12-17] MEDS: Bumetanide 1 MG/4 ML VIAL IVP SCH (14:18)
[2020-12-17] MEDS: Dexamethasone 10 MG/ML VIAL SLOW IVP SCH (14:18)
[2020-12-17] MEDS ORDERED: Bumetanide 1 MG TAB PO SCH (16:30)
[2020-12-17] MEDS ORDERED: Ondansetron PF 4 MG/2 ML Vial IVP PRN (17:52)
[2020-12-17] MEDS ORDERED: Promethazine HCl 25 MG/ML VIAL IM PRN (18:00)
[2020-12-17] MEDS: Mometasone 200 MCG/Formoterol 5 MCG 120 PUFF INHALER INH SCH (18:45)
[2020-12-17] MEDS: Rosuvastatin 10 MG TAB PO SCH (21:03)
[2020-12-17] MEDS ORDERED: Dextrose 5% in Water 1,000 ML IV PRN (21:05)
[2020-12-17] MEDS ORDERED: Dextrose 50% Abboject 50 ML SYRINGE SLOW IVP PRN (21:05)
[2020-12-18] MEDS: Dexamethasone 10 MG/ML VIAL SLOW IVP SCH ×2 (02:00→13:16)
[2020-12-18] MEDS: Albuterol 200 PUFF (6.7GM INHALER) INH SCH ×4 (02:00→21:00)
[2020-12-18] MEDS: Cefepime 1 GM in Sodium Chloride 0.9% 100 ML IVPB SCH ×2 (05:50→17:15)
[2020-12-18] MEDS: Bumetanide 1 MG/4 ML VIAL IVP SCH ×2 (05:50→15:05)
[2020-12-18] MEDS: Levothyroxine Sodium 50 MCG TAB PO SCH (05:50)
[2020-12-18] MEDS: Mometasone 200 MCG/Formoterol 5 MCG 120 PUFF INHALER INH SCH ×2 (05:51→23:08)
[2020-12-18] MEDS: HumaLOG 300 UNITS/3 ML VIAL SC PRN ×4 (06:00→22:05)
[2020-12-18 07:53] LABS: ALT (SGPT) 15 U/L (8-55); AST (SGOT) 14 U/L (5-34); Albumin 2.7 g/dL (3.4-4.8); Alkaline Phosphatase 121 U/L (40-110); Anion Gap 12 mmol/L (10-20); BUN (Urea Nitrogen) 10 mg/dL (9.8-20.1); Bilirubin, Total 0.4 mg/dL (0.2-1.2); Calc. Creatinine Clearance 96 mL/min (70-130); Calcium 8.4 mg/dL (7.8-10.44); Carbon Dioxide 26 mmol/L (23-31); Chloride 102 mmol/L (98-107); Globulin 3.7 g/dL (2.4-3.5); Glucose 323 mg/dL (80-115); Magnesium 1.6 mg/dL (1.6-2.6); Potassium 3.8 mmol/L (3.5-5.1); Protein, Total 6.4 g/dL (5.8-8.1); Sodium 136 mmol/L (136-145)
[2020-12-18 07:57] LABS: Mean Corpuscular Hemoglobin 28.8 pg (27.0-31.0); Mean Platelet Volume 7.1 fL (7.4-10.4); Platelet Count 386 thou/uL (130-400); RBC Distribution Width 14.5 % (11.5-14.5); Red Blood Cell (RBC) Count 3.48 mill/uL (4.20-5.40); White Blood Cell (WBC) Count 8.2 thou/uL (4.8-10.8)
[2020-12-18 08:15] LABS: Band 5 % (5-11); Lymphocytes 11 % (21-51); MDiff Complete? YES; Monocytes 2 % (0-10); Neutrophil 82 % (42-75); Platelet Morphology Comment Appears Adequate; Polychromasia SLIGHT = 2-3 cells (100X) (0-2/hpf)
[2020-12-18] MEDS ORDERED: BARICITINIB 2 MG TAB PO SCH (09:00)
[2020-12-18] MEDS ORDERED: Lantus 1000 UNITS/10 ML VIAL SC SCH (09:00)
[2020-12-18] MEDS: Baclofen 10 MG TAB PO SCH (09:11)
[2020-12-18] MEDS: Spironolactone 25 MG TAB PO SCH (09:11)
[2020-12-18] MEDS: Pregabalin 75 MG CAP PO SCH ×3 (09:11→21:01)
[2020-12-18] MEDS: Lantus 1000 UNITS/10 ML VIAL SC SCH ×2 (09:15→21:00)
[2020-12-18] MEDS: Alogliptin 25 MG TAB PO SCH (10:23)
[2020-12-18] MEDS: Apixaban 5 MG TAB PO SCH ×3 (10:24→21:00)
[2020-12-18] MEDS: HYDROcodone/Acetaminophen 10/325 mg Tablet PO PRN (12:37)
[2020-12-18 15:15] VITALS: BMI 39.1
[2020-12-18] MEDS: Rosuvastatin 10 MG TAB PO SCH (21:01)
[2020-12-19] MEDS: Dexamethasone 10 MG/ML VIAL SLOW IVP SCH ×2 (02:25→12:57)
[2020-12-19] MEDS: Albuterol 200 PUFF (6.7GM INHALER) INH SCH ×4 (02:25→21:32)
[2020-12-19] MEDS: Cefepime 1 GM in Sodium Chloride 0.9% 100 ML IVPB SCH ×2 (05:13→17:20)
[2020-12-19] MEDS: Levothyroxine Sodium 50 MCG TAB PO SCH (05:14)
[2020-12-19] MEDS: Bumetanide 1 MG/4 ML VIAL IVP SCH ×2 (05:14→13:00)
[2020-12-19] MEDS: Mometasone 200 MCG/Formoterol 5 MCG 120 PUFF INHALER INH SCH ×2 (05:14→21:32)
[2020-12-19] MEDS: HumaLOG 300 UNITS/3 ML VIAL SC PRN ×4 (05:15→21:30)
[2020-12-19] MEDS: Pregabalin 75 MG CAP PO SCH ×3 (08:12→21:33)
[2020-12-19] MEDS: Apixaban 5 MG TAB PO SCH ×2 (08:12→21:32)
[2020-12-19] MEDS: Baclofen 10 MG TAB PO SCH (08:12)
[2020-12-19] MEDS: Spironolactone 25 MG TAB PO SCH (08:13)
[2020-12-19] MEDS: Lantus 1000 UNITS/10 ML VIAL SC SCH ×2 (08:14→21:33)
[2020-12-19 10:40] LABS: Hemoglobin 10.6 g/dL (12.0-16.0); Mean Corpuscular HGB CONC 32.2 g/dL (32.0-36.0); Mean Corpuscular Hemoglobin 29.3 pg (27.0-31.0); Mean Corpuscular Volume 90.9 fL (78.0-98.0); Mean Platelet Volume 7.1 fL (7.4-10.4); Platelet Count 403 thou/uL (130-400); RBC Distribution Width 14.9 % (11.5-14.5); Red Blood Cell (RBC) Count 3.63 mill/uL (4.20-5.40); White Blood Cell (WBC) Count 12.4 thou/uL (4.8-10.8)
[2020-12-19 10:59] LABS: #Monocytes 0.4 thou/uL (0.11-0.59); #Neutrophils 10.9 thou/uL (1.40-6.50); %Basophils 0.2 % (0.0-1.0); %Eosinophils 0.1 % (0.0-10.0); %Lymphocytes 7.9 % (21.0-51.0); %Monocytes 3.4 % (0.0-10.0); %Neutrophils 88.3 % (42.0-75.0); Band 1 % (5-11); Lymphocytes 9 % (21-51); MDiff Complete? YES; Monocytes 3 % (0-10); Myelocyte 1 % (0-0); Neutrophil 86 % (42-75); Platelet Morphology Comment Appears Increased; Polychromasia SLIGHT = 2-3 cells (100X) (0-2/hpf)
[2020-12-19 11:02] LABS: Anion Gap 13 mmol/L (10-20); BUN (Urea Nitrogen) 17 mg/dL (9.8-20.1); Calc. Creatinine Clearance 84 mL/min (70-130); Calcium 8.4 mg/dL (7.8-10.44); Carbon Dioxide 28 mmol/L (23-31); Chloride 101 mmol/L (98-107); Glucose 375 mg/dL (80-115); Sodium 138 mmol/L (136-145)
[2020-12-19] MEDS: Alogliptin 25 MG TAB PO SCH (12:11)
[2020-12-19] MEDS: HYDROcodone/Acetaminophen 10/325 mg Tablet PO PRN ×2 (12:13→21:34)
[2020-12-19] MEDS: Rosuvastatin 10 MG TAB PO SCH (21:33)
[2020-12-19] MEDS: hydrOXYzine 25 MG TAB PO PRN (21:34)
[2020-12-20] MEDS: Albuterol 200 PUFF (6.7GM INHALER) INH SCH ×4 (02:17→19:00)
[2020-12-20] MEDS: Dexamethasone 10 MG/ML VIAL SLOW IVP SCH ×2 (02:17→13:05)
[2020-12-20] MEDS: Calcium Carbonate 500 MG ChewTAB PO PRN (04:28)
[2020-12-20] MEDS: Levothyroxine Sodium 50 MCG TAB PO SCH (05:06)
[2020-12-20] MEDS: Mometasone 200 MCG/Formoterol 5 MCG 120 PUFF INHALER INH SCH ×2 (05:06→19:01)
[2020-12-20] MEDS: Cefepime 1 GM in Sodium Chloride 0.9% 100 ML IVPB SCH ×2 (05:06→17:39)
[2020-12-20] MEDS: Bumetanide 1 MG/4 ML VIAL IVP SCH ×2 (05:06→14:35)
[2020-12-20] MEDS: HumaLOG 300 UNITS/3 ML VIAL SC PRN ×2 (05:46→21:18)
[2020-12-20 06:30] LABS: #Lymphocytes 1.6 thou/uL (1.20-3.40); #Monocytes 0.8 thou/uL (0.11-0.59); #Neutrophils 9.2 thou/uL (1.40-6.50); %Basophils 0.2 % (0.0-1.0); %Eosinophils 0.2 % (0.0-10.0); %Lymphocytes 13.9 % (21.0-51.0); %Monocytes 6.6 % (0.0-10.0); %Neutrophils 79.1 % (42.0-75.0); Hemoglobin 10.2 g/dL (12.0-16.0); Mean Corpuscular Hemoglobin 27.8 pg (27.0-31.0); Mean Corpuscular Volume 89.9 fL (78.0-98.0); Mean Platelet Volume 6.9 fL (7.4-10.4); Platelet Count 427 thou/uL (130-400); RBC Distribution Width 15.1 % (11.5-14.5); Red Blood Cell (RBC) Count 3.67 mill/uL (4.20-5.40); White Blood Cell (WBC) Count 11.6 thou/uL (4.8-10.8)
[2020-12-20 06:52] LABS: Anion Gap 14 mmol/L (10-20); BUN (Urea Nitrogen) 25 mg/dL (9.8-20.1); Calc. Creatinine Clearance 76 mL/min (70-130); Calcium 8.8 mg/dL (7.8-10.44); Carbon Dioxide 25 mmol/L (23-31); Chloride 101 mmol/L (98-107); Glucose 380 mg/dL (80-115); Sodium 136 mmol/L (136-145)
[2020-12-20] MEDS ORDERED: Dextrose 50% Abboject 50 ML SYRINGE SLOW IVP PRN (08:06)
[2020-12-20] MEDS ORDERED: Dextrose 5% in Water 1,000 ML IV PRN (08:06)
[2020-12-20] MEDS: Pregabalin 75 MG CAP PO SCH ×3 (09:27→20:44)
[2020-12-20] MEDS: Baclofen 10 MG TAB PO SCH (09:27)
[2020-12-20] MEDS: Apixaban 5 MG TAB PO SCH ×2 (09:28→20:44)
[2020-12-20] MEDS: Spironolactone 25 MG TAB PO SCH (09:28)
[2020-12-20] MEDS: Alogliptin 25 MG TAB PO SCH (09:30)
[2020-12-20] MEDS: Lantus 1000 UNITS/10 ML VIAL SC SCH ×2 (09:31→20:44)
[2020-12-20] MEDS: HumaLOG 300 UNITS/3 ML VIAL SC SCH ×2 (12:10→17:57)
[2020-12-20] MEDS: HYDROcodone/Acetaminophen 10/325 mg Tablet PO PRN (17:38)
[2020-12-20] MEDS: Rosuvastatin 10 MG TAB PO SCH (20:44)
[2020-12-21] MEDS: Albuterol 200 PUFF (6.7GM INHALER) INH SCH ×4 (01:00→20:45)
[2020-12-21] MEDS: Dexamethasone 10 MG/ML VIAL SLOW IVP SCH ×2 (01:05→09:14)
[2020-12-21] MEDS: Cefepime 1 GM in Sodium Chloride 0.9% 100 ML IVPB SCH ×2 (04:55→16:42)
[2020-12-21] MEDS: Levothyroxine Sodium 50 MCG TAB PO SCH (04:55)
[2020-12-21] MEDS: Bumetanide 1 MG/4 ML VIAL IVP SCH ×2 (04:55→13:58)
[2020-12-21] MEDS: Mometasone 200 MCG/Formoterol 5 MCG 120 PUFF INHALER INH SCH ×2 (04:55→20:45)
[2020-12-21] MEDS: HumaLOG 300 UNITS/3 ML VIAL SC PRN ×2 (04:56→12:01)
[2020-12-21] MEDS: Pregabalin 75 MG CAP PO SCH ×3 (08:14→20:38)
[2020-12-21] MEDS: Calcium Carbonate 500 MG ChewTAB PO PRN (08:14)
[2020-12-21] MEDS: Apixaban 5 MG TAB PO SCH ×2 (08:14→20:37)
[2020-12-21] MEDS: hydrOXYzine 25 MG TAB PO PRN ×2 (08:14→20:37)
[2020-12-21] MEDS: HYDROcodone/Acetaminophen 5/325 mg Tablet PO PRN (08:14)
[2020-12-21] MEDS: Spironolactone 25 MG TAB PO SCH (08:14)
[2020-12-21] MEDS: MACITENTAN 10 MG PO SCH (08:15)
[2020-12-21] MEDS: Baclofen 10 MG TAB PO SCH (08:15)
[2020-12-21] MEDS: Lantus 1000 UNITS/10 ML VIAL SC SCH ×3 (08:18→20:44)
[2020-12-21] MEDS: HumaLOG 300 UNITS/3 ML VIAL SC SCH ×3 (08:18→16:42)
[2020-12-21] MEDS: Alogliptin 25 MG TAB PO SCH (08:20)
[2020-12-21] MEDS ORDERED: Hydrocerin (Eucerin) Cream 120 gm Jar TOP PRN (08:54)
[2020-12-21] MEDS ORDERED: Loratadine 10 MG TAB PO PRN (08:54)
[2020-12-21] MEDS ORDERED: hydrALAZINE 20 MG/ML VIAL SLOW IVP PRN (08:54)
[2020-12-21] MEDS ORDERED: Benzonatate 100 MG CAP PO PRN (08:54)
[2020-12-21] MEDS ORDERED: Artificial Tear Sol 15 ML BOT EA EYE PRN (08:54)
[2020-12-21] MEDS ORDERED: Cepastat Lozenges 1 LOZ PO PRN (08:54)
[2020-12-21] MEDS ORDERED: Loperamide HCl 2 MG CAP PO PRN (08:54)
[2020-12-21] MEDS ORDERED: Ondansetron ODT 4 MG TAB PO PRN (08:54)
[2020-12-21] MEDS ORDERED: GUAIFENESIN SF SOLN 200 MG/10 ML UDCUP PO PRN (08:54)
[2020-12-21] MEDS ORDERED: Bisacodyl 5 MG TAB PO PRN (08:54)
[2020-12-21] MEDS ORDERED: Sodium Chloride 0.65% Nasal 44 ML BOT EA NARE PRN (08:54)
[2020-12-21] MEDS ORDERED: Ondansetron PF 4 MG/2 ML Vial IVP PRN (08:54)
[2020-12-21] MEDS ORDERED: Melatonin 3 MG TAB PO PRN (08:55)
[2020-12-21] MEDS: HYDROcodone/Acetaminophen 10/325 mg Tablet PO PRN ×2 (13:58→20:37)
[2020-12-21] MEDS: Rosuvastatin 10 MG TAB PO SCH (20:37)
[2020-12-21] MEDS: Lorazepam 0.5 MG TAB PO PRN (20:37)
[2020-12-21] MEDS: [UNRECOGNIZED DRUG - OTHER] INH SCH (20:38)
[2020-12-22] MEDS: Albuterol 200 PUFF (6.7GM INHALER) INH SCH ×4 (01:40→17:34)
[2020-12-22] MEDS: [UNRECOGNIZED DRUG - OTHER] INH SCH ×4 (04:32→21:36)
[2020-12-22] MEDS: Cefepime 1 GM in Sodium Chloride 0.9% 100 ML IVPB SCH ×2 (06:00→17:03)
[2020-12-22] MEDS: Bumetanide 1 MG/4 ML VIAL IVP SCH ×2 (06:00→14:08)
[2020-12-22] MEDS: Levothyroxine Sodium 50 MCG TAB PO SCH (06:00)
[2020-12-22] MEDS: Mometasone 200 MCG/Formoterol 5 MCG 120 PUFF INHALER INH SCH ×2 (06:01→17:34)
[2020-12-22] MEDS: Lorazepam 0.5 MG TAB PO PRN ×2 (06:02→21:37)
[2020-12-22] MEDS: HYDROcodone/Acetaminophen 10/325 mg Tablet PO PRN ×3 (06:02→21:37)
[2020-12-22] MEDS: Spironolactone 25 MG TAB PO SCH (08:10)
[2020-12-22] MEDS: Pregabalin 75 MG CAP PO SCH ×3 (08:10→21:36)
[2020-12-22] MEDS: Dexamethasone 10 MG/ML VIAL SLOW IVP SCH (08:10)
[2020-12-22] MEDS: hydrOXYzine 25 MG TAB PO PRN ×3 (08:11→23:53)
[2020-12-22] MEDS: Alogliptin 25 MG TAB PO SCH (08:11)
[2020-12-22] MEDS: Calcium Carbonate 500 MG ChewTAB PO PRN (08:11)
[2020-12-22] MEDS: Baclofen 10 MG TAB PO SCH (08:11)
[2020-12-22] MEDS: Apixaban 5 MG TAB PO SCH ×2 (08:11→21:36)
[2020-12-22] MEDS: HumaLOG 300 UNITS/3 ML VIAL SC SCH (08:12)
[2020-12-22] MEDS: Lantus 1000 UNITS/10 ML VIAL SC SCH ×3 (08:12→21:38)
[2020-12-22] MEDS: MACITENTAN 10 MG PO SCH (08:13)
[2020-12-22] MEDS: HumaLOG 300 UNITS/3 ML VIAL SC PRN ×2 (17:34→21:37)
[2020-12-22] MEDS: Rosuvastatin 10 MG TAB PO SCH (21:36)
[2020-12-23] MEDS: Albuterol 200 PUFF (6.7GM INHALER) INH SCH ×2 (02:31→06:10)
[2020-12-23] MEDS: [UNRECOGNIZED DRUG - OTHER] INH SCH ×2 (02:45→08:11)
[2020-12-23] MEDS: Cefepime 1 GM in Sodium Chloride 0.9% 100 ML IVPB SCH (05:02)
[2020-12-23] MEDS: Bumetanide 1 MG/4 ML VIAL IVP SCH (05:02)
[2020-12-23] MEDS: Levothyroxine Sodium 50 MCG TAB PO SCH (05:03)
[2020-12-23] MEDS: HYDROcodone/Acetaminophen 10/325 mg Tablet PO PRN (05:03)
[2020-12-23] MEDS: HumaLOG 300 UNITS/3 ML VIAL SC PRN (05:12)
[2020-12-23] MEDS: Mometasone 200 MCG/Formoterol 5 MCG 120 PUFF INHALER INH SCH (06:10)
[2020-12-23] MEDS: Apixaban 5 MG TAB PO SCH (08:08)
[2020-12-23] MEDS: Calcium Carbonate 500 MG ChewTAB PO PRN (08:08)
[2020-12-23] MEDS: Alogliptin 25 MG TAB PO SCH (08:08)
[2020-12-23] MEDS: HYDROcodone/Acetaminophen 5/325 mg Tablet PO PRN (08:09)
[2020-12-23] MEDS: Pregabalin 75 MG CAP PO SCH (08:09)
[2020-12-23] MEDS: Spironolactone 25 MG TAB PO SCH (08:09)
[2020-12-23] MEDS: hydrOXYzine 25 MG TAB PO PRN (08:09)
[2020-12-23] MEDS: Baclofen 10 MG TAB PO SCH (08:09)
[2020-12-23] MEDS: MACITENTAN 10 MG PO SCH (08:10)
[2020-12-23] MEDS: Lantus 1000 UNITS/10 ML VIAL SC SCH (08:10)
[2020-12-23 08:14] VITALS: BP 121/72; TEMP 97.9
[2020-12-23] MEDS ORDERED: Dexamethasone 4 mg/ml Vial SLOW IVP SCH (09:00)
== END 2020-12-23 13:42 | disposition home health service (06) | DRG 314 ==
LOC: ERS 15:26 → T4-B 17:14
PROVIDERS: ADMIT Internal Medicine; ATTEND Internal Medicine
PROC: 8E0ZXY6 Isolation (ICD-10-PCS; 2020-12-16)
PROC: 3E0333Z Introduction of Anti-inflammatory into Peripheral Vein, Percutaneous Approach (ICD-10-PCS; 2020-12-17)
PROC: XW0DXM6 Introduction of Baricitinib into Mouth and Pharynx, External Approach, New Technology Group 6 (ICD-10-PCS; principal; 2020-12-18)
DX: I27.22 Pulmonary hypertension due to left heart disease (principal); U07.1 COVID-19; J96.21 Acute and chronic respiratory failure with hypoxia; J12.82 Pneumonia due to coronavirus disease 2019; R04.2 Hemoptysis; J44.1 Chronic obstructive pulmonary disease with (acute) exacerbation; J44.0 Chronic obstructive pulmonary disease with (acute) lower respiratory infection; I27.23 Pulmonary hypertension due to lung diseases and hypoxia; I10 Essential (primary) hypertension; E78.5 Hyperlipidemia, unspecified; I27.20 Pulmonary hypertension, unspecified; E03.9 Hypothyroidism, unspecified; E66.9 Obesity, unspecified; F17.210 Nicotine dependence, cigarettes, uncomplicated; E11.65 Type 2 diabetes mellitus with hyperglycemia; G89.29 Other chronic pain; M54.9 Dorsalgia, unspecified; M19.90 Unspecified osteoarthritis, unspecified site; E78.00 Pure hypercholesterolemia, unspecified; M79.7 Fibromyalgia; Z96.651 Presence of right artificial knee joint; F32.A Depression, unspecified; M71.21 Synovial cyst of popliteal space [Baker], right knee; Z99.81 Dependence on supplemental oxygen; Z88.6 Allergy status to analgesic agent; Z88.8 Allergy status to other drugs, medicaments and biological substances; Z98.51 Tubal ligation status; Z79.82 Long term (current) use of aspirin; Z79.01 Long term (current) use of anticoagulants; Z68.39 Body mass index [BMI] 39.0-39.9, adult; Z79.51 Long term (current) use of inhaled steroids; Z79.899 Other long term (current) drug therapy; Z79.84 Long term (current) use of oral hypoglycemic drugs
CPT/HCPCS: 36415; 36416; 36600; 71045; 71275; 80048; 80053; 82728; 82805; 83036; 83605; 83615; 83735; 83880; 84484; 85007; 85025; 85027; 85379; 86140; 87040; 87070; 87205; 93005; 93970; 94640; 94760; J0692; J1100; J1650; J1815; J1956; J3490; J7620; Q9967

== ENCOUNTER 2021-09-26 12:52 | Outpatient (CLI) | payer MEDICARE | END 2021-09-26 12:53 | disposition home or self-care (01) | LOC: BICMAMMO 12:52 | PROVIDERS: ATTEND Registered Nurse | DX: Z12.31 Encounter for screening mammogram for malignant neoplasm of breast (principal); Z13.820 Encounter for screening for osteoporosis; M85.851 Other specified disorders of bone density and structure, right thigh; M85.852 Other specified disorders of bone density and structure, left thigh; Z78.0 Asymptomatic menopausal state; Z80.3 Family history of malignant neoplasm of breast | CPT/HCPCS: 77063; 77067; 77080 ==

== ENCOUNTER 2022-03-24 01:47 | Inpatient (IN) | payer MEDICARE ==
[2022-03-24] MEDS ORDERED: Aspirin Chewable 81 MG TAB ONE (02:09)
[2022-03-24] MEDS ORDERED: Furosemide 40 MG/4 ML VIAL ONE (02:22)
[2022-03-24] MEDS ORDERED: Pantoprazole 40 MG VIAL ONE (02:50)
[2022-03-24] MEDS ORDERED: Cefepime 2 GM VIAL ONE (02:50)
[2022-03-24] MEDS ORDERED: Ondansetron PF 4 MG/2 ML Vial ONE (02:50)
[2022-03-24 02:52] LABS: Mean Corpuscular HGB CONC 32.5 g/dL (32.0-36.0); Mean Corpuscular Volume 95.4 fl (78.0-98.0); Mean Platelet Volume 7.6 fL (7.4-10.4); Platelet Count 304 10x3/uL (130-400); RBC Distribution Width 13.4 % (11.5-14.5); Red Blood Cell (RBC) Count 4.83 mill/uL (4.20-5.40); White Blood Cell (WBC) Count 18.3 10x3/uL (4.8-10.8)
[2022-03-24 03:11] LABS: ALT (SGPT) 12 U/L (8-55); AST (SGOT) 14 U/L (5-34); Alkaline Phosphatase 194 U/L (40-110); Anion Gap 12 mmol/L (10-20); BUN (Urea Nitrogen) 18 mg/dL (9.8-20.1); Bilirubin, Total 0.5 mg/dL (0.2-1.2); Calc. Creatinine Clearance 0 mL/min (70-130); Calcium 9.9 mg/dL (7.8-10.44); Carbon Dioxide 24 mmol/L (23-31); Chloride 99 mmol/L (98-107); Estimated GFR 43; Globulin 4.2 g/dL (2.4-3.5); Glucose 255 mg/dL (80-115); Potassium 4.2 mmol/L (3.5-5.1); Protein, Total 8.2 g/dL (5.8-8.1); Sodium 131 mmol/L (136-145)
[2022-03-24] MEDS ORDERED: Diazepam 10 MG/2 ML SYRINGE ONE (03:11)
[2022-03-24 03:46] LABS: Band 2 % (5-11); Lymphocytes 14 % (21-51); MDiff Complete? YES; Monocytes 9 % (0-10); Neutrophil 71 % (42-75); Platelet Morphology Comment Appears Adequate; RBC Morphology Normal; Reactive Lymphocytes 4 % (0-10)
[2022-03-24 04:56] LABS: SARS-CoV-2 NAA Rapid Test Not Detected (NotDetected)
[2022-03-24] MEDS ORDERED: Iopamidol-370 76% 500 ML 1 ML ONE (07:47)
[2022-03-24] MEDS ORDERED: Ergocalciferol 1.25 MG(50,000 UNITS) CAP PO SCH (08:45)
[2022-03-24] MEDS ORDERED: Non-Formulary Item 1 EACH (Dulaglutide [Trulicity] 0.75 MG/0.5 ML Pen.Injctr) SC SCH (08:45)
[2022-03-24] MEDS ORDERED: hydrOXYzine 10 MG TAB PO PRN (08:58)
[2022-03-24] MEDS ORDERED: Rosuvastatin 10 MG TAB PO SCH (09:00)
[2022-03-24] MEDS ORDERED: Non-Formulary Item 1 EACH (Insulin Glargine,Hum.Rec.Anlog [Toujeo Solostar] 300 UNIT/ML I SQ SCH (09:00)
[2022-03-24] MEDS ORDERED: Mometasone 200 MCG/Formoterol 5 MCG 120 PUFF INHALER INH PRN ×2 (09:11→12:15)
[2022-03-24] MEDS ORDERED: Dextrose 50% Abboject 50 ML SYRINGE IVP PRN (09:15)
[2022-03-24] MEDS ORDERED: Dextrose 5% in Water 1,000 ML IV PRN (09:15)
[2022-03-24] MEDS: Azithromycin 500 MG in Sodium Chloride 0.9% 250 ML 250 ML IVPB SCH (09:26)
[2022-03-24] MEDS: cefTRIAXone\\ROCEPHIN 1 GM in Sodium Chloride 0.9% 100 ML IVPB SCH (09:26)
[2022-03-24] MEDS: DULoxetine 60 MG CAP PO SCH (09:27)
[2022-03-24] MEDS: Apixaban 5 MG TAB PO SCH ×2 (09:27→20:59)
[2022-03-24] MEDS: Levothyroxine Sodium 50 MCG TAB PO SCH (09:27)
[2022-03-24] MEDS: Pregabalin 75 MG CAP PO SCH ×3 (09:28→20:59)
[2022-03-24] MEDS: Spironolactone 25 MG TAB PO SCH (09:28)
[2022-03-24] MEDS: Sertraline 100 MG TAB PO SCH (09:29)
[2022-03-24] MEDS: Famotidine 20 MG TAB PO SCH (09:29)
[2022-03-24] MEDS: Insulin Glargine 30 UNITS/0.3 ML VIAL SC SCH (09:29)
[2022-03-24] MEDS: Baclofen 10 MG TAB PO SCH ×2 (09:29→20:59)
[2022-03-24] MEDS: Empagliflozin 25 MG TAB PO SCH (09:53)
[2022-03-24] MEDS ORDERED: Ipratropium/Albuterol 3 ML NEB NEB PRN ×2 (10:00→12:15)
[2022-03-24 10:15] LABS: Troponin I 0.011 ng/mL (< 0.028)
[2022-03-24] MEDS: HYDROcodone/Acetaminophen 7.5/325 mg Tablet PO PRN ×2 (12:04→20:58)
[2022-03-24] MEDS: HumaLOG 300 UNITS/3 ML VIAL SC PRN ×3 (12:05→21:04)
[2022-03-24] MEDS: Bumetanide 1 MG TAB PO SCH (15:40)
[2022-03-24] MEDS: Rosuvastatin 10 MG TAB PO SCH (20:59)
[2022-03-25 03:55] LABS: #Eosinphils 0.3 thou/uL (0.0-0.7); #Lymphocytes 3.4 thou/uL (1.20-3.40); #Monocytes 1.1 thou/uL (0.11-0.59); #Neutrophils 7.9 thou/uL (1.40-6.50); %Basophils 0.2 % (0.0-1.0); %Eosinophils 2.1 % (0.0-10.0); %Lymphocytes 26.9 % (21.0-51.0); %Monocytes 8.4 % (0.0-10.0); %Neutrophils 62.3 % (42.0-75.0); Hemoglobin 13.4 g/dL (12.0-16.0); Mean Corpuscular HGB CONC 31.8 g/dL (32.0-36.0); Mean Corpuscular Hemoglobin 30.8 pg (27.0-31.0); Mean Platelet Volume 7.4 fL (7.4-10.4); Platelet Count 275 10x3/uL (130-400); RBC Distribution Width 13.4 % (11.5-14.5); Red Blood Cell (RBC) Count 4.35 mill/uL (4.20-5.40); White Blood Cell (WBC) Count 12.7 10x3/uL (4.8-10.8)
[2022-03-25] MEDS: HYDROcodone/Acetaminophen 7.5/325 mg Tablet PO PRN ×3 (05:59→20:40)
[2022-03-25 07:59] LABS: Albumin 3.6 g/dL (3.4-4.8)
[2022-03-25 08:00] LABS: Chloride 101 mmol/L (98-107); Potassium 3.5 mmol/L (3.5-5.1); Sodium 136 mmol/L (136-145)
[2022-03-25 08:01] LABS: Calcium 9.4 mg/dL (7.8-10.44)
[2022-03-25 08:02] LABS: Globulin 3.8 g/dL (2.4-3.5); Glucose 107 mg/dL (80-115); Protein, Total 7.4 g/dL (5.8-8.1)
[2022-03-25] MEDS: Spironolactone 25 MG TAB PO SCH (08:02)
[2022-03-25] MEDS: Levothyroxine Sodium 50 MCG TAB PO SCH (08:02)
[2022-03-25] MEDS: Baclofen 10 MG TAB PO SCH ×2 (08:02→20:33)
[2022-03-25 08:03] LABS: Anion Gap 13 mmol/L (10-20); Carbon Dioxide 26 mmol/L (23-31)
[2022-03-25] MEDS: Sertraline 100 MG TAB PO SCH (08:03)
[2022-03-25] MEDS: Bumetanide 1 MG TAB PO SCH ×2 (08:03→15:49)
[2022-03-25] MEDS: Apixaban 5 MG TAB PO SCH ×2 (08:03→20:33)
[2022-03-25] MEDS: Empagliflozin 25 MG TAB PO SCH (08:03)
[2022-03-25] MEDS: Insulin Glargine 30 UNITS/0.3 ML VIAL SC SCH (08:03)
[2022-03-25] MEDS: Pregabalin 75 MG CAP PO SCH ×3 (08:03→20:33)
[2022-03-25] MEDS: DULoxetine 60 MG CAP PO SCH (08:03)
[2022-03-25] MEDS: Famotidine 20 MG TAB PO SCH (08:03)
[2022-03-25 08:04] LABS: Bilirubin, Total 0.3 mg/dL (0.2-1.2)
[2022-03-25] MEDS: cefTRIAXone\\ROCEPHIN 1 GM in Sodium Chloride 0.9% 100 ML IVPB SCH (08:04)
[2022-03-25 08:05] LABS: Alkaline Phosphatase 165 U/L (40-110); Calc. Creatinine Clearance 76 mL/min (70-130); Estimated GFR 50
[2022-03-25 08:06] LABS: BUN (Urea Nitrogen) 18 mg/dL (9.8-20.1)
[2022-03-25 08:07] LABS: AST (SGOT) 13 U/L (5-34)
[2022-03-25 08:08] LABS: ALT (SGPT) Less than 7 U/L (8-55)
[2022-03-25] MEDS: Azithromycin 500 MG in Sodium Chloride 0.9% 250 ML 250 ML IVPB SCH (09:34)
[2022-03-25] MEDS: HumaLOG 300 UNITS/3 ML VIAL SC PRN (12:24)
[2022-03-25] MEDS: Rosuvastatin 10 MG TAB PO SCH (20:33)
[2022-03-25] MEDS: Simethicone Chewable 80 MG TAB PO PRN (22:42)
[2022-03-26 05:15] VITALS: BMI 40.6
[2022-03-26 07:46] LABS: #Eosinphils 0.3 thou/uL (0.0-0.7); #Monocytes 0.8 thou/uL (0.11-0.59); #Neutrophils 6.9 thou/uL (1.40-6.50); %Basophils 0.1 % (0.0-1.0); %Eosinophils 2.5 % (0.0-10.0); %Lymphocytes 27.5 % (21.0-51.0); %Monocytes 7.2 % (0.0-10.0); %Neutrophils 62.7 % (42.0-75.0); Mean Corpuscular HGB CONC 33.1 g/dL (32.0-36.0); Mean Corpuscular Hemoglobin 32.2 pg (27.0-31.0); Mean Corpuscular Volume 97.5 fl (78.0-98.0); Mean Platelet Volume 7.6 fL (7.4-10.4); Platelet Count 299 10x3/uL (130-400); RBC Distribution Width 13.3 % (11.5-14.5); Red Blood Cell (RBC) Count 4.33 mill/uL (4.20-5.40); White Blood Cell (WBC) Count 10.9 10x3/uL (4.8-10.8)
[2022-03-26 08:02] LABS: ALT (SGPT) 9 U/L (8-55); AST (SGOT) 13 U/L (5-34); Albumin 3.6 g/dL (3.4-4.8); Alkaline Phosphatase 168 U/L (40-110); Anion Gap 12 mmol/L (10-20); BUN (Urea Nitrogen) 22 mg/dL (9.8-20.1); Bilirubin, Total 0.3 mg/dL (0.2-1.2); Calc. Creatinine Clearance 75 mL/min (70-130); Calcium 9.7 mg/dL (7.8-10.44); Carbon Dioxide 31 mmol/L (23-31); Chloride 97 mmol/L (98-107); Estimated GFR 49; Globulin 4.3 g/dL (2.4-3.5); Glucose 95 mg/dL (80-115); Potassium 3.4 mmol/L (3.5-5.1); Protein, Total 7.9 g/dL (5.8-8.1); Sodium 137 mmol/L (136-145)
[2022-03-26] MEDS: HYDROcodone/Acetaminophen 7.5/325 mg Tablet PO PRN ×3 (08:16→21:40)
[2022-03-26] MEDS: Bumetanide 1 MG TAB PO SCH ×2 (08:17→17:24)
[2022-03-26] MEDS: Apixaban 5 MG TAB PO SCH ×2 (08:18→21:40)
[2022-03-26] MEDS: DULoxetine 60 MG CAP PO SCH (08:18)
[2022-03-26] MEDS: Spironolactone 25 MG TAB PO SCH (08:18)
[2022-03-26] MEDS: Baclofen 10 MG TAB PO SCH ×2 (08:18→21:40)
[2022-03-26] MEDS: Famotidine 20 MG TAB PO SCH (08:18)
[2022-03-26] MEDS: Empagliflozin 25 MG TAB PO SCH (08:18)
[2022-03-26] MEDS: Sertraline 100 MG TAB PO SCH (08:18)
[2022-03-26] MEDS: Pregabalin 75 MG CAP PO SCH ×3 (08:18→21:40)
[2022-03-26] MEDS: Levothyroxine Sodium 50 MCG TAB PO SCH (08:19)
[2022-03-26] MEDS: cefTRIAXone\\ROCEPHIN 1 GM in Sodium Chloride 0.9% 100 ML IVPB SCH (08:19)
[2022-03-26] MEDS: Insulin Glargine 30 UNITS/0.3 ML VIAL SC SCH (08:20)
[2022-03-26] MEDS: Azithromycin 500 MG in Sodium Chloride 0.9% 250 ML 250 ML IVPB SCH (09:19)
[2022-03-26] MEDS: HumaLOG 300 UNITS/3 ML VIAL SC PRN (12:09)
[2022-03-26] MEDS: Rosuvastatin 10 MG TAB PO SCH (21:40)
[2022-03-26] MEDS: Simethicone Chewable 80 MG TAB PO PRN (22:05)
[2022-03-27] MEDS: HumaLOG 300 UNITS/3 ML VIAL SC PRN ×2 (06:07→16:12)
[2022-03-27] MEDS: HYDROcodone/Acetaminophen 7.5/325 mg Tablet PO PRN ×2 (06:21→14:01)
[2022-03-27 07:16] LABS: #Basophils 0.1 thou/uL (0.0-0.2); #Eosinphils 0.3 thou/uL (0.0-0.7); #Lymphocytes 3.4 thou/uL (1.20-3.40); #Monocytes 0.7 thou/uL (0.11-0.59); #Neutrophils 4.9 thou/uL (1.40-6.50); %Basophils 0.7 % (0.0-1.0); %Lymphocytes 36.8 % (21.0-51.0); %Monocytes 7.3 % (0.0-10.0); %Neutrophils 52.3 % (42.0-75.0); Hemoglobin 13.7 g/dL (12.0-16.0); Mean Corpuscular HGB CONC 32.8 g/dL (32.0-36.0); Mean Corpuscular Hemoglobin 31.5 pg (27.0-31.0); Mean Platelet Volume 7.5 fL (7.4-10.4); Platelet Count 283 10x3/uL (130-400); RBC Distribution Width 13.2 % (11.5-14.5); Red Blood Cell (RBC) Count 4.35 mill/uL (4.20-5.40); White Blood Cell (WBC) Count 9.3 10x3/uL (4.8-10.8)
[2022-03-27 07:46] LABS: ALT (SGPT) 11 U/L (8-55); AST (SGOT) 15 U/L (5-34); Albumin 3.5 g/dL (3.4-4.8); Alkaline Phosphatase 159 U/L (40-110); Anion Gap 12 mmol/L (10-20); BUN (Urea Nitrogen) 22 mg/dL (9.8-20.1); Bilirubin, Total 0.3 mg/dL (0.2-1.2); Calc. Creatinine Clearance 79 mL/min (70-130); Calcium 9.4 mg/dL (7.8-10.44); Carbon Dioxide 27 mmol/L (23-31); Chloride 100 mmol/L (98-107); Estimated GFR 51; Globulin 4.2 g/dL (2.4-3.5); Glucose 169 mg/dL (80-115); Magnesium 2.2 mg/dL (1.6-2.6); Phosphorus 3.7 mg/dL (2.3-4.7); Potassium 3.4 mmol/L (3.5-5.1); Protein, Total 7.7 g/dL (5.8-8.1); Sodium 136 mmol/L (136-145)
[2022-03-27] MEDS: Pregabalin 75 MG CAP PO SCH ×2 (08:25→14:02)
[2022-03-27] MEDS: Levothyroxine Sodium 50 MCG TAB PO SCH (08:25)
[2022-03-27] MEDS: Famotidine 20 MG TAB PO SCH (08:26)
[2022-03-27] MEDS: Empagliflozin 25 MG TAB PO SCH (08:26)
[2022-03-27] MEDS: Bumetanide 1 MG TAB PO SCH ×2 (08:26→16:12)
[2022-03-27] MEDS: Spironolactone 25 MG TAB PO SCH (08:26)
[2022-03-27] MEDS: Baclofen 10 MG TAB PO SCH (08:26)
[2022-03-27] MEDS: DULoxetine 60 MG CAP PO SCH (08:26)
[2022-03-27] MEDS: Sertraline 100 MG TAB PO SCH (08:26)
[2022-03-27] MEDS: Apixaban 5 MG TAB PO SCH (08:26)
[2022-03-27] MEDS: Insulin Glargine 30 UNITS/0.3 ML VIAL SC SCH (08:27)
[2022-03-27] MEDS: cefTRIAXone\\ROCEPHIN 1 GM in Sodium Chloride 0.9% 100 ML IVPB SCH (08:27)
[2022-03-27] MEDS: Azithromycin 500 MG in Sodium Chloride 0.9% 250 ML 250 ML IVPB SCH (08:30)
[2022-03-27 11:41] VITALS: BP 114/73; TEMP 97.7
[2022-03-27] MEDS ORDERED: Potassium Chloride 20 MEQ TAB PO SCH (13:46)
== END 2022-03-27 18:59 | disposition home or self-care (01) | DRG 193 ==
LOC: ERS 01:47 → ERHOLD 04:44 → CCU 06:04 → T4-A 03-25 16:53
PROVIDERS: ADMIT Student in an Organized Health Care Education/Training Program; ATTEND Internal Medicine
DX: J15.9 Unspecified bacterial pneumonia (principal); J96.21 Acute and chronic respiratory failure with hypoxia; M79.7 Fibromyalgia; Z20.822 Contact with and (suspected) exposure to COVID-19; E03.9 Hypothyroidism, unspecified; E78.00 Pure hypercholesterolemia, unspecified; I10 Essential (primary) hypertension; E11.9 Type 2 diabetes mellitus without complications; G47.33 Obstructive sleep apnea (adult) (pediatric); I27.20 Pulmonary hypertension, unspecified; N18.30 Chronic kidney disease, stage 3 unspecified; E11.22 Type 2 diabetes mellitus with diabetic chronic kidney disease; I12.9 Hypertensive chronic kidney disease with stage 1 through stage 4 chronic kidney disease, or unspecified chronic kidney disease; Z96.651 Presence of right artificial knee joint; F17.210 Nicotine dependence, cigarettes, uncomplicated; Z98.51 Tubal ligation status; Z88.8 Allergy status to other drugs, medicaments and biological substances; Z79.899 Other long term (current) drug therapy; Z79.01 Long term (current) use of anticoagulants
CPT/HCPCS: 36415; 36416; 71045; 71275; 80053; 83735; 83880; 84100; 84484; 85025; 86850; 86900; 86901; 87070; 87077; 87186; 87205; 87804; 93005; 94660; 96374; 96375; C9113; J0456; J0692; J0696; J1815; J1940; J2405; J3360; J3490; J7050; Q9967; U0002

== ENCOUNTER 2022-07-27 03:04 | Inpatient (IN) | payer MEDICARE ==
[2022-07-27 04:23] LABS: #Eosinphils 0.1 thou/uL (0.0-0.7); #Monocytes 0.9 thou/uL (0.11-0.59); #Neutrophils 13.6 thou/uL (1.40-6.50); %Basophils 0.2 % (0.0-1.0); %Eosinophils 0.3 % (0.0-10.0); %Lymphocytes 14.1 % (21.0-51.0); %Monocytes 5.4 % (0.0-10.0); %Neutrophils 79.5 % (42.0-75.0); Hemoglobin 14.6 g/dL (12.0-16.0); Mean Corpuscular HGB CONC 32.2 g/dL (32.0-36.0); Mean Corpuscular Hemoglobin 30.5 pg (27.0-31.0); Mean Corpuscular Volume 94.8 fl (78.0-98.0); Mean Platelet Volume 9.7 fL (7.4-10.4); Platelet Count 322 10x3/uL (130-400); RBC Distribution Width 16.1 % (11.5-14.5); Red Blood Cell (RBC) Count 4.78 mill/uL (4.20-5.40); White Blood Cell (WBC) Count 17.1 10x3/uL (4.8-10.8)
[2022-07-27 04:48] LABS: ALT (SGPT) 10 U/L (8-55); AST (SGOT) 11 U/L (5-34); Albumin 3.7 g/dL (3.4-4.8); Alkaline Phosphatase 131 U/L (40-110); Anion Gap 15 mmol/L (10-20); BUN (Urea Nitrogen) 10 mg/dL (9.8-20.1); Bilirubin, Total 0.4 mg/dL (0.2-1.2); CK (CPK) 87 U/L (29-168); Calc. Creatinine Clearance 0 mL/min (70-130); Calcium 9.3 mg/dL (7.8-10.44); Carbon Dioxide 20 mmol/L (23-31); Chloride 103 mmol/L (98-107); Estimated GFR 43; Glucose 221 mg/dL (80-115); Lipase Less than 4 U/L (8-78); Potassium 3.4 mmol/L (3.5-5.1); Protein, Total 7.7 g/dL (5.8-8.1); Sodium 135 mmol/L (136-145)
[2022-07-27] MEDS ORDERED: HYDROcodone/Acetaminophen 5/325 mg Tablet ONE (05:04)
[2022-07-27] MEDS ORDERED: Cefepime 2 GM VIAL ONE (05:08)
[2022-07-27] MEDS ORDERED: Vancomycin 1 GM/200 ML (FROZEN) BAG ONE (06:02)
[2022-07-27] MEDS ORDERED: Baclofen 10 MG TAB PO PRN (08:49)
[2022-07-27] MEDS ORDERED: Dextrose 50% Abboject 50 ML SYRINGE SLOW IVP PRN (08:53)
[2022-07-27] MEDS ORDERED: Dextrose 5% in Water 1,000 ML IV PRN (08:53)
[2022-07-27] MEDS ORDERED: HumaLOG 300 UNITS/3 ML VIAL SC PRN ×2 (08:54)
[2022-07-27] MEDS ORDERED: VANCOMYCIN IVPB PRN (08:56)
[2022-07-27] MEDS ORDERED: Metoclopramide HCl 10 MG/2 ML VIAL IVP PRN (08:56)
[2022-07-27] MEDS ORDERED: Insulin Glargine 30 UNITS/0.3 ML VIAL SC SCH (09:00)
[2022-07-27] MEDS ORDERED: Electrolyte Replacement Protocol 1 EACH FS SCH (09:15)
[2022-07-27] MEDS ORDERED: Potassium Chloride 20 MEQ TAB PO SCH (09:15)
[2022-07-27 09:38] VITALS: BMI 43.9
[2022-07-27] MEDS: Apixaban 5 MG TAB PO SCH ×2 (10:40→20:54)
[2022-07-27] MEDS: DULoxetine 60 MG CAP PO SCH (10:40)
[2022-07-27] MEDS: Empagliflozin 25 MG TAB PO SCH (10:40)
[2022-07-27] MEDS: Pregabalin 75 MG CAP PO SCH ×2 (10:40→20:54)
[2022-07-27] MEDS: Ipratropium/Albuterol 3 ML NEB NEB SCH ×4 (12:36→22:32)
[2022-07-27] MEDS: methylPREDNISolone Sod Succ 40 MG VIAL IVP SCH ×2 (13:06→17:53)
[2022-07-27] MEDS: HYDROcodone/Acetaminophen 7.5/325 mg Tablet PO PRN (15:42)
[2022-07-27] MEDS: Bumetanide 1 MG TAB PO SCH (17:46)
[2022-07-27] MEDS: Cefepime 2 GM in Sodium Chloride 0.9% 100 ML IVPB SCH (17:53)
[2022-07-27] MEDS: Budesonide 0.5 MG/2 ML NEB NEB SCH (18:12)
[2022-07-27] MEDS: Arformoterol 15 MCG/2 ML NEB NEB SCH (18:12)
[2022-07-27] MEDS ORDERED: AFRIN NASAL MIST 15 ML BOT NS PRN (18:46)
[2022-07-27] MEDS ORDERED: Loratadine 10 MG TAB PO PRN (19:14)
[2022-07-27] MEDS ORDERED: Oxymetazoline HCl 0.05% (30 ML BOT) NS PRN (20:02)
[2022-07-27] MEDS: Rosuvastatin 10 MG TAB PO SCH (20:54)
[2022-07-27] MEDS: Acetaminophen 325 MG TAB PO PRN (20:54)
[2022-07-27] MEDS: hydrOXYzine 25 MG TAB PO PRN (20:54)
[2022-07-28] MEDS: methylPREDNISolone Sod Succ 40 MG VIAL IVP SCH ×4 (00:38→17:36)
[2022-07-28] MEDS: Ipratropium/Albuterol 3 ML NEB NEB SCH ×6 (02:26→22:30)
[2022-07-28] MEDS: Cefepime 2 GM in Sodium Chloride 0.9% 100 ML IVPB SCH ×2 (04:34→17:36)
[2022-07-28] MEDS: Levothyroxine Sodium 50 MCG TAB PO SCH (05:51)
[2022-07-28] MEDS: Vancomycin 1 GM in Premix Bag 1 BAG IVPB SCH (05:51)
[2022-07-28 06:54] LABS: #Monocytes 0.1 thou/uL (0.11-0.59); #Neutrophils 8.1 thou/uL (1.40-6.50); %Basophils 0.1 % (0.0-1.0); %Lymphocytes 10.6 % (21.0-51.0); %Monocytes 1.4 % (0.0-10.0); %Neutrophils 87.4 % (42.0-75.0); Hemoglobin 13.7 g/dL (12.0-16.0); Mean Corpuscular HGB CONC 31.9 g/dL (32.0-36.0); Mean Corpuscular Hemoglobin 30.2 pg (27.0-31.0); Mean Corpuscular Volume 94.5 fl (78.0-98.0); Mean Platelet Volume 9.6 fL (7.4-10.4); Platelet Count 310 10x3/uL (130-400); RBC Distribution Width 16.4 % (11.5-14.5); Red Blood Cell (RBC) Count 4.54 mill/uL (4.20-5.40); White Blood Cell (WBC) Count 9.3 10x3/uL (4.8-10.8)
[2022-07-28 08:00] LABS: Anion Gap 14 mmol/L (10-20); BUN (Urea Nitrogen) 17 mg/dL (9.8-20.1); Calc. Creatinine Clearance 75 mL/min (70-130); Calcium 9.3 mg/dL (7.8-10.44); Carbon Dioxide 19 mmol/L (23-31); Chloride 108 mmol/L (98-107); Estimated GFR 49; Glucose 294 mg/dL (80-115); Potassium 4.6 mmol/L (3.5-5.1); Sodium 136 mmol/L (136-145)
[2022-07-28] MEDS: Spironolactone 25 MG TAB PO SCH (08:07)
[2022-07-28] MEDS: Apixaban 5 MG TAB PO SCH ×2 (08:08→21:09)
[2022-07-28] MEDS: Pregabalin 75 MG CAP PO SCH ×3 (08:08→21:09)
[2022-07-28] MEDS: DULoxetine 60 MG CAP PO SCH (08:08)
[2022-07-28] MEDS: Empagliflozin 25 MG TAB PO SCH (08:08)
[2022-07-28] MEDS: Insulin Glargine 30 UNITS/0.3 ML VIAL SC SCH (08:21)
[2022-07-28] MEDS: Bumetanide 1 MG TAB PO SCH (08:43)
[2022-07-28] MEDS ORDERED: Furosemide 20 MG/2 ML VIAL SLOW IVP SCH (08:45)
[2022-07-28] MEDS: Arformoterol 15 MCG/2 ML NEB NEB SCH ×2 (10:55→18:27)
[2022-07-28] MEDS: Budesonide 0.5 MG/2 ML NEB NEB SCH ×2 (10:56→18:28)
[2022-07-28] MEDS: HYDROcodone/Acetaminophen 7.5/325 mg Tablet PO PRN (12:35)
[2022-07-28] MEDS: Rosuvastatin 10 MG TAB PO SCH (21:09)
[2022-07-28] MEDS: Acetaminophen 325 MG TAB PO PRN (21:13)
[2022-07-29] MEDS: HYDROcodone/Acetaminophen 7.5/325 mg Tablet PO PRN ×2 (00:56→09:34)
[2022-07-29] MEDS: hydrOXYzine 25 MG TAB PO PRN (00:56)
[2022-07-29] MEDS: Ipratropium/Albuterol 3 ML NEB NEB SCH ×2 (02:11→07:21)
[2022-07-29] MEDS: Levothyroxine Sodium 50 MCG TAB PO SCH (05:34)
[2022-07-29] MEDS: Cefepime 2 GM in Sodium Chloride 0.9% 100 ML IVPB SCH (05:34)
[2022-07-29 05:52] LABS: #Monocytes 0.6 thou/uL (0.11-0.59); #Neutrophils 13.6 thou/uL (1.40-6.50); %Basophils 0.1 % (0.0-1.0); %Lymphocytes 6.9 % (21.0-51.0); %Monocytes 4.1 % (0.0-10.0); %Neutrophils 88.2 % (42.0-75.0); Hemoglobin 13.8 g/dL (12.0-16.0); Mean Corpuscular HGB CONC 31.5 g/dL (32.0-36.0); Mean Corpuscular Hemoglobin 30.1 pg (27.0-31.0); Mean Corpuscular Volume 95.6 fl (78.0-98.0); Mean Platelet Volume 10.2 fL (7.4-10.4); Platelet Count 355 10x3/uL (130-400); RBC Distribution Width 16.7 % (11.5-14.5); Red Blood Cell (RBC) Count 4.58 mill/uL (4.20-5.40); White Blood Cell (WBC) Count 15.4 10x3/uL (4.8-10.8)
[2022-07-29 06:28] LABS: Anion Gap 16 mmol/L (10-20); BUN (Urea Nitrogen) 27 mg/dL (9.8-20.1); Calc. Creatinine Clearance 70 mL/min (70-130); Carbon Dioxide 20 mmol/L (23-31); Chloride 105 mmol/L (98-107); Estimated GFR 44; Glucose 318 mg/dL (80-115); Sodium 137 mmol/L (136-145)
[2022-07-29 06:29] LABS: Vancomycin, Trough 8.4 ug/mL
[2022-07-29] MEDS: Vancomycin 1 GM in Premix Bag 1 BAG IVPB SCH (06:31)
[2022-07-29] MEDS: Arformoterol 15 MCG/2 ML NEB NEB SCH (07:15)
[2022-07-29] MEDS: Budesonide 0.5 MG/2 ML NEB NEB SCH (07:25)
[2022-07-29] MEDS ORDERED: Bumetanide 1 MG TAB PO SCH (07:30)
[2022-07-29] MEDS ORDERED: predniSONE 20 MG TAB PO SCH (08:00)
[2022-07-29] MEDS ORDERED: Vancomycin 1.5 GRAM/300 ML BAG 1.5 GM in Premix Bag 1 BAG IVPB SCH (08:00)
[2022-07-29] MEDS: Empagliflozin 25 MG TAB PO SCH (09:13)
[2022-07-29] MEDS: DULoxetine 60 MG CAP PO SCH (09:13)
[2022-07-29] MEDS: Spironolactone 25 MG TAB PO SCH (09:13)
[2022-07-29] MEDS: Apixaban 5 MG TAB PO SCH (09:13)
[2022-07-29] MEDS: Insulin Glargine 30 UNITS/0.3 ML VIAL SC SCH (09:14)
[2022-07-29] MEDS: Pregabalin 75 MG CAP PO SCH (09:14)
[2022-07-29 12:25] VITALS: BP 139/92; TEMP 97.4
== END 2022-07-29 11:39 | disposition home or self-care (01) | DRG 189 ==
LOC: ERS 03:04 → T4-A 09:20
PROVIDERS: ADMIT Internal Medicine; ATTEND Internal Medicine
DX: J96.21 Acute and chronic respiratory failure with hypoxia (principal); J44.1 Chronic obstructive pulmonary disease with (acute) exacerbation; I13.0 Hypertensive heart and chronic kidney disease with heart failure and stage 1 through stage 4 chronic kidney disease, or unspecified chronic kidney disease; I50.32 Chronic diastolic (congestive) heart failure; Z68.41 Body mass index [BMI] 40.0-44.9, adult; Z99.81 Dependence on supplemental oxygen; M79.7 Fibromyalgia; G47.33 Obstructive sleep apnea (adult) (pediatric); E03.9 Hypothyroidism, unspecified; E78.00 Pure hypercholesterolemia, unspecified; I27.20 Pulmonary hypertension, unspecified; N18.30 Chronic kidney disease, stage 3 unspecified; E87.6 Hypokalemia; E11.65 Type 2 diabetes mellitus with hyperglycemia; Z20.822 Contact with and (suspected) exposure to COVID-19; Z96.651 Presence of right artificial knee joint; E66.9 Obesity, unspecified; F17.210 Nicotine dependence, cigarettes, uncomplicated; Z98.1 Arthrodesis status; Z88.5 Allergy status to narcotic agent; Z88.8 Allergy status to other drugs, medicaments and biological substances; Z79.899 Other long term (current) drug therapy; Z79.890 Hormone replacement therapy; Z79.01 Long term (current) use of anticoagulants
CPT/HCPCS: 36415; 36416; 71045; 71275; 80048; 80053; 80202; 82550; 83605; 83690; 83880; 84145; 84484; 85025; 87040; 87081; 87633; 87635; 87798; 93005; 94640; 96365; 96366; 96367; J0692; J1815; J1940; J1956; J2920; J3370; J3370-JW; J3490; J7512; J7611; J7620; J7626

== ENCOUNTER 2022-12-03 10:07 | Outpatient (CLI) | payer MEDICARE | END 2022-12-03 10:08 | disposition home or self-care (01) | LOC: BICMAMMO 10:07 | PROVIDERS: ATTEND Nurse Practitioner | DX: Z12.31 Encounter for screening mammogram for malignant neoplasm of breast (principal); Z12.2 Encounter for screening for malignant neoplasm of respiratory organs; J44.9 Chronic obstructive pulmonary disease, unspecified; R59.0 Localized enlarged lymph nodes; F17.210 Nicotine dependence, cigarettes, uncomplicated; J98.4 Other disorders of lung; Z80.3 Family history of malignant neoplasm of breast | CPT/HCPCS: 71271; 77063; 77067 ==

== ENCOUNTER 2022-12-22 09:54 | Outpatient (CLI) | payer MEDICARE ==
[2022-12-22] MEDS ORDERED: Iopamidol 370 76% 100 ML VIAL ONE (12:12)
== END 2022-12-22 09:55 | disposition home or self-care (01) ==
LOC: CT 09:54
PROVIDERS: ATTEND Nurse Practitioner
DX: R91.1 Solitary pulmonary nodule (principal)
CPT/HCPCS: 71260; 82565

== ENCOUNTER 2023-05-23 15:52 | Inpatient (IN) | payer MEDICARE ==
[2023-05-23 16:29] LABS: #Basophils 0.1 thou/uL (0.0-0.2); #Monocytes 0.8 thou/uL (0.11-0.59); #Neutrophils 13.9 thou/uL (1.40-6.50); %Basophils 0.3 % (0.0-1.0); %Eosinophils 0.1 % (0.0-10.0); %Lymphocytes 5.8 % (21.0-51.0); %Monocytes 4.9 % (0.0-10.0); %Neutrophils 88.4 % (42.0-75.0); Hematocrit 43.7 % (36.0-47.0); Hemoglobin 14.4 g/dL (12.0-16.0); Mean Corpuscular Hemoglobin 26.2 pg (27.0-31.0); Mean Corpuscular Volume 79.5 fl (78.0-98.0); Mean Platelet Volume 9.8 fL (7.4-10.4); Platelet Count 255 10x3/uL (130-400); RBC Distribution Width 18.9 % (11.5-14.5); White Blood Cell (WBC) Count 15.7 10x3/uL (4.8-10.8)
[2023-05-23] MEDS ORDERED: Ipratropium/Albuterol 3 ML NEB ONE (16:36)
[2023-05-23] MEDS ORDERED: Magnesium 2 GM/50 ML BAG (IN WATER) ONE (16:40)
[2023-05-23] MEDS ORDERED: methylPREDNISolone Sod Succ/PF 125 MG/2 ML VIAL ONE (16:40)
[2023-05-23] MEDS ORDERED: cefTRIAXone (ROCEPHIN) 2 GM VIAL ONE (16:40)
[2023-05-23] MEDS ORDERED: Sodium Chloride 0.9% 100 ML ONE (16:40)
[2023-05-23 16:49] LABS: Actual Bicarbonate (HCO3v) 23.2 mEq/L (22-28); Analyzer IN Cardio ER; Base Excess 0.2 mEq/L (-2.0 to +3.0); Calcium, Ionized (venous) 0.96 mmol/L (1.16-1.32); Chloride (VBG) 92 mmol/L (98-106); Hematocrit-VBG 46 % (36.0-47.0); Hemoglobin (Hb) 15.5 g/dL (11.7-16.1); Potassium (VBG) 5.01 mmol/L (3.70-5.30); Sodium 131 mmol/L (133-146); pH (venous) 7.463 (7.32-7.43)
[2023-05-23 16:49] LABS: ALT (SGPT) 29 U/L (8-55); AST (SGOT) 46 U/L (5-34); Albumin 3.3 g/dL (3.4-4.8); Alkaline Phosphatase 163 U/L (40-110); Anion Gap 19 mmol/L (10-20); BUN (Urea Nitrogen) 10 mg/dL (9.8-20.1); Bilirubin, Total 1.8 mg/dL (0.2-1.2); Calc. Creatinine Clearance 0 mL/min (70-130); Calcium 8.2 mg/dL (7.8-10.44); Carbon Dioxide 24 mmol/L (23-31); Chloride 94 mmol/L (98-107); Estimated GFR 54; Glucose 269 mg/dL (80-115); Potassium 4.7 mmol/L (3.5-5.1); Protein, Total 8.3 g/dL (5.8-8.1); Sodium 132 mmol/L (136-145)
[2023-05-23 16:50] LABS: Troponin I 0.023 ng/mL (< 0.028)
[2023-05-23 16:55] LABS: Bacteria/HPF None Seen HPF (None Seen); Bilirubin Negative (Negative); Blood, Urine Negative (Negative); CAUTI Indications for Culture Fever or rigors; Clarity Clear (Clear); Glucose, Urine (Dipstick) Greater than 1000 mg/dL (Negative); Ketone, Urine Negative (Negative); Leukocyte Negative Leu/uL (Negative); Nitrite Negative (Negative); Protein, Urine (Dipstick) Negative (Neg-Trace); RBC/HPF 0-3 HPF (0-3); Specific Gravity, Urine 1.019 (1.002-1.036); Squamous Epithelial 0-3 HPF (0-3); Urobilinogen Normal mg/dL (Less than 2); WBC/HPF 0-3 HPF (0-3); pH, Urine 7.5 (5.0-9.0)
[2023-05-23 16:58] LABS: Urine Culture Reflex No No
[2023-05-23] MEDS ORDERED: Furosemide 40 MG (4 mL) VIAL ONE (17:06)
[2023-05-23] MEDS ORDERED: Azithromycin 500 MG VIAL ONE (17:07)
[2023-05-23] MEDS ORDERED: Ondansetron PF 4 MG/2 ML Vial IVP PRN (17:53)
[2023-05-23] MEDS ORDERED: Acetaminophen 325 MG TAB PO PRN (17:53)
[2023-05-23] MEDS ORDERED: HumaLOG 300 UNITS/3 ML VIAL SC PRN (18:36)
[2023-05-23] MEDS ORDERED: Glucagon 1 MG/ML KIT IM PRN (18:36)
[2023-05-23] MEDS ORDERED: Dextrose 5% in Water 1,000 ML IV PRN (18:36)
[2023-05-23] MEDS ORDERED: Dextrose 50% Abboject 50 ML SYRINGE SLOW IVP PRN (18:36)
[2023-05-23 19:25] LABS: Legionella Urinary Ag Negative (Negative); Strep pneumo Urine Ag NEGATIVE (NEGATIVE)
[2023-05-23] MEDS: Ipratropium/Albuterol 3 ML NEB NEB SCH (20:16)
[2023-05-23] MEDS: Apixaban 5 MG TAB PO SCH (21:49)
[2023-05-23] MEDS: HumaLOG 300 UNITS/3 ML VIAL SC PRN (21:50)
[2023-05-24 01:00] LABS: Influenza A by NAA Not Detected (NotDetected); Influenza B by NAA Not Detected (NotDetected); RSV by NAA Not Detected (NotDetected); SARS-CoV-2 NAA Rapid Test Not Detected (NotDetected)
[2023-05-24 01:26] VITALS: BMI 38.4
[2023-05-24 05:52] LABS: #Monocytes 0.1 thou/uL (0.11-0.59); #Neutrophils 7.5 thou/uL (1.40-6.50); %Basophils 0.1 % (0.0-1.0); %Lymphocytes 7.6 % (21.0-51.0); %Neutrophils 90.9 % (42.0-75.0); Hematocrit 45.7 % (36.0-47.0); Hemoglobin 14.4 g/dL (12.0-16.0); Mean Corpuscular HGB CONC 31.5 g/dL (32.0-36.0); Mean Platelet Volume 9.7 fL (7.4-10.4); Platelet Count 264 10x3/uL (130-400); RBC Distribution Width 19.6 % (11.5-14.5); Red Blood Cell (RBC) Count 5.53 mill/uL (4.20-5.40); White Blood Cell (WBC) Count 8.2 10x3/uL (4.8-10.8)
[2023-05-24 05:54] LABS: Mean Corpuscular Volume 82.6 fl (78.0-98.0)
[2023-05-24 06:22] LABS: Anion Gap 19 mmol/L (10-20); BUN (Urea Nitrogen) 17 mg/dL (9.8-20.1); Calc. Creatinine Clearance 65 mL/min (70-130); Calcium 8.8 mg/dL (7.8-10.44); Carbon Dioxide 22 mmol/L (23-31); Chloride 97 mmol/L (98-107); Estimated GFR 45; Glucose 301 mg/dL (80-115); Magnesium 2.4 mg/dL (1.6-2.6); Potassium 3.6 mmol/L (3.5-5.1); Sodium 134 mmol/L (136-145)
[2023-05-24] MEDS: Furosemide 40 MG (4 mL) VIAL SLOW IVP SCH (06:33)
[2023-05-24] MEDS: Mometasone 100 MCG/Formoterol 5 MCG 120 PUFF INHALER INH SCH (07:08)
[2023-05-24] MEDS: Pantoprazole 40 MG VIAL IVP SCH (09:25)
[2023-05-24] MEDS: predniSONE 20 MG TAB PO SCH (09:26)
[2023-05-24 13:57] LABS: Critical Call Chemistry NUR.BMD1 @1357; Glucose 557 mg/dL (80-115)
[2023-05-24] MEDS ORDERED: Dextrose 5% in Water 1,000 ML IV PRN (14:23)
[2023-05-24] MEDS ORDERED: Ipratropium/Albuterol 3 ML NEB NEB PRN (14:46)
[2023-05-24] MEDS: Insulin Glargine 30 UNITS/0.3 ML VIAL SC SCH ×2 (15:04→21:16)
[2023-05-24] MEDS: Insulin Regular 300 UNITS/3 ML VIAL IVP SCH (15:05)
[2023-05-24] MEDS: cefTRIAXone\\ROCEPHIN 1 GM in Sodium Chloride 0.9% 100 ML IVPB SCH (15:10)
[2023-05-24] MEDS: Pregabalin 75 MG CAP PO SCH (15:11)
[2023-05-24] MEDS ORDERED: Azithromycin 500 MG in Sodium Chloride 0.9% 250 ML 250 ML IVPB SCH (17:00)
[2023-05-24] MEDS: HumaLOG 300 UNITS/3 ML VIAL SC PRN (17:44)
[2023-05-24] MEDS: Baclofen 10 MG TAB PO SCH (21:16)
[2023-05-24] MEDS: Rosuvastatin 10 MG TAB PO SCH (21:18)
[2023-05-24] MEDS: HYDROcodone/Acetaminophen 7.5/325 mg Tablet PO SCH (21:19)
[2023-05-25 05:39] LABS: #Neutrophils 12.5 thou/uL (1.40-6.50); %Basophils 0.1 % (0.0-1.0); %Lymphocytes 8.8 % (21.0-51.0); %Monocytes 6.7 % (0.0-10.0); %Neutrophils 83.9 % (42.0-75.0); Hematocrit 43.6 % (36.0-47.0); Hemoglobin 13.9 g/dL (12.0-16.0); Mean Corpuscular HGB CONC 31.9 g/dL (32.0-36.0); Mean Corpuscular Hemoglobin 26.6 pg (27.0-31.0); Mean Corpuscular Volume 83.4 fl (78.0-98.0); Mean Platelet Volume 9.8 fL (7.4-10.4); Platelet Count 325 10x3/uL (130-400); Red Blood Cell (RBC) Count 5.23 mill/uL (4.20-5.40); White Blood Cell (WBC) Count 14.9 10x3/uL (4.8-10.8)
[2023-05-25 06:03] LABS: Anion Gap 13 mmol/L (10-20); BUN (Urea Nitrogen) 22 mg/dL (9.8-20.1); Calc. Creatinine Clearance 72 mL/min (70-130); Calcium 9.1 mg/dL (7.8-10.44); Carbon Dioxide 31 mmol/L (23-31); Chloride 99 mmol/L (98-107); Estimated GFR 52; Glucose 114 mg/dL (80-115); Potassium 2.7 mmol/L (3.5-5.1); Sodium 140 mmol/L (136-145)
[2023-05-25] MEDS: Levothyroxine Sodium 50 MCG TAB PO SCH (06:09)
[2023-05-25] MEDS ORDERED: Electrolyte Replacement Protocol FS SCH (06:30)
[2023-05-25] MEDS: Potassium Chloride 20 MEQ TAB PO SCH ×2 (06:52→12:33)
[2023-05-25] MEDS ORDERED: Non-Formulary Item 1 EACH (Fluticasone/Umeclidin/Vilanter [Trelegy Ellipta 100-62.5-25] 1 IH SCH (09:00)
[2023-05-25] MEDS: Empagliflozin 25 MG TAB PO SCH (09:42)
[2023-05-25] MEDS: DULoxetine 60 MG CAP PO SCH (09:43)
[2023-05-25] MEDS: Spironolactone 25 MG TAB PO SCH (09:43)
[2023-05-25] MEDS: Buprenorphine HCl 2 MG SL TAB PO SCH (09:44)
[2023-05-25 16:28] LABS: Potassium 3.8 mmol/L (3.5-5.1)
[2023-05-26 05:56] LABS: #Monocytes 0.9 thou/uL (0.11-0.59); #Neutrophils 9.3 thou/uL (1.40-6.50); %Basophils 0.2 % (0.0-1.0); %Eosinophils 0.2 % (0.0-10.0); %Lymphocytes 14.7 % (21.0-51.0); %Monocytes 7.1 % (0.0-10.0); %Neutrophils 77.5 % (42.0-75.0); Hematocrit 43.8 % (36.0-47.0); Hemoglobin 13.8 g/dL (12.0-16.0); Mean Corpuscular HGB CONC 31.5 g/dL (32.0-36.0); Mean Corpuscular Hemoglobin 26.4 pg (27.0-31.0); Mean Corpuscular Volume 83.7 fl (78.0-98.0); Mean Platelet Volume 10.1 fL (7.4-10.4); Platelet Count 347 10x3/uL (130-400); RBC Distribution Width 19.1 % (11.5-14.5); Red Blood Cell (RBC) Count 5.23 mill/uL (4.20-5.40); White Blood Cell (WBC) Count 12.1 10x3/uL (4.8-10.8)
[2023-05-26 06:14] LABS: Anion Gap 15 mmol/L (10-20); BUN (Urea Nitrogen) 24 mg/dL (9.8-20.1); Calc. Creatinine Clearance 74 mL/min (70-130); Calcium 8.8 mg/dL (7.8-10.44); Carbon Dioxide 24 mmol/L (23-31); Chloride 100 mmol/L (98-107); Estimated GFR 54; Glucose 172 mg/dL (80-115); Magnesium 2.9 mg/dL (1.6-2.6); Potassium 4.2 mmol/L (3.5-5.1); Sodium 135 mmol/L (136-145)
[2023-05-26] MEDS: Cefdinir 300 MG CAP PO SCH (09:06)
[2023-05-26] MEDS: Bumetanide 1 MG TAB PO SCH (16:14)
[2023-05-27 15:53] VITALS: BP 112/71; TEMP 97.2
== END 2023-05-27 17:02 | disposition home or self-care (01) | DRG 291 ==
LOC: ERS 15:52 → IMCU/EMU 17:51 → 2NO 05-24 20:18
PROVIDERS: ADMIT Internal Medicine; ATTEND Family Medicine
PROC: 5A09357 Assistance with Respiratory Ventilation, Less than 24 Consecutive Hours, Continuous Positive Airway Pressure (ICD-10-PCS; principal; 2023-05-23)
DX: I13.0 Hypertensive heart and chronic kidney disease with heart failure and stage 1 through stage 4 chronic kidney disease, or unspecified chronic kidney disease (principal); I50.33 Acute on chronic diastolic (congestive) heart failure; J96.21 Acute and chronic respiratory failure with hypoxia; E87.1 Hypo-osmolality and hyponatremia; G89.29 Other chronic pain; M54.9 Dorsalgia, unspecified; M19.90 Unspecified osteoarthritis, unspecified site; E03.9 Hypothyroidism, unspecified; E78.00 Pure hypercholesterolemia, unspecified; Z98.51 Tubal ligation status; Z96.651 Presence of right artificial knee joint; F41.9 Anxiety disorder, unspecified; F32.A Depression, unspecified; Z87.891 Personal history of nicotine dependence; N18.30 Chronic kidney disease, stage 3 unspecified; J44.9 Chronic obstructive pulmonary disease, unspecified; E11.22 Type 2 diabetes mellitus with diabetic chronic kidney disease; Z79.899 Other long term (current) drug therapy; Z88.8 Allergy status to other drugs, medicaments and biological substances; Z79.01 Long term (current) use of anticoagulants; Z79.4 Long term (current) use of insulin; Z82.49 Family history of ischemic heart disease and other diseases of the circulatory system; I48.0 Paroxysmal atrial fibrillation; G47.33 Obstructive sleep apnea (adult) (pediatric); I27.20 Pulmonary hypertension, unspecified; E87.6 Hypokalemia; E11.65 Type 2 diabetes mellitus with hyperglycemia
CPT/HCPCS: 0241U; 36415; 36416; 71045; 80048; 80053; 81001; 82805; 83605; 83735; 83880; 84484; 85025; 87040; 87086; 87449; 87899; 93005; 93306; 94640; 94660; 96365; 96366; 96367; 96368; 96375; C9113; J0456; J0571; J0696; J1815; J1940; J2930; J3475; J3490; J7512; J7620